=== PATIENT | female | born 1965 | race Caucasian/White ===

== ENCOUNTER 2021-01-03 19:38 | Inpatient (IN) | payer MEDICARE, SELFPAY ==
--- NOTE | ~2021-01-03 | XR_ITS ---
EXAMINATION: XR CHEST CLINICAL INFORMATION: Tachypnea. COMPARISON: Chest done on 04/12/2019. TECHNIQUE: Frontal view of the chest was obtained. FINDINGS: Persistent stable linear airspace disease is noted at left lung base, most consistent with pleuroparenchymal scar or atelectasis. The remainder of the lung mclean are clear. Previously documented pulmonary venous congestion shows interval resolution. Cardiac mediastinal silhouette is within normal limit. No evidence of pleural effusion or pneumothorax. XR/XR chest 1V IMPRESSION: No radiographic evidence of any acute cardiopulmonary disease.
[2021-01-03 19:48] VITALS: BP 137/77; BP 150/90; PULSE 100; PULSE 105; RESP 20; TEMP 36.7; O2SAT 98; BMI 39.1
--- NOTE | 2021-01-03 20:33 | ED_ITS ---
HPI - Psych General Chief Complaint: ETOH/Substance Use Stated Complaint: etoh Time Seen by Provider: 01/03/21 19:54 Source: patient and EMS Mode of arrival: EMS Limitations: no limitations History of Present Illness HPI Narrative: This is a 55-year-old female with a past medical history of depression here with complaints of increasing depression over the last 3 weeks with suicidal thoughts. Patient denies any plan. She tells me this is the 1 year anniversary of her son's . For the last 3 weeks she has not showered, not left her house, poor p.o. intake. She tells me that her parents spoke to her psychiatrist today who sent the police to her house for wellness check. She did have several drinks of vodka sodas prior to arrival. She does not drink daily. Denies substance use. No physical complaints Related Data Home Medications Medication Instructions Recorded Confirmed dextroamphetamine-amphetamine 30 1 tab PO BID 01/03/21 01/03/21 mg tablet lorazepam 0.5 mg tablet 1 tab PO TID PRN 01/03/21 01/03/21 lurasidone 60 mg tablet (Latuda) 1 tab PO BEDTIME 01/03/21 01/03/21 Allergies Allergy/AdvReac Type Severity Reaction Status Date / Time No Known Allergies Allergy Unknown Unverified 11/20/19 16:06 Review of Systems Review of Systems: Yes all other systems are reviewed and are negative Constitutional: Constitutional: Reports no additional constitutional complaints, Denies body ache(s), Denies chills, Denies fever(s), Denies headache(s) and Denies weakness Eyes: Eyes: Reports no additional eye complaints and Denies change in vision ENT: Reports system reviewed and no additional complaints, except as documented, Denies dizziness, Denies headache(s), Denies nasal congestion, Denies nasal discharge and Denies neck pain Cardiovascular: Cardiovascular: Reports no additional cardiovascular complaints, Denies chest pain, Denies leg edema and Denies dyspnea Respiratory: Respiratory: Reports no additional respiratory complaints, Denies cough and Denies dyspnea Gastrointestinal: Gastrointestinal: Reports no additional gastrointestinal complaints, Denies abdominal pain, Denies diarrhea, Denies nausea and Denies vomiting Genitourinary: Genitourinary: Reports no additional female genitourinary complaints and Denies urinary incontinence Musculoskeletal: Musculoskeletal: Reports no additional musculoskeletal complaints, Denies back pain, Denies arthralgias, Denies joint swelling, Denies neck pain, Denies numbness and Denies tingling Integumentary/Breasts: Skin/Breast: Reports system reviewed and no additional complaints, except as docu and Denies rash Neurologic: Reports system reviewed and no additional complaints, except as documented, Denies Abnormal speech present, Denies dizziness, Denies headache (s), Denies numbness, Denies tingling and Denies weakness Psychiatric: Psychiatric: Denies anxiety, Reports depression, Denies homicidal ideation and Reports suicidal ideation [facility] Past Medical History Attestation statement: The following information was validated with the patient. Source: old records reviewed and nursing notes reviewed Social History Social History Advance Directives: No Physical Exam Vital Signs: Vital Signs: Last Vital Signs Temp 98.0 F 01/03/21 19:48 Pulse 105 H 01/03/21 19:48 Resp 20 01/03/21 19:48 BP 137/77 01/03/21 19:48 Pulse Ox 98 01/03/21 19:48 Body Mass Index 39.1 Const: Other: Very disheveled General: cooperative Orientation/consciousness: patient oriented x3 Limitations: no limitations HENMT: Head: Yes normal to inspection Ears: hearing grossly normal bilaterally General nose exam: Normal external nose present Face and sin us: Yes normal facial exam Mouth: Normal oral and palatal mucosa present Throat: Yes posterior oropharynx normal Eyes: General: appearance normal, both eyes and all related structures Pupils: Equal, round and reactive pupils present Neck: Neck: Yes normal visual inspection Chest: Chest palpation & inspection: normal inspection of the chest Resp: Effort & Inspection: normal respiratory effort Auscultation: clear to auscultation bilaterally Cardio: Rate: regular rate Rhythm: regular rhythm Peripheral pulses: Peripheral pulses 2+ throughout GI: Inspection: Yes normal to inspection Palpation (GI): Soft to palpation and nontender Auscultation: normal bowel sounds Back/Spine/Pelvis: Thoracic/Lumbar Spine: thoracic and lumbar spine normal to inspection Skin: General skin exam: no rashes or lesions noted Neuro: General: patient oriented x3, no focal motor deficits and normal sensat ion to monofilament Cranial nerves: Yes CN's II-XII intact bilaterally and Yes Equal, round and reactive pupils present Cognition (Neuro): normal cognition Speech: No Abnormal speech present Gait exam (Neuro): Normal gait present Motor exam (neuro): 5/5 motor strength present throughout Extrem: General: Yes normal to inspection, Yes no pedal edema and Yes no calf tenderness Course Course Course Narrative: 55-year-old female here with complaints of depression, vague SI for the last few weeks on due to an anniversary of her son's . Also very disheveled, not showering, poor p.o. intake, has left her house in 3 weeks. Lost her job. Will need labs, COVID screen, drug screen. No concern for acute ingestion or trauma. Signed a Section 12 and placed on chart. 2210-reviewed labs. Mild hypokalemia. Ordered replacement. Mildly elevated LFTs likely secondary to alcohol use.. No concern for acute ingestion or trauma. Placed in physician observation pending a crisis evaluation and disposition MDM - Psych Medical Records Attestation: I reviewed the patient's medical records. Lab Data Attestation: I reviewed the patient's lab results. Result diagrams: 01/03/21 21:06 01/03/21 21:06 Labs: Lab Results 01/03/21 01/03/21 01/03/21 Range/Units 21:06 21:06 21:06 WBC 10.1 (4.8-10.8) X10*3/uL RBC 3.44 L (4.20-5.50) X10*6/uL Hgb 11.1 L (12.0-16.0) g/dl Hct 32.7 L (37.0-47.0) % MCV 95.1 (80.0-98.0) fL MCH 32.3 (27.0-33.0) pg MCHC 33.9 (31.0-35.0) g/dl RDW 19.9 H (11.0-16.0) % Plt Count 181 (160-400) X10*3/uL MPV 9.2 L (9.4-12.3) fL Immature Gran % (Auto) 0.8 H (0.0-0.4) % Neut % (Auto) 68.0 (45-73) % Lymph % (Auto) 24.0 (20-40) % [place] % (Auto) 4.5 (2-11) % Eos % (Auto) 2.5 (0-4) % Baso % (Auto) 0.2 (0-2) % Lymph # (Auto) 2.4 (1.2-4.9) X10*3/uL [place] # (Auto) 0.5 (0.1-1.2) X10*3/uL Eos # (Auto) 0.3 (0.0-0.4) X10*3/uL Baso # (Auto) 0.0 (0.0-0.2) X10*3/uL Abs Immat Gran (auto) 0.08 H (0.00-0.03) X10*3/uL Absolute Neuts (auto) 6.87 (2.0-8.3) x10*3/uL Absolute Nucleated RBC 0.000 (0.0-0.012) X10*3/uL Nucleated RBC % (auto) 0.0 (0.0-0.2) /100WBC Sodium 141 (135-145) mmol/L Potassium 3.0 L (3.3-5.1) mmol/L Chloride 97 (96-108) mmol/L Carbon Dioxide 27 (22-29) mmol/L Anion Gap 20 (12-20) BUN 6 L (9-16) mg/dL Creatinine 0.57 (0.5-1.4) mg/dL Estim Creat Clear Calc 143.1 Estimated GFR > 60 Random Glucose 103 (60-115) mg/dL Calcium 8.6 (8.4-10.2) mg/dL Total Bilirubin 1.1 H (0.0-1.0) mg/dL Direct Bilirubin 0.5 (0.0-0.5) mg/dL AST 103 H (5-31) U/L ALT 43 H (0-31) U/L Alkaline Phosphatase 129 H (39-117) U/L Total Protein 6.4 L (6.5-8.0) g/dL Albumin 3.8 (3.5-5.0) g/dL Salicylates < 5.0 L (15-30) mg/dL Acetaminophen < 1 (<30) mcg/mL Ethyl Alcohol mg/dL COVID-19 (LYNDA) Negative (Negative) COVID-19 Clin Com See Note 01/03/21 Range/Units 21:06 WBC (4.8-10.8) X10*3/uL RBC (4.20-5.50) X10*6/uL Hgb (12.0-16.0) g/dl Hct (37.0-47.0) % MCV (80.0-98.0) fL MCH (27.0-33.0) pg MCHC (31.0-35.0) g/dl RDW (11.0-16.0) % Plt Count (160-400) X10*3/uL MPV (9.4-12.3) fL Immature Gran % (Auto) (0.0-0.4) % Neut % (Auto) (45-73) % Lymph % (Auto) (20-40) % [place] % (Auto) (2-11) % Eos % (Auto) (0-4) % Baso % (Auto) (0-2) % Lymph # (Auto) (1.2-4.9) X10*3/uL [place] # (Auto) (0.1-1.2) X10*3/uL Eos # (Auto) (0.0-0.4) X10*3/uL Baso # (Auto) (0.0-0.2) X10*3/uL Abs Immat Gran (auto) (0.00-0.03) X10*3/uL Absolute Neuts (auto) (2.0-8.3) x10*3/uL Absolute Nucleated RBC (0.0-0.012) X10*3/uL Nucleated RBC % (auto) (0.0-0.2) /100WBC Sodium (135-145) mmol/L Potassium (3.3-5.1) mmol/L Chloride (96-108) mmol/L Carbon Dioxide (22-29) mmol/L Anion Gap (12-20) BUN (9-16) mg/dL Creatinine (0.5-1.4) mg/dL Estim Creat Clear Calc Estimated GFR Random Glucose (60-115) mg/dL Calcium (8.4-10.2) mg/dL Total Bilirubin (0.0-1.0) mg/dL Direct Bilirubin (0.0-0.5) mg/dL AST (5-31) U/L ALT (0-31) U/L Alkaline Phosphatase (39-117) U/L Total Protein (6.5-8.0) g/dL Albumin (3.5-5.0) g/dL Salicylates (15-30) mg/dL Acetaminophen (<30) mcg/mL Ethyl Alcohol 260 mg/dL COVID-19 (LYNDA) (Negative) COVID-19 Clin Com Discharge Plan Discharge Clinical Impression: Depression, Suicidal thoughts Prescriptions: No Action dextroamphetamine-amphetamine 30 mg tablet 1 tab PO BID RF: 0 lorazepam 0.5 mg tablet 1 tab PO TID PRN (Reason: Anxiety) RF: 0 Latuda 60 mg tablet 1 tab PO BEDTIME RF: 0
--- NOTE | 2021-01-03 20:44 | MHC.CARE ---
CARE team consult received for pt who arrived to ED via ambulance s/p wellness check. She is intoxicated at this time and reported to the provider that it's the first anniversary of her son's and that she doesn't want to be alive anymore. Per family- she has had poor ADLs for the last few weeks. Consult is pending BAL and being medically/clinically appropriate for interview. Pt has [employer] insurance and if a full crisis evaluation is needed she will be referred to [facility] crisis.
--- NOTE | 2021-01-03 20:56 | PHA.MEDREC ---
Pharmacy Consult ? Medication Reconciliation Pharmacy has completed the medication reconciliation. Yolis De La CruzD
[2021-01-03 21:11] LABS: MANUAL DIFF FLAG NO
[2021-01-03 21:23] LABS: Basophils Percent Auto 0.2 % (0-2); Eosinophils Absolute Auto 0.3 X10*3/uL (0.0-0.4); Eosinophils Percent Auto 2.5 % (0-4); Hematocrit 32.7 % (37.0-47.0); Hemoglobin 11.1 g/dl (12.0-16.0); Imm Gran Abs Auto 0.08 X10*3/uL (0.00-0.03); Imm Gran Pct Auto 0.8 % (0.0-0.4); Lymphocytes Absolute Auto 2.4 X10*3/uL (1.2-4.9); Mean Corpuscular HGB Conc 33.9 g/dl (31.0-35.0); Mean Corpuscular Hemoglobin 32.3 pg (27.0-33.0); Mean Corpuscular Volume 95.1 fL (80.0-98.0); Mean Platelet Volume 9.2 fL (9.4-12.3); Monocytes Absolute Auto 0.5 X10*3/uL (0.1-1.2); Monocytes Percent Auto 4.5 % (2-11); Neutrophils Absolute Auto 6.87 x10*3/uL (2.0-8.3); Platelet Count 181 X10*3/uL (160-400); Red Blood Count 3.44 X10*6/uL (4.20-5.50); Red Cell Distribution Width 19.9 % (11.0-16.0); White Blood Count 10.1 X10*3/uL (4.8-10.8)
[2021-01-03 21:28] LABS: COVID-19 Test Negative (Negative)
[2021-01-03 21:38] LABS: Ethanol 260 mg/dL
[2021-01-03 21:42] LABS: Acetaminophen LAB < 1 mcg/mL (<30); Alanine Aminotransferase 43 U/L (0-31); Albumin Level 3.8 g/dL (3.5-5.0); Alkaline Phosphatase 129 U/L (39-117); Anion Gap 20 (12-20); Aspartate Amino Transferase 103 U/L (5-31); Bilirubin Direct 0.5 mg/dL (0.0-0.5); Bilirubin Total 1.1 mg/dL (0.0-1.0); Blood Urea Nitrogen 6 mg/dL (9-16); Calcium 8.6 mg/dL (8.4-10.2); Carbon Dioxide 27 mmol/L (22-29); Chloride 97 mmol/L (96-108); Creatinine Clr Calc Pharmacy 143.1; Estimated Glomerular Filt Rate > 60; Glucose Random 103 mg/dL (60-115); Sodium 141 mmol/L (135-145); Total Protein 6.4 g/dL (6.5-8.0)
[2021-01-03 21:43] LABS: Salicylate < 5.0 mg/dL (15-30)
[2021-01-03 23:28] VITALS: BP 129/49; PULSE 98; RESP 17; TEMP 36.6; O2SAT 93
--- NOTE | 2021-01-04 | ECG_ITS ---
Test Reason : TACHYCARDIA Blood Pressure : / mmHG Vent. Rate : 118 BPM Atrial Rate : 118 BPM P-R Int : 140 ms QRS Dur : 068 ms QT Int : 330 ms P-R-T Axes : 043 010 002 degrees QTc Int : 462 ms Sinus tachycardia Nonspecific ST abnormality Abnormal ECG When compared with ECG of 12-APR-2019 08:39, Vent. rate has increased BY [address] now depressed in Lateral leads Referred By: Laure Hester Electronically Signed By:BIANCA CORTEZ MD
[2021-01-04] MEDS: Albuterol Sulfate 90 MCG 8 GM INHALER 1 PUFF INHALE ×2 (00:09→08:12)
[2021-01-04] MEDS: LORazepam 0.5 MG TABLET PO (05:17)
--- NOTE | 2021-01-04 05:25 | PC.NURSE ---
Patient slept through the night, no distress observed/reported, scored 2 on CIWA, requested PRN Ativan 0.5 mg said she takes every morning, administered as ordered, behavior appropriate, medication compliant, [facility] referral completed/confirmed, patient will be seen by N in the morning, VSS, will continue to monitor.
[2021-01-04 05:50] LABS: Amphetamine Screen Urine Not Detected (Not Detect); Barbiturates, Urine Not Detected (Not Detect); Benzodiazepines Screen Urine Not Detected (Not Detect); Cannabinoid Screen Urine Not Detected (Not Detect); Cocaine Screen Urine Not Detected (Not Detect); Fentanyl, urine Not Detected (Not Detect); Opiate Screen Urine Not Detected (Not Detect); Phencyclidine Screen Urine Not Detected (Not Detect)
[2021-01-04 06:13] LABS: Appearance Urine CLEAR; Color Urine DK YELLOW; Glucose Urine UA NEG (NEG); Leukocyte Esterase Urine NEG (NEG); Nitrite Urine NEG (NEG); Urine Blood NEG (NEG); Urine Ketones 5 MG/DL (NEG); Urine Protein NEG (NEG-TRACE)
--- NOTE | 2021-01-04 07:26 | PC.NURSE ---
patient appears to remain asleep at present respirations are even and unlabored, patient appears in no distress
[2021-01-04 07:58] VITALS: BP 195/84; PULSE 110; RESP 15; TEMP 37.9; O2SAT 91
[2021-01-04] MEDS: chlordiazePOXIDE HCl 5 MG CAPSULE 25 MG PO (08:04)
[2021-01-04] MEDS: Acetaminophen 325 MG TABLET 975 MG PO (08:04)
[2021-01-04] MEDS: Potassium Chloride ER 20 MEQ TAB.ER.PRT 60 MEQ PO (08:04)
[2021-01-04] MEDS: Amphetamine Mixed Salts 10 MG TABLET 30 MG PO ×2 (08:04→13:03)
--- NOTE | 2021-01-04 11:46 | MHC.CARE ---
Patient evaluated by the CARE Team, she will require an inpatient psychiatric admission, the plan is for her to remain in the ED until a placement is secured, she is voluntary for treatment. Providers updated
[2021-01-04] MEDS: chlordiazePOXIDE HCl 5 MG CAPSULE 50 MG PO (11:59)
[2021-01-04 15:07] VITALS: BP 196/96; PULSE 120; RESP 20; TEMP 37.3; O2SAT 96
[2021-01-04] MEDS: PHENobarbitaL sodium 130 MG/ML VIAL 246 MG IM (15:46)
[2021-01-04] MEDS: LORazepam 2 MG/ML VIAL IVPUSH (15:50)
[2021-01-04] MEDS: Magnesium Sulfate/H2O 2 GM/50 ML PIGGYBACK IV (15:51)
[2021-01-04] MEDS: Thiamine HCL 100 MG in 0.9 % Sodium Chloride 100 ML 202 MG IV (15:52)
[2021-01-04] MEDS: 0.9 % Sodium Chloride 1,000 ML 999 ML IVCONT ×2 (15:55→17:42)
[2021-01-04 15:59] LABS: MANUAL DIFF FLAG NO
[2021-01-04 16:02] LABS: Basophils Percent Auto 0.2 % (0-2); Eosinophils Absolute Auto 0.2 X10*3/uL (0.0-0.4); Hemoglobin 11.4 g/dl (12.0-16.0); Imm Gran Abs Auto 0.06 X10*3/uL (0.00-0.03); Imm Gran Pct Auto 0.7 % (0.0-0.4); Lymphocytes Absolute Auto 1.5 X10*3/uL (1.2-4.9); Lymphocytes Percent Auto 16.2 % (20-40); Mean Corpuscular HGB Conc 33.5 g/dl (31.0-35.0); Mean Corpuscular Hemoglobin 32.1 pg (27.0-33.0); Mean Corpuscular Volume 95.8 fL (80.0-98.0); Mean Platelet Volume 8.6 fL (9.4-12.3); Monocytes Absolute Auto 0.5 X10*3/uL (0.1-1.2); Neutrophils Percent Auto 75.9 % (45-73); Platelet Count 164 X10*3/uL (160-400); Red Blood Count 3.55 X10*6/uL (4.20-5.50); Red Cell Distribution Width 20.1 % (11.0-16.0); White Blood Count 9.1 X10*3/uL (4.8-10.8)
--- NOTE | 2021-01-04 16:06 | PC.NURSE ---
patient a&ox3, iv inserted, labs drawn, ekg performed, patient placed on cardiac monitor technician- sinus tach on monitor, vss, pt medicated per order, librium held per provider, pharmacy called for folic acid- will administer upon it being delivered to ed, will continue to monitor.
[2021-01-04 16:19] LABS: Anion Gap 17 (12-20); Blood Urea Nitrogen 10 mg/dL (9-16); Calcium 8.7 mg/dL (8.4-10.2); Carbon Dioxide 30 mmol/L (22-29); Chloride 99 mmol/L (96-108); Estimated Glomerular Filt Rate > 60; Glucose Random 110 mg/dL (60-115); Potassium 3.5 mmol/L (3.3-5.1); Sodium 142 mmol/L (135-145)
[2021-01-04] MEDS: Folic Acid 1 MG in 0.9 % Sodium Chloride 50 ML 100.4 MG IV (17:13)
[2021-01-04 17:23] VITALS: BP 174/92; PULSE 107; RESP 22; TEMP 37.3; O2SAT 94
[2021-01-04 18:47] VITALS: BP 182/85; PULSE 112; RESP 24; TEMP 37.1; O2SAT 95
--- NOTE | 2021-01-04 20:06 | P.HPHOSP_ITS ---
History of Present Illness Date of Service: 01/04/21 Chief Complaint: SI, alcohol withdrawal 55-year-old female with history of bipolar disorder who presents to the hospital after being found at home intoxicated and reporting suicidal ideation. According to report some family member had called police department to do a wellness check on patient, they found her to be intoxicated and held only drinking. Of according to the patient is her son's 1 year anniversary and she has been feeling very depressed. She was initially admitted for behavioral health but was found to be withdrawing from alcohol and therefore transferred to medical ED and evaluated for alcohol withdrawal. Patient reports that she dr inks heavily every day, she is complaining of feeling anxious, but denies any suicidal ideation at this time, she denies having any chest pain, no shortness of breath, no abdominal pain nausea or vomiting, no diarrhea constipation, no urinary symptoms and no lower extremity edema. Of note patient reports that she has history of hypertension but has stopped taking med medication about a year and half ago because she has been able To get in to see her doctor Vitals reviewed show a temperature of a 100.2?, heart rate of 110, blood pressure 195/84, satting 91% on room air Labs are significant for WBC count of 8.2, hemoglobin of 9.6 which is lower than her baseline of around 15, platelet count of 157, potassium of 3.0, Patient will be admitted for management of alcohol withdrawal Review of Systems Review of Systems: Yes all other systems are reviewed and are negative [facility] Medical History Bipolar disorder Hypertension Pertinent family history: No family history Surgical History History of Social History Alcohol intake: current Alcohol intake frequency: 3 or more drinks per day Alcohol type: hard liquor Patient Tobacco Use Status: Former Tobacco user Use of substances other than those prescribed or required for medical reasons: No Advance Directives: No Guardian: No service: No Current occupational status: unemployed Meds Allergies Allergy/AdvReac Type Severity Reaction Status Date / Time No Known Allergies Allergy Unknown Unverified 11/20/19 16:06 Active Medications: Current Medications Albuterol Sulfate (Albuterol Sulfate 90 Mcg 8 Gm Inhaler) 1 puff INHALE Q4H PRN PRN Reason: wheezing Last Admin: 01/04/21 08:12 Dose: 1 puff Documented by: Amphetamine/Dextroamphetamine (Amphetamine Mixed Salts 10 Mg Tablet) 30 mg PO BID@0830,1330 [facility] Last Admin: 01/04/21 13:03 Dose: 30 mg Documented by: Lurasidone HCl (Lurasidone Hcl 20 Mg Tablet) 60 mg PO BEDTIME [facility] Medication (No Benzodiazepines) 1 each MISCELLANE DAILY [facility] Pharmacy Consult (Consult Rx Perform Med Rec) 1 each MISCELLANE ONCE PRN PRN Reason: Consult order Phenobarbital (Phenobarbital 15 Mg Tablet) 45 mg PO BID [facility] Stop: 01/06/21 21:01 Phenobarbital (Phenobarbital 30 Mg Tablet) 30 mg PO BID [facility] Stop: 01/08/21 21:01 Phenobarbital (Phenobarbital 15 Mg Tablet) 15 mg PO DAILY [facility] Stop: 01/10/21 09:01 Phenobarbital Sodium (Phenobarbital Sodium 130 Mg/Ml Vial) 185 mg IM 1999,2299 [facility] Stop: 01/04/21 23:01 Home Medications Medication Instructions Recorded Confirmed Last Taken Type albuterol sulfate 90 mcg/actuation 1 puff INHALATION Q4H PRN 01/03/21 01/03/21 Unknown History aerosol inhaler dextroamphetamine-amphetamine 30 1 tab PO BID 01/03/21 01/03/21 01/03/21 History mg tablet lorazepam 0.5 mg tablet 1 tab PO TID PRN 01/03/21 01/03/21 Unknown History lurasidone 60 mg tablet (Latuda) 1 tab PO BEDTIME 01/03/21 01/03/21 Unknown History Physical Exam Vital Signs and Narrative: Vital Signs: Last Vital Signs Temp 98.7 F 01/04/21 18:47 Pulse 112 H 01/04/21 18:47 Resp 24 H 01/04/21 18:47 BP 182/85 H 01/04/21 18:47 Pulse Ox 95 01/04/21 18:47 Body Mass Index 39.1 Const: General: cooperative and no acute distress Orientation/consciousness: patient oriented x3 Eyes: General: appearance normal, both eyes and all related structures Pupils: Equal, round and reactive pupils present Resp: Effort & Inspection: normal respiratory effort Auscultation: clear to auscultation bilaterally Cardio: Rate: regular rate Rhythm: regular rhythm GI: Palpation (GI): Soft to palpation Auscultation: normal bowel sounds Skin: General skin exam: no rashes or lesions noted Neuro: General: patient oriented x3 Cranial nerves: Yes Equal, round and reactive pupils present Cognition (Neuro): normal cognition Extrem: General: Yes normal to inspection and Yes no pedal edema Results Labs CBC and Chem 7: 01/05/21 05:56 01/05/21 05:56 Labs: Laboratory Results - last 24 hr 01/03/21 01/03/21 01/03/21 21:06 21:06 21:06 MCV 95.1 MCH 32.3 MCHC 33.9 RDW 19.9 H Plt Count 181 MPV 9.2 L Immature Gran % (Auto) 0.8 H Neut % (Auto) 68.0 Lymph % (Auto) 24.0 Glenn % (Auto) 4.5 Eos % (Auto) 2.5 Baso % (Auto) 0.2 Lymph # (Auto) 2.4 Glenn # (Auto) 0.5 Eos # (Auto) 0.3 Baso # (Auto) 0.0 Abs Immat Gran (auto) 0.08 H Absolute Neuts (auto) 6.87 Absolute Nucleated RBC 0.000 Nucleated RBC % (auto) 0.0 Anion Gap 20 Estim Creat Clear Calc 143.1 Estimated GFR > 60 Random Glucose 103 Calcium 8.6 Total Bilirubin 1.1 H Direct Bilirubin 0.5 AST 103 H ALT 43 H Alkaline Phosphatase 129 H Total Protein 6.4 L Albumin 3.8 Urine Color Urine Appearance Urine pH Ur Specific [place] Urine Protein Urine Glucose (UA) Urine Ketones Urine Blood Urine Nitrite Ur Leukocyte Esterase Salicylates < 5.0 L Urine Opiates Screen Urine Fentanyl Screen Acetaminophen < 1 Ur Barbiturates Screen Ur Phencyclidine Scrn Ur Amphetamines Screen U Benzodiazepines Scrn Urine Cocaine Screen U Marijuana (THC) Screen Ethyl Alcohol COVID-19 (LYNDA) Negative COVID-19 Clin Com See Note 01/03/21 01/04/21 01/04/21 21:06 05:31 05:31 MCV MCH MCHC RDW Plt Count MPV Immature Gran % (Auto) Neut % (Auto) Lymph % (Auto) [place] % (Auto) Eos % (Auto) Baso % (Auto) Lymph # (Auto) Glenn # (Auto) Eos # (Auto) Baso # (Auto) Abs Immat Gran (auto) Absolute Neuts (auto) Absolute Nucleated RBC Nucleated RBC % (auto) Anion Gap Estim Creat Clear Calc Estimated GFR Random Glucose Calcium Total Bilirubin Direct Bilirubin AST ALT Alkaline Phosphatase Total Protein Albumin Urine Color DK YELLOW Urine Appearance CLEAR Urine pH 6.0 Ur Specific [place] 1.010 Urine Protein NEG Urine Glucose (UA) NEG Urine Ketones 5 Urine Blood NEG Urine Nitrite NEG Ur Leukocyte Esterase NEG Salicylates Urine Opiates Screen Not Detected Urine Fentanyl Screen Not Detected Acetaminophen Ur Barbiturates Screen Not Detected Ur Phencyclidine Scrn Not Detected Ur Amphetamines Screen Not Detected U Benzodiazepines Scrn Not Detected Urine Cocaine Screen Not Detected U Marijuana (THC) Screen Not Detected Ethyl Alcohol 260 COVID-19 (LYNDA) COVID-[place] 01/04/21 01/04/21 15:49 15:49 MCV 95.8 MCH 32.1 MCHC 33.5 RDW 20.1 H Plt Count 164 MPV 8.6 L Immature Gran % (Auto) 0.7 H Neut % (Auto) 75.9 H Lymph % (Auto) 16.2 L [place] % (Auto) 5.0 Eos % (Auto) 2.0 Baso % (Auto) 0.2 Lymph # (Auto) 1.5 Glenn # (Auto) 0.5 Eos # (Auto) 0.2 Baso # (Auto) 0.0 Abs Immat Gran (auto) 0.06 H Absolute Neuts (auto) 6.90 Absolute Nucleated RBC 0.000 Nucleated RBC % (auto) 0.0 Anion Gap 17 Estim Creat Clear Calc 136.0 Estimated GFR > 60 Random Glucose 110 Calcium 8.7 Total Bilirubin Direct Bilirubin AST ALT Alkaline Phosphatase Total Protein Albumin Urine Color Urine Appearance Urine pH Ur Specific [place] Urine Protein Urine Glucose (UA) Urine Ketones Urine Blood Urine Nitrite Ur Leukocyte Esterase Salicylates Urine Opiates Screen Urine Fentanyl Screen Acetaminophen Ur Barbiturates Screen Ur Phencyclidine Scrn Ur Amphetamines Screen U Benzodiazepines Scrn Urine Cocaine Screen U Marijuana (THC) Screen Ethyl Alcohol COVID-19 (LYNDA) COVID-19 [employer] Assessment and Plan (1) Alcohol withdrawal syndrome: Qualifiers: Complication of substance-induced condition: uncomplicated Qualified Code(s): F10.230 - Alcohol dependence with withdrawal, uncomplicated Status: Acute (2) Suicidal thoughts: Status: Acute (3) Hypertensive crisis: Status: Acute 55-year-old female with past medical history of who hypertension noncompliant with medication presents to the hospital with suicidal ideation as well as alcohol withdrawal # alcohol abuse with alcohol withdrawal - patient is a daily alcohol drinker, brought into the hospital initially for suicidal ideation, developed alcohol withdrawal symptoms , start on phenobarb protocol - thiamine and folic acid supplement # suicidal ideation - has history of bipolar disorder as well as reports depression after the loss of her son - sitter at bedtime - crisis team consulted by ED # hypertension crisis - most likely driven by alcohol withdrawal and also history of noncompliance with medications - does not remember her previous antihypertensive - will treat alcohol withdrawal as well as start her on amlodipine 5 mg daily # tachycardia, tachypnea - although most likely driven by alcohol withdrawal, will rule out infection, will obtain chest x-ray as well as UA - patient afebrile, has no leukocytosis DVT prophylaxis: Lovenox Quality Stroke Does the patient have a stroke diagnosis?: No VTE Prior VTE?: No VTE Risk Level:: Medical - moderate - high VTE Device Contraindication: Treatment Not Indicated VTE Drug Contraindication: N/A - Med Ordered
[2021-01-04] MEDS: PHENobarbitaL sodium 130 MG/ML VIAL 185 MG IM ×2 (20:07→23:14)
[2021-01-04] MEDS: Lurasidone HCl 20 MG TABLET 60 MG PO (21:18)
[2021-01-04 21:30] VITALS: BP 154/88; PULSE 113; RESP 24; TEMP 36.9; O2SAT 94
--- NOTE | 2021-01-04 23:02 | MHC.CM.PN ---
CM met with admitted patient with bed assignment pending. Reviewed CARE team note. Pt will need in house psych admission when medically cleared. IMM reviewed and signed per protocol 01/04/2021 @ 2206. Pt is very concerned that once she is not in withdrawal she will be d/c home. Re-assured patient that according to the CARE team assessment, patient will need in house psych to deal with her depression and inability to care for herself. Pt is very pleasant and forthcoming, but a bit teary. First anniversary of her 26 year old sons from an accidental overdose. Pt lives in her father's 3 family home on the 2nd floor. States her father helps her quite a bit. Uses a walker and a cane. Has services through [facility]. Therapist and Ranjeet Hawthorne APRN. Pt does not have a PCP. Has been going to urgent care for the past several years. Pt is fully vaccinated with J&J 08/2020. No HCP on file. Reviewed and completed. Copies given and uploaded into [facility] [employer] and [facility]. HCP/father Oskar Ennis ([phone], ). D/C plan is for in house psych hospitalization when medically cleared . CM and CARE team to follow for d/c needs.
[2021-01-05] VITALS (11 sets, daily range): BP systolic 144–189; BP diastolic 71–95; PULSE 105–115; RESP 16–25; TEMP 37.2–37.3; O2SAT 94–97
[2021-01-05] MEDS: Thiamine HCL 100 MG TABLET PO (02:32)
[2021-01-05] MEDS: Enoxaparin Sodium 40 MG/0.4 ML SYRINGE SUBCUT (02:32)
[2021-01-05] MEDS: Folic Acid 1 MG TABLET PO (02:32)
[2021-01-05] MEDS: 0.9 % Sodium Chloride Flush 3 ML SYRINGE IVFLUSH ×2 (02:58→08:30)
[2021-01-05 06:12] LABS: MANUAL DIFF FLAG NO
[2021-01-05 06:15] LABS: Basophils Percent Auto 0.1 % (0-2); Eosinophils Absolute Auto 0.2 X10*3/uL (0.0-0.4); Eosinophils Percent Auto 2.8 % (0-4); Hematocrit 28.5 % (37.0-47.0); Hemoglobin 9.6 g/dl (12.0-16.0); Imm Gran Abs Auto 0.06 X10*3/uL (0.00-0.03); Imm Gran Pct Auto 0.7 % (0.0-0.4); Lymphocytes Absolute Auto 1.7 X10*3/uL (1.2-4.9); Lymphocytes Percent Auto 20.4 % (20-40); Mean Corpuscular HGB Conc 33.7 g/dl (31.0-35.0); Mean Corpuscular Hemoglobin 32.7 pg (27.0-33.0); Mean Corpuscular Volume 96.9 fL (80.0-98.0); Mean Platelet Volume 8.9 fL (9.4-12.3); Monocytes Absolute Auto 0.4 X10*3/uL (0.1-1.2); Monocytes Percent Auto 4.4 % (2-11); Neutrophils Absolute Auto 5.87 x10*3/uL (2.0-8.3); Neutrophils Percent Auto 71.6 % (45-73); Platelet Count 157 X10*3/uL (160-400); Red Blood Count 2.94 X10*6/uL (4.20-5.50); Red Cell Distribution Width 20.1 % (11.0-16.0); White Blood Count 8.2 X10*3/uL (4.8-10.8)
--- NOTE | 2021-01-05 06:35 | PC.NURSE ---
Pt notified MARI Kaufman that she is feeling anxious. Mandeep made this RN aware. This RN to bedside, assessed pt's VS and CIWA which are elevated. Ladarius Monson, primary RN made aware who contacted Dr Harry to notify. Plan for additional dose of phenobarb.
[2021-01-05 06:39] LABS: Anion Gap 13 (12-20); Blood Urea Nitrogen 8 mg/dL (9-16); Calcium 8.2 mg/dL (8.4-10.2); Carbon Dioxide 30 mmol/L (22-29); Chloride 99 mmol/L (96-108); Estimated Glomerular Filt Rate > 60; Glucose Random 91 mg/dL (60-115); Potassium 3.2 mmol/L (3.3-5.1); Sodium 139 mmol/L (135-145)
[2021-01-05] MEDS: PHENobarbitaL sodium 130 MG/ML VIAL IM (06:48)
[2021-01-05 07:30] LABS: Magnesium 1.6 mg/dL (1.6-2.6)
[2021-01-05] MEDS: Potassium Chloride Packet 20 MEQ PACKET 40 MEQ PO ×2 (08:31→13:26)
[2021-01-05] MEDS: amLODIPine Besylate 5 MG TABLET PO (08:38)
[2021-01-05] MEDS: Amphetamine Mixed Salts 10 MG TABLET 30 MG PO ×2 (08:52→13:53)
[2021-01-05] MEDS: PHENobarbitaL 15 MG TABLET 45 MG PO ×2 (09:53→20:43)
--- NOTE | 2021-01-05 10:30 | PC.NURSE ---
pt a/o x 3 no sob/robert noted skin pink warn dry speaks in full sentences. pt denies any si/hi.
[2021-01-05] MEDS: Albuterol Sulfate 90 MCG 8 GM INHALER 1 PUFF INHALE (14:16)
[2021-01-05] MEDS: Metoprolol Tartrate 25 MG TABLET PO ×2 (14:56→20:43)
--- NOTE | 2021-01-05 15:44 | HO.PM.IMPN ---
Subjective Subjective Date of Service: 01/05/21 Interval History: No acute events overnight on phenobarb protocol. No overt signs of withdrawal; no seizures Review of Systems Denies chest pain Denies shortness of breath Denies nausea vomiting diarrhea Physical Exam Vital Signs: Vital Signs: Last Vital Signs Temp 99.1 F 01/05/21 13:40 Pulse 115 H 01/05/21 14:56 Resp 20 01/05/21 14:54 BP 157/84 H 01/05/21 14:56 Pulse Ox 96 01/05/21 14:54 Body Mass Index 39.1 Const: Other: No acute distress HENMT: Other: Membranes moist oropharynx clear Resp: Other: Clear to auscultation bilaterally no rales rhonchi wheezes Cardio: Other: No S4; positive S1-S2; no S3 murmurs of gallops GI: Other: Soft nontender nondistended with normoactive bowel sounds x4 quadrants Neuro: Other: Cranial nerves 2-12 grossly intact as tested. Motor is 5/5 all extremities. Sensation is intact. Cognition is appropriate. Mild tremors bilateral upper extremities Objective Data Active Medications Acetaminophen (Acetaminophen 325 Mg Tablet) 650 mg PO Q6H PRN PRN Reason: Pain, Mild (Pain Scale 1-3) Albuterol Sulfate (Albuterol Sulfate 90 Mcg 8 Gm Inhaler) 1 puff INHALE Q4H PRN PRN Reason: wheezing Last Admin: 01/05/21 14:16 Dose: 1 puff Documented by: MIKE Amlodipine Besylate (Amlodipine Besylate 5 Mg Tablet) 5 mg PO DAILY [facility]END[facility] TO [facility]; Protocol Last Admin: 01/05/21 09:55 Dose: Not Given Documented by: HOLDEN Non-Admin Reason: Duplicate Order Amphetamine/Dextroamphetamine (Amphetamine Mixed Salts 10 Mg Tablet) 30 mg PO BID@0830,1330 [facility] Last Admin: 01/05/21 13:53 Dose: 30 mg Documented by: HOLDEN Docusate Sodium (Docusate Sodium 100 Mg Capsule) 100 mg PO DAILY PRN PRN Reason: Constipation Enoxaparin Sodium (Enoxaparin Sodium 40 Mg/0.4 Ml Syringe) 40 mg SUBCUT Q24H PENDING [facility] TO [facility] Last Admin: 01/05/21 02:32 Dose: 40 mg Documented by: CARRIE Folic Acid (Folic Acid 1 Mg Tablet) 1 mg PO DAILY [facility] TO [facility] Last Admin: 01/05/21 09:55 Dose: Not Given Documented by: HOLDEN Non-Admin Reason: Duplicate Order Lurasidone HCl (Lurasidone Hcl 20 Mg Tablet) 60 mg PO BEDTIME [facility] Last Admin: 01/04/21 21:18 Dose: 60 mg Documented by: CARRIE Medication (No Benzodiazepines) 1 each MISCELLANE DAILY [facility] TO [facility] Metoprolol Tartrate (Metoprolol Tartrate 25 Mg Tablet) 25 mg PO BID [facility]; Protocol Last Admin: 01/05/21 14:56 Dose: 25 mg Documented by: HOLDEN Ondansetron HCl (Ondansetron Hcl 4 Mg/2 Ml Vial) 4 mg IVPUSH Q8H PRN PRN Reason: Nausea and Vomiting Pharmacy Consult (Consult Rx Perform Med Rec) 1 each MISCELLANE ONCE PRN PRN Reason: Consult order Phenobarbital (Phenobarbital 15 Mg Tablet) 45 mg PO BID [facility] Stop: 01/06/21 21:01 Last Admin: 01/05/21 09:53 Dose: 45 mg Documented by: HOLDEN Phenobarbital (Phenobarbital 30 Mg Tablet) 30 mg PO BID [facility] Stop: 01/08/21 21:01 Phenobarbital (Phenobarbital 15 Mg Tablet) 15 mg PO DAILY [facility] Stop: 01/10/21 09:01 Sodium Chloride (0.9 % Sodium Chloride Flush 3 Ml Syringe) 3 ml IVFLUSH QSHIFT PENDING S[facility] TO [facility] Last Admin: 01/05/21 08:30 Dose: 3 ml Documented by: HOLDEN Thiamine HCl (Thiamine Hcl 100 Mg Tablet) 100 mg PO DAILY [facility] Last Admin: 01/05/21 09:55 Dose: Not Given Documented by: HOLDEN Non-Admin Reason: Duplicate Order Labs CBC & Chem 7: 01/05/21 05:56 01/05/21 05:56 Labs: Laboratory Results - last 24 hr 01/04/21 01/04/21 01/05/21 15:49 15:49 05:56 MCV 95.8 96.9 MCH 32.1 32.7 MCHC 33.5 33.7 RDW 20.1 H 20.1 H Plt Count 164 157 L MPV 8.6 L 8.9 L Immature Gran % (Auto) 0.7 H 0.7 H Neut % (Auto) 75.9 H 71.6 Lymph % (Auto) 16.2 L 20.4 [place] % (Auto) 5.0 4.4 Eos % (Auto) 2.0 2.8 Baso % (Auto) 0.2 0.1 Lymph # (Auto) 1.5 1.7 [place] # (Auto) 0.5 0.4 Eos # (Auto) 0.2 0.2 Baso # (Auto) 0.0 0.0 Abs Immat Gran (auto) 0.06 H 0.06 H Absolute Neuts (auto) 6.90 5.87 Absolute Nucleated RBC 0.000 0.000 Nucleated RBC % (auto) 0.0 0.0 Anion Gap 17 Estim Creat Clear Calc 136.0 Estimated GFR > 60 Random Glucose 110 Calcium 8.7 Magnesium 01/05/21 05:56 MCV MCH MCHC RDW Plt Count MPV Immature Gran % (Auto) Neut % (Auto) Lymph % (Auto) [place] % (Auto) Eos % (Auto) Baso % (Auto) Lymph # (Auto) [place] # (Auto) Eos # (Auto) Baso # (Auto) Abs Immat Gran (auto) Absolute Neuts (auto) Absolute Nucleated RBC Nucleated RBC % (auto) Anion Gap 13 Estim Creat Clear Calc 154.0 Estimated GFR > 60 Random Glucose 91 Calcium 8.2 L Magnesium 1.6 Assessment and Plan (1) Alcohol withdrawal syndrome: Status: Acute (2) Suicidal thoughts: Status: Acute Assessment and Plan: 55-year-old female with past medical history of hypertension , noncompliant with medication presents to the hospital with suicidal ideation as well as alcohol withdrawal 1. EToH Withdraw Phenobarb protocol... Admit to telemetry Seizure precautions Beta-gerardo for tachycardia/hypertension Haldol p.r.n. agitation 2. Bipolar disorder with questionable suicidal ideation One-to-one sitter Care team consult once cleared from alcohol withdrawal 3. Hypertension Beta-gerardo titrate to heart rate less than 100/BP 1 20s DC amlodipine DVT prophylaxis: Lovenox Quality Stroke Does the patient have a stroke diagnosis?: No VTE Prior VTE?: No VTE Risk Level:: Medical - moderate - high VTE Device Contraindication: Treatment Not Indicated VTE Drug Contraindication: N/A - Med Ordered
[2021-01-05] MEDS: LORazepam 2 MG/ML VIAL 1 MG IVPUSH (16:11)
[2021-01-05] MEDS: Lurasidone HCl 20 MG TABLET 60 MG PO (20:43)
[2021-01-06] VITALS (7 sets, daily range): BP systolic 126–157; BP diastolic 57–83; PULSE 98–104; RESP 16–19; TEMP 36.3–37.2; O2SAT 92–100; BMI 39.3
[2021-01-06] MEDS: 0.9 % Sodium Chloride Flush 3 ML SYRINGE IVFLUSH ×3 (00:31→15:39)
[2021-01-06] MEDS: diphenhydrAMINE HCL 25 MG TABLET PO (02:00)
[2021-01-06] MEDS: Enoxaparin Sodium 40 MG/0.4 ML SYRINGE SUBCUT (02:00)
[2021-01-06] MEDS: PHENobarbitaL 15 MG TABLET 45 MG PO ×2 (08:42→20:46)
[2021-01-06] MEDS: Folic Acid 1 MG TABLET PO (08:43)
[2021-01-06] MEDS: amLODIPine Besylate 5 MG TABLET PO (08:43)
[2021-01-06] MEDS: Metoprolol Tartrate 25 MG TABLET PO ×2 (08:43→20:47)
[2021-01-06] MEDS: Thiamine HCL 100 MG TABLET PO (08:43)
[2021-01-06] MEDS: Amphetamine Mixed Salts 10 MG TABLET 30 MG PO ×2 (08:43→13:09)
--- NOTE | 2021-01-06 09:40 | MHC.CARE ---
Please consult CARE Team when Pt is medically cleared- Pt was found to meet criteria for [facility] admission on 01/04/21.
[2021-01-06] MEDS: hydrOXYzine HCL 25 MG TABLET PO (13:09)
--- NOTE | 2021-01-06 17:04 | HO.PM.IMPN ---
Subjective Subjective Date of Service: 01/06/21 Interval History: Doing well with phenobarb protocol.. No acute issues mild anxiety Review of Systems Denies chest pain Denies shortness of breath Denies nausea vomiting diarrhea Physical Exam Vital Signs: Vital Signs: Last Vital Signs Temp 97.4 F 01/06/21 15:45 Pulse 104 H 01/06/21 15:45 Resp 17 01/06/21 15:45 BP 150/82 H 01/06/21 16:00 Pulse Ox 100 01/06/21 15:45 Body Mass Index 39.3 Const: Other: No acute distress HENMT: Other: Membranes moist oropharynx clear Resp: Other: Clear to auscultation bilaterally no rales rhonchi wheezes Cardio: Other: No S4; positive S1-S2; no S3 murmurs of gallops GI: Other: Soft nontender nondistended with normoactive bowel sounds x4 quadrants Neuro: Other: Cranial nerves 2-12 grossly intact as tested. Motor is 5/5 all extremities. Sensation is intact. Cognition is appropriate. Mild tremors bilateral upper extremities Objective Data Active Medications Acetaminophen (Acetaminophen 325 Mg Tablet) 650 mg PO Q6H PRN PRN Reason: Pain, Mild (Pain Scale 1-3) Albuterol Sulfate (Albuterol Sulfate 90 Mcg 8 Gm Inhaler) 1 puff INHALE Q4H PRN PRN Reason: wheezing Last Admin: 01/05/21 14:16 Dose: 1 puff Documented by: MIKE Amlodipine Besylate (Amlodipine Besylate 5 Mg Tablet) 5 mg PO DAILY [facility]; Protocol Last Admin: 01/06/21 08:43 Dose: 5 mg Documented by: BEULAH Amphetamine/Dextroamphetamine (Amphetamine Mixed Salts 10 Mg Tablet) 30 mg PO BID@0830,1330 [facility] Last Admin: 01/06/21 13:09 Dose: 30 mg Documented by: BEULAH Docusate Sodium (Docusate Sodium 100 Mg Capsule) 100 mg PO DAILY PRN PRN Reason: Constipation Enoxaparin Sodium (Enoxaparin Sodium 40 Mg/0.4 Ml Syringe) 40 mg SUBCUT Q24H [facility] Last Admin: 01/06/21 02:00 Dose: 40 mg Documented by: ALEKSANDR Folic Acid (Folic Acid 1 Mg Tablet) 1 mg PO DAILY [facility] Last Admin: 01/06/21 08:43 Dose: 1 mg Documented by: BEULAH Hydroxyzine HCl (Hydroxyzine Hcl 25 Mg Tablet) 25 mg PO Q6H PRN PRN Reason: Anxiety Last Admin: 01/06/21 13:09 Dose: 25 mg Documented by: BEULAH Lurasidone HCl (Lurasidone Hcl 20 Mg Tablet) 60 mg PO BEDTIME [facility] Last Admin: 01/05/21 20:43 Dose: 60 mg Documented by: KAILEY Medication (No Benzodiazepines) 1 each MISCELLANE DAILY [facility] Metoprolol Tartrate (Metoprolol Tartrate 25 Mg Tablet) 25 mg PO BID [facility]; Protocol Last Admin: 01/06/21 08:43 Dose: 25 mg Documented by: BEULAH Ondansetron HCl (Ondansetron Hcl 4 Mg/2 Ml Vial) 4 mg IVPUSH Q8H PRN PRN Reason: Nausea and Vomiting Pharmacy Consult (Consult Rx Perform Med Rec) 1 each MISCELLANE ONCE PRN PRN Reason: Consult order Phenobarbital (Phenobarbital 15 Mg Tablet) 45 mg PO BID [facility] Stop: 01/06/21 21:01 Last Admin: 01/06/21 08:42 Dose: 45 mg Documented by: BEULAH Phenobarbital (Phenobarbital 30 Mg Tablet) 30 mg PO BID [facility] Stop: 01/08/21 21:01 Phenobarbital (Phenobarbital 15 Mg Tablet) 15 mg PO DAILY [facility] Stop: 01/10/21 09:01 Sodium Chloride (0.9 % Sodium Chloride Flush 3 Ml Syringe) [facility] Last Admin: 01/06/21 15:39 Dose: 3 ml Documented by: MAVIS Thiamine HCl (Thiamine Hcl 100 Mg Tablet) 100 mg PO DAILY [facility] Last Admin: 01/06/21 08:43 Dose: 100 mg Documented by: BEULAH Labs CBC & Chem 7: 01/05/21 05:56 01/05/21 05:56 Assessment and Plan (1) Alcohol withdrawal syndrome: Status: Acute (2) Suicidal thoughts: Status: Acute Assessment and Plan: 55-year-old female with past medical history of hypertension , noncompliant with medication presents to the hospital with suicidal ideation as well as alcohol withdrawal 1. EToH Withdraw Doing well with phenobarb ... No signs withdrawal Re-evaluated a.m. question transfer that time 2. Bipolar disorder with questionable suicidal ideation One-to-one sitter Care team consult once cleared from alcohol withdrawal 3. Hypertension Beta-gerardo titrate to heart rate less than 100/BP 1 20s DC amlodipine DVT prophylaxis: Lovenox Quality Stroke Does the patient have a stroke diagnosis?: No VTE Prior VTE?: No VTE Risk Level:: Medical - moderate - high VTE Device Contraindication: Treatment Not Indicated VTE Drug Contraindication: N/A - Med Ordered
[2021-01-06] MEDS: Lurasidone HCl 20 MG TABLET 60 MG PO (20:47)
[2021-01-07] VITALS: BP 128/64; PULSE 91; RESP 18; TEMP 37.1; O2SAT 98
[2021-01-07] MEDS: 0.9 % Sodium Chloride Flush 3 ML SYRINGE IVFLUSH ×2 (01:33→07:42)
[2021-01-07] MEDS: Enoxaparin Sodium 40 MG/0.4 ML SYRINGE SUBCUT (02:28)
[2021-01-07 03:30] VITALS: BP 125/54; PULSE 90; RESP 18; TEMP 37.1; O2SAT 99
[2021-01-07 05:35] LABS: MANUAL DIFF FLAG NO
[2021-01-07 05:42] LABS: Basophils Percent Auto 0.3 % (0-2); Eosinophils Absolute Auto 0.3 X10*3/uL (0.0-0.4); Hematocrit 28.3 % (37.0-47.0); Hemoglobin 9.2 g/dl (12.0-16.0); Imm Gran Abs Auto 0.25 X10*3/uL (0.00-0.03); Imm Gran Pct Auto 2.4 % (0.0-0.4); Lymphocytes Absolute Auto 2.3 X10*3/uL (1.2-4.9); Lymphocytes Percent Auto 21.9 % (20-40); Mean Corpuscular HGB Conc 32.5 g/dl (31.0-35.0); Mean Corpuscular Hemoglobin 32.2 pg (27.0-33.0); Mean Platelet Volume 9.2 fL (9.4-12.3); Monocytes Absolute Auto 0.6 X10*3/uL (0.1-1.2); Monocytes Percent Auto 5.9 % (2-11); Neutrophils Percent Auto 66.5 % (45-73); Platelet Count 190 X10*3/uL (160-400); Red Blood Count 2.86 X10*6/uL (4.20-5.50); Red Cell Distribution Width 20.5 % (11.0-16.0); White Blood Count 10.5 X10*3/uL (4.8-10.8)
[2021-01-07 06:17] LABS: Alanine Aminotransferase 27 U/L (0-31); Albumin Level 3.2 g/dL (3.5-5.0); Alkaline Phosphatase 104 U/L (39-117); Anion Gap 12 (12-20); Aspartate Amino Transferase 55 U/L (5-31); Bilirubin Total 0.8 mg/dL (0.0-1.0); Blood Urea Nitrogen 10 mg/dL (9-16); Calcium 8.2 mg/dL (8.4-10.2); Carbon Dioxide 27 mmol/L (22-29); Chloride 105 mmol/L (96-108); Creatinine Clr Calc Pharmacy 138.7; Estimated Glomerular Filt Rate > 60; Glucose Fasting 98 mg/dL (60-99); Sodium 140 mmol/L (135-145); Total Protein 5.5 g/dL (6.5-8.0)
[2021-01-07] MEDS: Amphetamine Mixed Salts 10 MG TABLET 30 MG PO ×2 (07:42→13:04)
[2021-01-07] MEDS: amLODIPine Besylate 5 MG TABLET PO (07:42)
[2021-01-07] MEDS: Thiamine HCL 100 MG TABLET PO (07:42)
[2021-01-07] MEDS: Folic Acid 1 MG TABLET PO (07:42)
[2021-01-07] MEDS: Metoprolol Tartrate 25 MG TABLET PO (07:42)
[2021-01-07] MEDS: PHENobarbitaL 30 MG TABLET PO (07:42)
[2021-01-07 08:00] VITALS: BP 175/83; PULSE 96; RESP 18; TEMP 36.4; O2SAT 98
--- NOTE | 2021-01-07 09:10 | MHC.CM.PN ---
PER HOSPITALIST PT MEDICALLY CLEARED, CM MET W/CARE TEAM WHO REPORTS PT WILL BE ADMITTED TO LATER TODAY AND ADDISON FROM CARE TEAM WILL ARRANGE TIME/TRANSFER.
--- NOTE | 2021-01-07 11:23 | PM.DS ---
DS: Providers Provider Date of Service: 01/07/21 Date of admission: 01/04/21 20:06 Primary care physician: None Physician Consults: 01/03/21 20:13 Consult to Care Team Stat Comment: Reason for consultation: si 01/03/21 22:55 BHN [Consult to Crisis] Stat Reason for consultation: behavioral dysregulation DS: Diagnosis Discharge Diagnosis (1) Alcohol withdrawal syndrome: Status: Acute (2) Suicidal thoughts: Status: Acute DS: Summary Hospital Course Hospital Course: 55-year-old female with history of bipolar disorder who presents to the hospital after being found at home intoxicated and reporting suicidal ideation.? According to report some family member had called police department to do a wellness check on patient, they found her to be intoxicated and held only drinking.? Of according to the patient is her son's 1 year anniversary and she has been feeling very depressed.? She was initially admitted for behavioral health but was found to be withdrawing from alcohol and therefore transferred to medical ED and evaluated for alcohol withdrawal.? Patient reports that she drinks heavily every day, she is complaining of feeling anxious, but denies any suicidal ideation at this time, she denies having any chest pain, no shortness of breath, no abdominal pain nausea or vomiting, no diarrhea constipation, no urinary symptoms and no lower extremity edema. Of note patient reports that she has history of hypertension but has stopped taking med medication about a year and half ago because she has been able To get in to see her doctor Vitals reviewed show a temperature of a 100.2?, heart rate of 110, blood pressure 195/84, satting 91% on room air Labs are significant for? WBC count of 8.2, hemoglobin of 9.6? which is lower than her baseline of around 15, platelet count of 157, potassium of? 3.0, Hospital course Patient admitted to telemetry with one-to-one sitter. Electrolytes normalized with fluids and repletion and she was maintained on phenobarb protocol without issue; no seizures noted. Her tachycardia was controlled with beta-gerardo. At this time she is medically suitable for transfer to Time Spent with Patient Time attestation: Total time spent providing and/or coordinating discharge services: Discharge coordination time: Greater than 30 minutes Quality: Stroke Does the patient have a stroke diagnosis?: No Physical Exam Vital Signs: Vital Signs: Last Vital Signs Temp 97.5 F 01/07/21 08:00 Pulse 96 01/07/21 08:00 Resp 18 01/07/21 08:00 BP 175/83 H 01/07/21 08:00 Pulse Ox 98 01/07/21 08:00 Body Mass Index 39.3 Const: Other: No acute distress HENMT: Other: Membranes moist oropharynx clear Resp: Other: Clear to auscultation bilaterally no rales rhonchi wheezes Cardio: Other: No S4; positive S1-S2; no S3 murmurs of gallops GI: Other: Soft nontender nondistended with normoactive bowel sounds x4 quadrants Neuro: Other: Cranial nerves 2-12 grossly intact as tested. Motor is 5/5 all extremities. Sensation is intact. Cognition is appropriate. Mild tremors bilateral upper extremities DS: Data Data Completed and Pending Labs on day of discharge: Laboratory Results - last 24 hr 01/07/21 01/07/21 05:09 05:09 WBC 10.5 RBC 2.86 L Hgb 9.2 L Hct 28.3 L MCV 99.0 H MCH 32.2 MCHC 32.5 RDW 20.5 H Plt Count 190 MPV 9.2 L Immature Gran % (Auto) 2.4 H Neut % (Auto) 66.5 Lymph % (Auto) 21.9 [place] % (Auto) 5.9 Eos % (Auto) 3.0 Baso % (Auto) 0.3 Lymph # (Auto) 2.3 [place] # (Auto) 0.6 Eos # (Auto) 0.3 Baso # (Auto) 0.0 Abs Immat Gran (auto) 0.25 H Absolute Neuts (auto) 7.0 Absolute Nucleated RBC 0.000 Nucleated RBC % (auto) 0.0 Sodium 140 Potassium 4.0 D Chloride 105 Carbon Dioxide 27 Anion Gap 12 BUN 10 Creatinine 0.59 Estim Creat Clear Calc 138.7 Estimated GFR > 60 Fasting Glucose 98 Calcium 8.2 L Total Bilirubin 0.8 AST 55 H ALT 27 Alkaline Phosphatase 104 Total Protein 5.5 L Albumin 3.2 L Discharge Plan Discharge Disposition: Xfer Psychiatric Hosp Referrals: Physician,None [Primary Care Provider] - 1 Week Discharge Medications: Continued dextroamphetamine-amphetamine 30 mg tablet 1 tab PO BID RF: 0 lorazepam 0.5 mg tablet 1 tab PO TID PRN (Reason: Anxiety) RF: 0 Latuda 60 mg tablet 1 tab PO BEDTIME RF: 0 albuterol sulfate 90 mcg/actuation HFA aerosol inhaler 1 puff inhalation Q4H PRN (Reason: wheezing) RF: 0 Discharge Orders: Discharge Order (Routine); Ordered 01/07/21 Ordered By: Loki Brito Forms: Patient Portal Discharge page Care Plan Goals: As per psych Health Concerns: Absence from alcohol Plan of Treatment: Outpatient AA or abuse treatment Assessment: Stable
== END 2021-01-07 13:36 | DRG 305 ==
LOC: HO.ED 01-04 15:53 → HO.EDOVER 01-04 20:17 → HO.S3 01-05 18:32
PROVIDERS: Emergency Medicine; Nurse Practitioner Family; Student in an Organized Health Care Education/Training Program; Admitting Provider Internal Medicine; Emergency Provider Emergency Medicine; Visit Provider Hospitalist
DX: I16.9 Hypertensive crisis, unspecified (principal); R45.851 Suicidal ideations; F10.239 Alcohol dependence with withdrawal, unspecified; F31.9 Bipolar disorder, unspecified; I10 Essential (primary) hypertension; Z20.822 Contact with and (suspected) exposure to COVID-19; F10.229 Alcohol dependence with intoxication, unspecified; Z87.891 Personal history of nicotine dependence; Z79.899 Other long term (current) drug therapy
CPT/HCPCS: 36415; 71045; 80048; 80053; 80076; 80143; 80179; 80307; 81003; 82077; 83735; 85025; 87635; 93005; 94640; 96365; 96367; 96372; 96375; 99285; 99291; J1650; J2060; J2560; J3411; J3475; Q0163

== ENCOUNTER 2021-01-07 11:17 | Inpatient (IN) | payer MEDICARE, SELFPAY ==
[2021-01-07 14:30] VITALS: BP 147/69; PULSE 105; RESP 16; TEMP 36.4; O2SAT 94
[2021-01-07 15:41] VITALS: BMI 43.8
--- NOTE | 2021-01-07 16:47 | PC.ADMIT ---
Pt admitted to unit from [place] [id number] on a conditional voluntary. PT reports a diagnosis of bipolar. PT initally presented to [facility] ED for SI and ETOH withdrawal. PT was admitted medically for ETOH withdrawal. PT reports that she was drinking 1/2 handle daily for some time PT reports that her depression has been increasing, she had been drinking more and caring for herself less, she states the final straw was the annivsary of her son's . She reports he one year ago of an overdose and they are unsure if the overdose was intentional or accidental. PT reports that she was initially suicidal but denies that she feels suicidal now. PT states she has been on medications for a long time and has been doing multiple medication changes and that while on the medical unit she was started on lithium and has so far found that medication helpful. PT is covid negative, tox screen was negative for substances with a BAL of 260 on 01/03. 15 minute safety checks initiated for safety.
[2021-01-07] MEDS: LORazepam 1 MG TABLET PO ×2 (17:50→21:48)
--- NOTE | 2021-01-07 18:42 | P.HPPS_ITS ---
HPI Chief Complaint: Alcohol withdrawal, SI [facility] Medical History Bipolar disorder Hypertension Surgical History History of Diagnostics Vital Signs (24Hr): Vital Signs - 24 hr 01/07/21 14:30 Temperature 97.5 F Pulse Rate 105 H Respiratory Rate 16 Blood Pressure 147/69 H Pulse Oximetry 94 Body Mass Index 43.8 Meds/Allergies Meds Home Medications Acetaminophen (Acetaminophen 325 Mg Tablet) 650 mg PO Q6H PRN PRN Reason: Headache/Pain Mild Scale (1-3) Al Hydroxide/Mg Hydroxide (Magnesium Hydrox/Alum Hydrox 30 Ml Oral.Susp) 30 ml PO Q6H PRN PRN Reason: Heartburn/Nausea Albuterol Sulfate (Albuterol Sulfate 90 Mcg 8 Gm Inhaler) 1 puff INHALE Q4H PRN PRN Reason: wheezing Amlodipine Besylate (Amlodipine Besylate 5 Mg Tablet) 5 mg PO DAILY [facility]; Protocol Amphetamine/Dextroamphetamine (Amphetamine Mixed Salts 10 Mg Tablet) 30 mg PO BID@0830,1330 [facility] Docusate Sodium (Docusate Sodium 100 Mg Capsule) 100 mg PO DAILY PRN PRN Reason: Constipation Hydroxyzine HCl (Hydroxyzine Hcl 25 Mg Tablet) 25 mg PO Q6H PRN PRN Reason: Anxiety Lorazepam (Lorazepam 1 Mg Tablet) 1 mg PO TID [facility] Last Admin: 01/07/21 17:50 Dose: 1 mg Documented by: Lurasidone HCl (Lurasidone Hcl 20 Mg Tablet) 60 mg PO BEDTIME [facility] Magnesium Hydroxide (Milk Of Magnesia 30 Ml Oral.Susp) 30 ml PO DAILY PRN PRN Reason: Constipation Metoprolol Tartrate (Metoprolol Tartrate 25 Mg Tablet) 25 mg PO BID [facility]; Protocol Thiamine HCl (Thiamine Hcl 100 Mg Tablet) 100 mg PO DAILY [facility] Trazodone HCl (Trazodone Hcl 50 Mg Tablet) 50 mg PO BEDTIME PRN PRN Reason: Insomnia Allergies Allergies Allergy/AdvReac Type Severity Reaction Status Date / Time No Known Allergies Allergy Unknown Unverified 11/20/19 16:06
[2021-01-07] MEDS: Lurasidone HCl 20 MG TABLET 60 MG PO (21:47)
[2021-01-07 21:48] VITALS: BP 164/74; PULSE 106
[2021-01-07] MEDS: Metoprolol Tartrate 25 MG TABLET PO (21:48)
[2021-01-07 21:49] VITALS: BP 164/74; PULSE 106; TEMP 36.8; O2SAT 98
[2021-01-08 08:03] LABS: Estimated Average Glucose 94 mg/dL; Hemoglobin A1c % 4.9 %
[2021-01-08 08:10] LABS: Cholesterol 166 mg/dL; HDL Cholesterol 43 mg/dL; LDL Cholesterol Calculated 96 mg/dl; Triglycerides 138 mg/dL
[2021-01-08 09:09] VITALS: BP 190/78; PULSE 99; TEMP 36.6
[2021-01-08 09:10] VITALS: BP 190/78; PULSE 99
[2021-01-08] MEDS: Thiamine HCL 100 MG TABLET PO (09:10)
[2021-01-08] MEDS: Metoprolol Tartrate 25 MG TABLET PO ×2 (09:10→20:40)
[2021-01-08] MEDS: Amphetamine Mixed Salts 10 MG TABLET 30 MG PO ×2 (09:10→14:41)
[2021-01-08 09:11] VITALS: BP 190/78; PULSE 99
[2021-01-08] MEDS: LORazepam 1 MG TABLET PO ×3 (09:11→20:40)
[2021-01-08] MEDS: amLODIPine Besylate 5 MG TABLET PO (09:11)
--- NOTE | 2021-01-08 17:32 | HO.PSYADMNOT ---
HPI Date of Service: 01/08/21 Chief Complaint: Alcohol withdrawal, SI Sources of Information: patient interviewed and chart reviewed HPI Medical Problems Affecting Mental Status: No Narrative: transfer from the medical floor for ongoing management of depression and suicidal ideation. Was on the medical floor from 01/03/2021 through 01/07/2021 for alcohol detox. Was originally in the ED for depression, suicidal thoughts and also intoxication. Reports the anniversary of her son's 1 year ago on 12/15/2020 was a major trigger and led to her relapsing from alcohol. Has been drinking half a handle a day. Reports he was speaking with her counselor from [facility] who was concerned and 911 was called. Main concerns around mood and suicidal statements reports things have been extremely difficult since the of her 26-year-old son and she has been getting increasingly depressed recently. Reports she has guns from many medication changes with her outpatient psychiatrist, but did not want to discuss these in detail and was irritable at times- Preferred this case discussed in detail with her primary team who could also communicate with her psychiatrist. Reports in addition to mood being down, low energy, low concentration, no motivation, sleep broken. Appetite intermittently disturbed. Reports that she does want help with her bipolar disorder and especially depression. Past Psychiatric History: Diagnosis of bipolar disorder. Irritable when attempted to explore manic episodes in the past. Reports last inpatient episode was over 20 years ago. Denies history of suicide attempts. Gets treatment through [facility]. Counselor and a prescriber through [facility]. Irritable when asked about medication trials. Medical Evaluation Reviewed: Yes [facility] Medical History (Updated 01/08/21 @ 17:38 by Kam oCrona MD) Bipolar disorder Hypertension Surgical History History of Social History: lives in a 3 family. She lives alone. Her father lives in another floor and reports that he is her main support and extremely positive. in the 1990s after 20 years. 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 Due to back issues, unable to work. Utilizes a walker at home. Has 2 sons, 26-year-old on 12/15/2020 from an overdose and unclear if this was accidental or intentional. Also has a 30-year-old son, whom she does not have much contact with. Substance History: Alcohol dependence. History of 5-6 years sobriety. Recent relapse 12/15/2020 Diagnostics Vital Signs (24Hr): Vital Signs - 24 hr 01/07/21 21:48 01/07/21 21:49 01/08/21 09:09 Temperature 98.2 F 97.9 F Pulse Rate 106 H 106 H 99 Blood Pressure 164/74 H 164/74 H 190/78 H Pulse Oximetry 98 01/08/21 09:10 01/08/21 09:11 Temperature Pulse Rate 99 99 Blood Pressure 190/78 H 190/78 H Pulse Oximetry Body Mass Index 43.8 Labs Labs: Laboratory Results - last 48 hr 01/08/21 01/08/21 07:29 07:30 Estimat Average Glucose 94 Hemoglobin A1c % 4.9 Triglycerides 138 Cholesterol 166 LDL Cholesterol, Calc 96 HDL Cholesterol 43 Meds/Allergies Meds Home Medications Acetaminophen (Acetaminophen 325 Mg Tablet) 650 mg PO Q6H PRN PRN Reason: Headache/Pain Mild Scale (1-3) Al Hydroxide/Mg Hydroxide (Magnesium Hydrox/Alum Hydrox 30 Ml Oral.Susp) 30 ml PO Q6H PRN PRN Reason: Heartburn/Nausea Albuterol Sulfate (Albuterol Sulfate 90 Mcg 8 Gm Inhaler) 1 puff INHALE Q4H PRN PRN Reason: wheezing Amlodipine Besylate (Amlodipine Besylate 5 Mg Tablet) 5 mg PO DAILY [facility]; Protocol Last Admin: 01/08/21 09:11 Dose: 5 mg Documented by: Amphetamine/Dextroamphetamine (Amphetamine Mixed Salts 10 Mg Tablet) 30 mg PO BID@0830,1330 [facility] Last Admin: 01/08/21 14:41 Dose: 30 mg Documented by: Docusate Sodium (Docusate Sodium 100 Mg Capsule) 100 mg PO DAILY PRN PRN Reason: Constipation Hydroxyzine HCl (Hydroxyzine Hcl 25 Mg Tablet) 25 mg PO Q6H PRN PRN Reason: Anxiety Lorazepam (Lorazepam 1 Mg Tablet) 1 mg PO TID [facility] Last Admin: 01/08/21 14:41 Dose: 1 mg Documented by: Lurasidone HCl (Lurasidone Hcl 20 Mg Tablet) 60 mg PO BEDTIME [facility] Last Admin: 01/07/21 21:47 Dose: 60 mg Documented by: Magnesium Hydroxide (Milk Of Magnesia 30 Ml Oral.Susp) 30 ml PO DAILY PRN PRN Reason: Constipation Metoprolol Tartrate (Metoprolol Tartrate 25 Mg Tablet) 25 mg PO BID [facility]; Protocol Last Admin: 01/08/21 09:10 Dose: 25 mg Documented by: Thiamine HCl (Thiamine Hcl 100 Mg Tablet) 100 mg PO DAILY [facility] Last Admin: 01/08/21 09:10 Dose: 100 mg Documented by: Trazodone HCl (Trazodone Hcl 50 Mg Tablet) 50 mg PO BEDTIME PRN PRN Reason: Insomnia Allergies Allergies Allergy/AdvReac Type Severity Reaction Status Date / Time No Known Allergies Allergy Unknown Unverified 11/20/19 16:06 Mental Status Exam Mental Status Exam Narrative: Utilize wheelchair. At home she uses a walker. Hospital clothing. Self-care poor. Depressed and irritable. Tearful. Denies current SI. Does endorse feeling hopeless. No HI No psychosis. Insight and judgment okay Assessment & Plan Assessment & Plan (1) Bipolar disorder: Status: Acute Code(s): F31.9 - Bipolar disorder, unspecified Assessment and Plan: experiencing current depression in the context of significant loss with her 26-year-old son 1 year anniversary on 12/15/2020. Does have irritability when attempting to discuss current medications, past medication trials and past diagnostic history to clarify manic episodes. Would not make changes to current treatment plan and patient would like primary team to discuss with her outpatient psychiatrist current medications, past medication trials and come up with an angry plan for changes and future treatment (2) Alcohol withdrawal syndrome: Status: Acute Qualifiers: Complication of substance-induced condition: uncomplicated Qualified Code(s): F10.230 - Alcohol dependence with withdrawal, uncomplicated Code(s): F10.239 - Alcohol dependence with withdrawal, unspecified Assessment and Plan: completed phenobarb detox. Reason for continued inpatient stay Substantial Risk for: harm to self
[2021-01-08] MEDS: Lurasidone HCl 20 MG TABLET 60 MG PO (20:39)
[2021-01-08 20:40] VITALS: BP 125/60; PULSE 99
[2021-01-08 20:43] VITALS: BP 125/60; PULSE 99; TEMP 36.6; O2SAT 96
[2021-01-08] MEDS: Acetaminophen 325 MG TABLET 650 MG PO (21:02)
[2021-01-09 08:00] VITALS: BP 148/67; PULSE 100; TEMP 36.8
[2021-01-09] MEDS: Thiamine HCL 100 MG TABLET PO (09:33)
[2021-01-09] MEDS: Amphetamine Mixed Salts 10 MG TABLET 30 MG PO ×2 (09:33→13:37)
[2021-01-09 09:35] VITALS: BP 148/67; PULSE 100
[2021-01-09] MEDS: LORazepam 1 MG TABLET PO ×3 (09:35→20:49)
[2021-01-09] MEDS: Metoprolol Tartrate 25 MG TABLET PO ×2 (09:35→20:48)
[2021-01-09 09:36] VITALS: BP 148/67
[2021-01-09] MEDS: amLODIPine Besylate 5 MG TABLET PO (09:36)
--- NOTE | 2021-01-09 11:42 | HO.PSYCHPN ---
Subjective Subjective Date of Service: 01/09/21 Reason For Visit: Alcohol withdrawal, SI Medical Problems Affecting Mental Status: No Interim History: Does endorse ongoing anxiety and depression. Looking forward to speaking with her primary team tomorrow and also working with her community psychiatrist so they can come up with and agreed treatment plan. Sleep has been poor. No energy today. Did say she would try and utilize a walker rather than wheelchair. Also forgot her dentures and is hopeful her father can bring them in. Medication Compliance: Yes Side effects from medications: No Attending Groups: No Review of Systems Acute medical concerns: No Review of Systems Review of Systems Low energy and feeling stiff and will try utilize walker rather than a wheelchair Diagnostics Vital Signs (24Hr): Vital Signs - 24 hr 01/08/21 20:40 01/08/21 20:43 01/09/21 08:00 Temperature 97.8 F 98.2 F Pulse Rate 99 99 100 Blood Pressure 125/60 125/60 148/67 H Pulse Oximetry 96 01/09/21 09:35 01/09/21 09:36 Temperature Pulse Rate 100 Blood Pressure 148/67 H 148/67 H Pulse Oximetry Body Mass Index 43.8 Labs Labs: Laboratory Results - last 48 hr 01/08/21 01/08/21 07:29 07:30 Estimat Average Glucose 94 Hemoglobin A1c % 4.9 Triglycerides 138 Cholesterol 166 LDL Cholesterol, Calc 96 HDL Cholesterol 43 Medications Medications Current Medications Acetaminophen (Acetaminophen 325 Mg Tablet) 650 mg PO Q6H PRN PRN Reason: Headache/Pain Mild Scale (1-3) Last Admin: 01/08/21 21:02 Dose: 650 mg Documented by: Al Hydroxide/Mg Hydroxide (Magnesium Hydrox/Alum Hydrox 30 Ml Oral.Susp) 30 ml PO Q6H PRN PRN Reason: Heartburn/Nausea Albuterol Sulfate (Albuterol Sulfate 90 Mcg 8 Gm Inhaler) 1 puff INHALE Q4H PRN PRN Reason: wheezing Amlodipine Besylate (Amlodipine Besylate 5 Mg Tablet) 5 mg PO DAILY [facility]; Protocol Last Admin: 01/09/21 09:36 Dose: 5 mg Documented by: Amphetamine/Dextroamphetamine (Amphetamine Mixed Salts 10 Mg Tablet) 30 mg PO BID@0830,1330 [facility] Last Admin: 01/09/21 09:33 Dose: 30 mg Documented by: Docusate Sodium (Docusate Sodium 100 Mg Capsule) 100 mg PO DAILY PRN PRN Reason: Constipation Hydroxyzine HCl (Hydroxyzine Hcl 25 Mg Tablet) 25 mg PO Q6H PRN PRN Reason: Anxiety Lorazepam (Lorazepam 1 Mg Tablet) 1 mg PO TID [facility] Last Admin: 01/09/21 09:35 Dose: 1 mg Documented by: Lurasidone HCl (Lurasidone Hcl 20 Mg Tablet) 60 mg PO BEDTIME [facility] Last Admin: 01/08/21 20:39 Dose: 60 mg Documented by: Magnesium Hydroxide (Milk Of Magnesia 30 Ml Oral.Susp) 30 ml PO DAILY PRN PRN Reason: Constipation Metoprolol Tartrate (Metoprolol Tartrate 25 Mg Tablet) 25 mg PO BID [facility]; Protocol Last Admin: 01/09/21 09:35 Dose: 25 mg Documented by: Thiamine HCl (Thiamine Hcl 100 Mg Tablet) 100 mg PO DAILY [facility] Last Admin: 01/09/21 09:33 Dose: 100 mg Documented by: Trazodone HCl (Trazodone Hcl 50 Mg Tablet) 50 mg PO BEDTIME PRN PRN Reason: Insomnia Allergies Allergies Allergy/AdvReac Type Severity Reaction Status Date / Time No Known Allergies Allergy Unknown Unverified 11/20/19 16:06 Assessment & Plan Assessment & Plan (1) Bipolar disorder: Status: Acute Code(s): F31.9 - Bipolar disorder, unspecified Assessment and Plan: experiencing current depression in the context of significant loss with her 26-year-old son 1 year anniversary on 12/15/2020. Does have irritability when attempting to discuss current medications, past medication trials and past diagnostic history to clarify manic episodes. Would not make changes to current treatment plan and patient would like primary team to discuss with her outpatient psychiatrist current medications, past medication trials and come up with an agreed plan for changes and future treatment (2) Alcohol withdrawal syndrome: Qualifiers: Complication of substance-induced condition: uncomplicated Qualified Code(s): F10.230 - Alcohol dependence with withdrawal, uncomplicated Status: Acute Code(s): F10.239 - Alcohol dependence with withdrawal, unspecified Assessment and Plan: completed phenobarb detox. I spent minutes with the patient and/or on the patient floor today, greater than?50% of which was spent counseling/coordinating care. Reason for contiued inpatient stay Substantial Risk for: harm to self
[2021-01-09 20:48] VITALS: BP 174/80; PULSE 109
[2021-01-09 20:59] VITALS: BP 174/80; PULSE 109; TEMP 36; O2SAT 97
[2021-01-09] MEDS: Lurasidone HCl 20 MG TABLET 60 MG PO (22:08)
[2021-01-10] MEDS: traZODone HCL 50 MG TABLET PO (01:17)
[2021-01-10] MEDS: hydrOXYzine HCL 25 MG TABLET PO (01:17)
[2021-01-10 08:34] VITALS: BP 152/82; PULSE 80
[2021-01-10] MEDS: Thiamine HCL 100 MG TABLET PO (08:34)
[2021-01-10] MEDS: Metoprolol Tartrate 25 MG TABLET PO ×2 (08:34→20:37)
[2021-01-10] MEDS: LORazepam 1 MG TABLET PO ×3 (08:34→20:37)
[2021-01-10] MEDS: Amphetamine Mixed Salts 10 MG TABLET 30 MG PO ×2 (08:34→13:31)
[2021-01-10 08:35] VITALS: BP 152/82; PULSE 80
[2021-01-10] MEDS: Acetaminophen 325 MG TABLET 650 MG PO (08:35)
[2021-01-10] MEDS: amLODIPine Besylate 5 MG TABLET PO (08:35)
[2021-01-10 09:18] LABS: Folate 3.8 ng/mL (> or = 4.0); Vitamin B12 196 pg/mL (200-900)
[2021-01-10 14:10] VITALS: BP 152/82; PULSE 80
--- NOTE | 2021-01-10 15:08 | HO.PSYCHPN ---
Subjective Subjective Date of Service: 01/10/21 Reason For Visit: Alcohol withdrawal, SI Interim History: pt found sleeping in bed mid-morning, states she did not sleep well last night and asks MD to return later. MD returns after seeing all other patients, around 11:30. pt is irritable, asking, so are you just going to ask me all the same questions everyone has asked? MD attempts to be brief and to the point in order to build rapport with pt. she c/o anxiety and depression as her most concerning symptoms. she states she has a Dx of bipolar disorder and is unable to describe any event in her Hx which would be consistent with a manic episode. she reports numerous medications trials but cannot recall the details. she reports her prescriber is tulio romero at [facility]. she reports she has been taking latuda and ativan for the past couple of months. in addition, per her report she developed a pill-rolling tremor in her right hand about 2 months ago. she feels her anxiety is the most troubling symptom. MD informed her he would contact her prescriber tulio romero for collateral information in order to inform medication management decisions. per staff, visible, watching TV. denied SI once sober but had endorsed it while intoxicated. med-compliant. c/o depression, insomnia. c/o back pain in the night, disrupted sleep. pleasant, social, eating well. Mental Status Exam Mental Status Exam Narrative: Using wheelchair. At home she uses a walker. Hospital clothing. Self-care poor. Depressed and irritable. No HI No psychosis. Insight and judgment okay Diagnostics Vital Signs (24Hr): Vital Signs - 24 hr 01/09/21 20:48 01/09/21 20:59 01/10/21 08:34 Temperature 96.8 F Pulse Rate 109 H 109 H 80 Blood Pressure 174/80 H 174/80 H 152/82 H Pulse Oximetry 97 01/10/21 08:35 01/10/21 14:10 Temperature Pulse Rate 80 80 Blood Pressure 152/82 H 152/82 H Pulse Oximetry Body Mass Index 43.8 Labs Labs: Laboratory Results - last 48 hr 01/08/21 07:30 Vitamin B12 196 L Folate 3.8 L Medications Medications Current Medications Acetaminophen (Acetaminophen 325 Mg Tablet) 650 mg PO Q6H PRN PRN Reason: Headache/Pain Mild Scale (1-3) Last Admin: 01/10/21 08:35 Dose: 650 mg Documented by: Al Hydroxide/Mg Hydroxide (Magnesium Hydrox/Alum Hydrox 30 Ml Oral.Susp) 30 ml PO Q6H PRN PRN Reason: Heartburn/Nausea Albuterol Sulfate (Albuterol Sulfate 90 Mcg 8 Gm Inhaler) 1 puff INHALE Q4H PRN PRN Reason: wheezing Amlodipine Besylate (Amlodipine Besylate 5 Mg Tablet) 5 mg PO DAILY [facility]; Protocol Last Admin: 01/10/21 08:35 Dose: 5 mg Documented by: Amphetamine/Dextroamphetamine (Amphetamine Mixed Salts 10 Mg Tablet) 30 mg PO BID@0830,1330 [facility] Last Admin: 01/10/21 13:31 Dose: 30 mg Documented by: Docusate Sodium (Docusate Sodium 100 Mg Capsule) 100 mg PO DAILY PRN PRN Reason: Constipation Hydrocortisone (Hydrocortisone 1 % Cream 28.35 Gm Tube) 1 appl TOPICAL BID [facility]; Protocol Stop: 01/25/21 14:32 Hydroxyzine HCl (Hydroxyzine Hcl 25 Mg Tablet) 25 mg PO Q6H PRN PRN Reason: Anxiety Last Admin: 01/10/21 01:17 Dose: 25 mg Documented by: Lorazepam (Lorazepam 1 Mg Tablet) 1 mg PO TID [facility] Last Admin: 01/10/21 14:51 Dose: 1 mg Documented by: Lurasidone HCl (Lurasidone Hcl 20 Mg Tablet) 60 mg PO BEDTIME [facility] Last Admin: 01/09/21 22:08 Dose: 60 mg Documented by: Magnesium Hydroxide (Milk Of Magnesia 30 Ml Oral.Susp) 30 ml PO DAILY PRN PRN Reason: Constipation Metoprolol Tartrate (Metoprolol Tartrate 25 Mg Tablet) 25 mg PO BID [facility]; Protocol Last Admin: 01/10/21 08:34 Dose: 25 mg Documented by: Thiamine HCl (Thiamine Hcl 100 Mg Tablet) 100 mg PO DAILY [facility] Last Admin: 01/10/21 08:34 Dose: 100 mg Documented by: Trazodone HCl (Trazodone Hcl 50 Mg Tablet) 50 mg PO BEDTIME PRN PRN Reason: Insomnia Last Admin: 01/10/21 01:17 Dose: 50 mg Documented by: Trazodone HCl (Trazodone Hcl 25 Mg Halftab) 75 mg PO BEDTIME [facility] Allergies Allergies Allergy/AdvReac Type Severity Reaction Status Date / Time No Known Allergies Allergy Unknown Unverified 11/20/19 16:06 Assessment & Plan Assessment & Plan (1) Bipolar disorder: Status: Acute Code(s): F31.9 - Bipolar disorder, unspecified Assessment and Plan: experiencing current depression in the context of significant loss with her 26-year-old son 1 year anniversary on 12/15/2020. Does have irritability when attempting to discuss current medications, past medication trials and past diagnostic history to clarify manic episodes. call placed to tulio romero at [facility], no call back today (2) Alcohol withdrawal syndrome: Qualifiers: Complication of substance-induced condition: uncomplicated Qualified Code(s): F10.230 - Alcohol dependence with withdrawal, uncomplicated Status: Acute Code(s): F10.239 - Alcohol dependence with withdrawal, unspecified Assessment and Plan: completed phenobarb detox. I spent minutes with the patient and/or on the patient floor today, greater than?50% of which was spent counseling/coordinating care. Reason for contiued inpatient stay Substantial Risk for: harm to self, inability to function and rapid decompensation
[2021-01-10 20:32] VITALS: TEMP 36.8; O2SAT 98
[2021-01-10 20:37] VITALS: BP 179/82; PULSE 104
[2021-01-10] MEDS: Lurasidone HCl 20 MG TABLET 60 MG PO (20:37)
[2021-01-10] MEDS: traZODone HCL 25 MG HALFTAB 75 MG PO (20:37)
[2021-01-11] VITALS (8 sets, daily range): BP systolic 136–138; BP diastolic 60–89; PULSE 90–100; RESP 16–18; TEMP 36.6; O2SAT 96
[2021-01-11] MEDS: amLODIPine Besylate 5 MG TABLET PO (09:05)
[2021-01-11] MEDS: Acetaminophen 325 MG TABLET 650 MG PO (09:05)
[2021-01-11] MEDS: Hydrocortisone 1 % Cream 28.35 GM TUBE 1 APPL TOPICAL (09:06)
[2021-01-11] MEDS: LORazepam 1 MG TABLET PO ×3 (09:06→20:14)
[2021-01-11] MEDS: Metoprolol Tartrate 25 MG TABLET PO ×2 (09:06→20:14)
[2021-01-11] MEDS: Amphetamine Mixed Salts 10 MG TABLET 30 MG PO ×2 (09:06→13:34)
[2021-01-11] MEDS: Thiamine HCL 100 MG TABLET PO (09:06)
[2021-01-11] MEDS: Benztropine Mesylate 0.5 MG TABLET PO ×2 (12:55→20:14)
[2021-01-11] MEDS: Cyanocobalamin (Vitamin B-12) 500 MCG TABLET PO (12:55)
--- NOTE | 2021-01-11 13:39 | P.PNPSI_ITS ---
Subjective Subjective Date of Service: 01/11/21 Reason For Visit: Alcohol withdrawal, SI Interim History: pt defers MD visit until latest possible in morning, c/o feeling tired and poor sleep. she is informed B12 is low and supplement will be started. c/o racing mind causing poor sleep, agrees to increase trazodone to 150 mg at bedtime. also agrees to add cogentin 0.5 mg BID for tremor. MD informs her no call back from [facility], states she goes to the [facility] office. therapist tobi. informs her MD will try again to call tulio charlene (last name as corrected by teresita ALBA). per staff, anxious, isolative. Mental Status Exam Mental Status Exam Narrative: Using wheelchair. At home she uses a walker. Hospital clothing. Self-care poor. Depressed and irritable. No HI No psychosis. Insight and judgment okay Diagnostics Vital Signs (24Hr): Vital Signs - 24 hr 01/10/21 14:10 01/10/21 20:32 01/10/21 20:37 Temperature 98.2 F Pulse Rate 80 104 H Respiratory Rate Blood Pressure 152/82 H 179/82 H Pulse Oximetry 98 01/11/21 06:00 01/11/21 09:03 01/11/21 09:05 Temperature 97.8 F Pulse Rate 90 Respiratory Rate 18 16 Blood Pressure 136/60 136/60 Pulse Oximetry 96 01/11/21 09:06 01/11/21 09:20 01/11/21 11:23 Temperature Pulse Rate 92 92 92 Respiratory Rate Blood Pressure 136/68 136/68 136/68 Pulse Oximetry Body Mass Index 43.8 Labs Labs: Laboratory Results - last 48 hr 01/08/21 07:30 Vitamin B12 196 L Folate 3.8 L Medications Medications Current Medications Acetaminophen (Acetaminophen 325 Mg Tablet) 650 mg PO Q6H PRN PRN Reason: Headache/Pain Mild Scale (1-3) Last Admin: 01/11/21 09:05 Dose: 650 mg Documented by: Al Hydroxide/Mg Hydroxide (Magnesium Hydrox/Alum Hydrox 30 Ml Oral.Susp) 30 ml PO Q6H PRN PRN Reason: Heartburn/Nausea Albuterol Sulfate (Albuterol Sulfate 90 Mcg 8 Gm Inhaler) 1 puff INHALE Q4H PRN PRN Reason: wheezing Amlodipine Besylate (Amlodipine Besylate 5 Mg Tablet) 5 mg PO DAILY [facility]; Protocol Last Admin: 01/11/21 09:05 Dose: 5 mg Documented by: Amphetamine/Dextroamphetamine (Amphetamine Mixed Salts 10 Mg Tablet) 30 mg PO BID@0830,1330 [facility] Last Admin: 01/11/21 13:34 Dose: 30 mg Documented by: Benztropine Mesylate (Benztropine Mesylate 0.5 Mg Tablet) 0.5 mg PO BID [facility] Last Admin: 01/11/21 12:55 Dose: 0.5 mg Documented by: Cyanocobalamin (Cyanocobalamin (Vitamin B-12) 500 Mcg Tablet) 500 mcg PO DAILY [facility] Last Admin: 01/11/21 12:55 Dose: 500 mcg Documented by: Docusate Sodium (Docusate Sodium 100 Mg Capsule) 100 mg PO DAILY PRN PRN Reason: Constipation Hydrocortisone (Hydrocortisone 1 % Cream 28.35 Gm Tube) 1 appl TOPICAL BID [facility]; Protocol Stop: 01/25/21 14:32 Last Admin: 01/11/21 09:06 Dose: 1 appl Documented by: Hydroxyzine HCl (Hydroxyzine Hcl 25 Mg Tablet) 25 mg PO Q6H PRN PRN Reason: Anxiety Last Admin: 01/10/21 01:17 Dose: 25 mg Documented by: Lorazepam (Lorazepam 1 Mg Tablet) 1 mg PO TID [facility] Last Admin: 01/11/21 09:06 Dose: 1 mg Documented by: Lurasidone HCl (Lurasidone Hcl 20 Mg Tablet) 60 mg PO BEDTIME [facility] Last Admin: 01/10/21 20:37 Dose: 60 mg Documented by: Magnesium Hydroxide (Milk Of Magnesia 30 Ml Oral.Susp) 30 ml PO DAILY PRN PRN Reason: Constipation Metoprolol Tartrate (Metoprolol Tartrate 25 Mg Tablet) 25 mg PO BID [facility]; Protocol Last Admin: 01/11/21 09:06 Dose: 25 mg Documented by: Thiamine HCl (Thiamine Hcl 100 Mg Tablet) 100 mg PO DAILY [facility] Last Admin: 01/11/21 09:06 Dose: 100 mg Documented by: Trazodone HCl (Trazodone Hcl 50 Mg Tablet) 50 mg PO BEDTIME PRN PRN Reason: Insomnia Last Admin: 01/10/21 01:17 Dose: 50 mg Documented by: Trazodone HCl (Trazodone Hcl 50 Mg Tablet) 150 mg PO BEDTIME [facility] Allergies Allergies Allergy/AdvReac Type Severity Reaction Status Date / Time No Known Allergies Allergy Unknown Unverified 11/20/19 16:06 Assessment & Plan Assessment & Plan (1) Bipolar disorder: Status: Acute Code(s): F31.9 - Bipolar disorder, unspecified Assessment and Plan: experiencing current depression in the context of significant loss with her 26-year-old son 1 year anniversary on 12/15/2020. Does have irritability when attempting to discuss current medications, past medication trials and past diagnostic history to clarify manic episodes. call placed to tulio chang 01/10 and 01/11 at [facility], no call back yet. 01/11: trazodone increased from 75 mg qhs to 150 mg qhs. (2) Alcohol withdrawal syndrome: Qualifiers: Complication of substance-induced condition: uncomplicated Qualified Code(s): F10.230 - Alcohol dependence with withdrawal, uncomplicated Status: Acute Code(s): F10.239 - Alcohol dependence with withdrawal, unspecified Assessment and Plan: completed phenobarb detox. I spent minutes with the patient and/or on the patient floor today, greater than?50% of which was spent counseling/coordinating care. Reason for contiued inpatient stay Substantial Risk for: harm to self, inability to function and rapid decompensation
[2021-01-11] MEDS: traZODone HCL 50 MG TABLET 150 MG PO (20:14)
[2021-01-11] MEDS: Lurasidone HCl 20 MG TABLET 60 MG PO (20:14)
[2021-01-11] MEDS: traZODone HCL 50 MG TABLET PO (22:13)
[2021-01-12 08:54] VITALS: BP 138/69; PULSE 101; RESP 18; TEMP 36.6; O2SAT 96
[2021-01-12 10:21] VITALS: BP 138/69; PULSE 101
[2021-01-12] MEDS: amLODIPine Besylate 5 MG TABLET PO (10:21)
[2021-01-12] MEDS: Amphetamine Mixed Salts 10 MG TABLET 30 MG PO ×2 (10:22→13:30)
[2021-01-12 10:23] VITALS: BP 138/69; PULSE 101
[2021-01-12] MEDS: Thiamine HCL 100 MG TABLET PO (10:23)
[2021-01-12] MEDS: Cyanocobalamin (Vitamin B-12) 500 MCG TABLET PO (10:23)
[2021-01-12] MEDS: Benztropine Mesylate 0.5 MG TABLET PO ×2 (10:23→20:19)
[2021-01-12] MEDS: Metoprolol Tartrate 25 MG TABLET PO ×2 (10:23→20:28)
[2021-01-12] MEDS: LORazepam 1 MG TABLET PO (10:23)
--- NOTE | 2021-01-12 11:47 | P.PNPSI_ITS ---
Subjective Subjective Date of Service: 01/12/21 Reason For Visit: Alcohol withdrawal, SI Interim History: collateral obtained from tulio chang. bipolar Dx unclear, has not been on a proper antidepressant recently. he has been working with her for 2 years. he DCed ativan at pharmacy after hearing about the alcohol relapse. he is supportive of starting an anti-depressant. pt found in her room late morning ordering food via kitchen staff. she seems in a better humor than recently. MD reviews his information from [place], pt agrees to trial of wellbutrin. informs pt ativan will be tapered and DCed, which she is reluctant to agree to, feeling concerned about her anxiety and that the ativan is for anxiety. she is informed she has hydroxyzine available PRN. pt also expresses poor sleep last night and agrees for trazodone to be increased to 200 mg at bedtime. per staff, pt is isolative and napping a lot ut is pleasant when up. eating well. taking meds. not attending groups. Mental Status Exam Mental Status Exam Narrative: Using wheelchair. At home she uses a walker. Hospital clothing. Self-care poor. Depressed and less irritable. No HI/SI expressed. Insight and judgment okay Diagnostics Vital Signs (24Hr): Vital Signs - 24 hr 01/11/21 20:14 01/11/21 21:22 01/12/21 08:54 Temperature 98 F 97.8 F Pulse Rate 100 93 101 H Respiratory Rate 18 Blood Pressure 136/89 138/70 138/69 Pulse Oximetry 96 01/12/21 10:21 01/12/21 10:23 Temperature Pulse Rate 101 H 101 H Respiratory Rate Blood Pressure 138/69 138/69 Pulse Oximetry Body Mass Index 43.8 Medications Medications Current Medications Acetaminophen (Acetaminophen 325 Mg Tablet) 650 mg PO Q6H PRN PRN Reason: Headache/Pain Mild Scale (1-3) Last Admin: 01/11/21 09:05 Dose: 650 mg Documented by: Al Hydroxide/Mg Hydroxide (Magnesium Hydrox/Alum Hydrox 30 Ml Oral.Susp) 30 ml PO Q6H PRN PRN Reason: Heartburn/Nausea Albuterol Sulfate (Albuterol Sulfate 90 Mcg 8 Gm Inhaler) 1 puff INHALE Q4H PRN PRN Reason: wheezing Amlodipine Besylate (Amlodipine Besylate 5 Mg Tablet) 5 mg PO DAILY [facility]; Protocol Last Admin: 01/12/21 10:21 Dose: 5 mg Documented by: Amphetamine/Dextroamphetamine (Amphetamine Mixed Salts 10 Mg Tablet) 30 mg PO BID@0830,1330 [facility] Last Admin: 01/12/21 10:22 Dose: 30 mg Documented by: Benztropine Mesylate (Benztropine Mesylate 0.5 Mg Tablet) 0.5 mg PO BID [facility] Last Admin: 01/12/21 10:23 Dose: 0.5 mg Documented by: Bupropion HCl (Bupropion Hcl Xl 150 Mg Tab.Er.24h) 150 mg PO DAILY [facility] Cyanocobalamin (Cyanocobalamin (Vitamin B-12) 500 Mcg Tablet) 500 mcg PO DAILY [facility] Last Admin: 01/12/21 10:23 Dose: 500 mcg Documented by: Docusate Sodium (Docusate Sodium 100 Mg Capsule) 100 mg PO DAILY PRN PRN Reason: Constipation Hydrocortisone (Hydrocortisone 1 % Cream 28.35 Gm Tube) 1 appl TOPICAL BID [facility]; Protocol Stop: 01/25/21 14:32 Last Admin: 01/11/21 22:13 Dose: Not Given Documented by: Hydroxyzine HCl (Hydroxyzine Hcl 25 Mg Tablet) 25 mg PO Q6H PRN PRN Reason: Anxiety Last Admin: 01/10/21 01:17 Dose: 25 mg Documented by: Lorazepam (Lorazepam 0.5 Mg Tablet) 0.5 mg PO TID [facility] Lurasidone HCl (Lurasidone Hcl 20 Mg Tablet) 60 mg PO BEDTIME [facility] Last Admin: 01/11/21 20:14 Dose: 60 mg Documented by: Magnesium Hydroxide (Milk Of Magnesia 30 Ml Oral.Susp) 30 ml PO DAILY PRN PRN Reason: Constipation Metoprolol Tartrate (Metoprolol Tartrate 25 Mg Tablet) 25 mg PO BID [facility]; Protocol Last Admin: 01/12/21 10:23 Dose: 25 mg Documented by: Thiamine HCl (Thiamine Hcl 100 Mg Tablet) 100 mg PO DAILY [facility] Last Admin: 01/12/21 10:23 Dose: 100 mg Documented by: Trazodone HCl (Trazodone Hcl 50 Mg Tablet) 50 mg PO BEDTIME PRN PRN Reason: Insomnia Last Admin: 01/11/21 22:13 Dose: 50 mg Documented by: Trazodone HCl (Trazodone Hcl 100 Mg Tablet) 200 mg PO BEDTIME [facility] Allergies Allergies Allergy/AdvReac Type Severity Reaction Status Date / Time No Known Allergies Allergy Unknown Unverified 11/20/19 16:06 Assessment & Plan Assessment & Plan (1) Bipolar disorder: Status: Acute Code(s): F31.9 - Bipolar disorder, unspecified Assessment and Plan: experiencing current depression in the context of significant loss with her 26-year-old son 1 year anniversary on 12/15/2020. Does have irritability when attempting to discuss current medications, past medication trials and past diagnostic history to clarify manic episodes. call placed to tulio chang 01/10 and 01/11 at [facility], no call back yet. 01/11: trazodone increased from 75 mg qhs to 150 mg qhs. 01/12: wellbutrin XL 150 mg daily started for depression, ativan taper initiated, trazodone increased to 200 mg QHS. (2) Alcohol withdrawal syndrome: Qualifiers: Complication of substance-induced condition: uncomplicated Qualified Code(s): F10.230 - Alcohol dependence with withdrawal, uncomplicated Status: Acute Code(s): F10.239 - Alcohol dependence with withdrawal, unspecified Assessment and Plan: completed phenobarb detox. I spent minutes with the patient and/or on the patient floor today, greater than?50% of which was spent counseling/coordinating care. Reason for contiued inpatient stay Substantial Risk for: harm to self, inability to function and rapid decompensation
[2021-01-12] MEDS: Hydrocortisone 1 % Cream 28.35 GM TUBE 1 APPL TOPICAL ×2 (13:28→20:20)
[2021-01-12] MEDS: buPROPion HCl XL 150 MG TAB.ER.24H PO (13:30)
[2021-01-12] MEDS: Acetaminophen 325 MG TABLET 650 MG PO (15:11)
[2021-01-12] MEDS: LORazepam 0.5 MG TABLET PO ×2 (15:11→20:20)
[2021-01-12 18:00] VITALS: BP 137/77; PULSE 100; RESP 18; TEMP 36.4; O2SAT 93
[2021-01-12] MEDS: traZODone HCL 100 MG TABLET 200 MG PO (20:19)
[2021-01-12] MEDS: Lurasidone HCl 20 MG TABLET 60 MG PO (20:20)
[2021-01-12 20:28] VITALS: BP 137/77; PULSE 100
[2021-01-13] MEDS: Acetaminophen 325 MG TABLET 650 MG PO ×2 (00:56→13:14)
[2021-01-13] MEDS: traZODone HCL 50 MG TABLET PO (00:56)
[2021-01-13 06:00] VITALS: BP 115/55; PULSE 81; TEMP 36.6
[2021-01-13] MEDS: Amphetamine Mixed Salts 10 MG TABLET 30 MG PO ×2 (08:45→13:14)
[2021-01-13 08:46] VITALS: BP 115/55; PULSE 81
[2021-01-13] MEDS: Thiamine HCL 100 MG TABLET PO (08:46)
[2021-01-13] MEDS: Cyanocobalamin (Vitamin B-12) 500 MCG TABLET PO (08:46)
[2021-01-13] MEDS: LORazepam 0.5 MG TABLET PO ×3 (08:46→20:26)
[2021-01-13] MEDS: Metoprolol Tartrate 25 MG TABLET PO ×2 (08:46→20:27)
[2021-01-13] MEDS: amLODIPine Besylate 5 MG TABLET PO (08:46)
[2021-01-13] MEDS: Benztropine Mesylate 0.5 MG TABLET PO ×2 (08:46→20:27)
[2021-01-13] MEDS: buPROPion HCl XL 150 MG TAB.ER.24H PO (08:46)
[2021-01-13] MEDS: Hydrocortisone 1 % Cream 28.35 GM TUBE 1 APPL TOPICAL ×2 (08:49→20:38)
--- NOTE | 2021-01-13 12:38 | HO.PSYCHPN ---
Subjective Subjective Date of Service: 01/13/21 Reason For Visit: Alcohol withdrawal, SI Subjective Notes: Conditional Voluntary Interim History: Pt in bed, minimally visible in unit. Pt reports feeling anxious, depressed, not knowing if she will be able to return home on her own. She denies SI/HI. She reports fair sleep, worried about ativan taper and effect on anxiety. Pt encouraged to attend to ADLs as she has not showered since admission. She denies VH/AH. Medication Compliance: Yes Side effects from medications: No Review of Systems Review of Systems Low energy and feeling stiff and will try utilize walker rather than a wheelchair Mental Status Exam Mental Status Exam Narrative: Appearance: casually groomed, poor hygiene in NAD Behavior:calm, cooperative psychomotor:no retardation or agitation noted Speech:clear, normal rate/rhythm/volume, spontaneous Thought process:linear Thought content:no signs of psychosis, worried about medication changes, feeling anxious, missing her son who Mood: depressed Affect: blunted SI:denies HI:denies VH/AH:none Delusions:none Insight/judgment:fair x 2. Memory/cog: alert, oriented x 3. Diagnostics Vital Signs (24Hr): Vital Signs - 24 hr 01/12/21 18:00 01/12/21 20:28 01/13/21 06:00 Temperature 97.6 F 97.8 F Pulse Rate 100 100 81 Respiratory Rate 18 Blood Pressure 137/77 137/77 115/55 L Pulse Oximetry 93 01/13/21 08:46 Temperature Pulse Rate 81 Respiratory Rate Blood Pressure 115/55 L Pulse Oximetry Body Mass Index 43.8 Medications Medications Current Medications Acetaminophen (Acetaminophen 325 Mg Tablet) 650 mg PO Q6H PRN PRN Reason: Headache/Pain Mild Scale (1-3) Last Admin: 01/13/21 00:56 Dose: 650 mg Documented by: Al Hydroxide/Mg Hydroxide (Magnesium Hydrox/Alum Hydrox 30 Ml Oral.Susp) 30 ml PO Q6H PRN PRN Reason: Heartburn/Nausea Albuterol Sulfate (Albuterol Sulfate 90 Mcg 8 Gm Inhaler) 1 puff INHALE Q4H PRN PRN Reason: wheezing Amlodipine Besylate (Amlodipine Besylate 5 Mg Tablet) 5 mg PO DAILY [facility]; Protocol Last Admin: 01/13/21 08:46 Dose: 5 mg Documented by: Amphetamine/Dextroamphetamine (Amphetamine Mixed Salts 10 Mg Tablet) 30 mg PO BID@0830,1330 [facility] Last Admin: 01/13/21 08:45 Dose: 30 mg Documented by: Benztropine Mesylate (Benztropine Mesylate 0.5 Mg Tablet) 0.5 mg PO BID [facility] Last Admin: 01/13/21 08:46 Dose: 0.5 mg Documented by: Bupropion HCl (Bupropion Hcl Xl 150 Mg Tab.Er.24h) 150 mg PO DAILY [facility] Last Admin: 01/13/21 08:46 Dose: 150 mg Documented by: Cyanocobalamin (Cyanocobalamin (Vitamin B-12) 500 Mcg Tablet) 500 mcg PO DAILY [facility] Last Admin: 01/13/21 08:46 Dose: 500 mcg Documented by: Docusate Sodium (Docusate Sodium 100 Mg Capsule) 100 mg PO DAILY PRN PRN Reason: Constipation Hydrocortisone (Hydrocortisone 1 % Cream 28.35 Gm Tube) 1 appl TOPICAL BID [facility]; Protocol Stop: 01/25/21 14:32 Last Admin: 01/13/21 08:49 Dose: 1 appl Documented by: Hydroxyzine HCl (Hydroxyzine Hcl 25 Mg Tablet) 25 mg PO Q6H PRN PRN Reason: Anxiety Last Admin: 01/10/21 01:17 Dose: 25 mg Documented by: Lorazepam (Lorazepam 0.5 Mg Tablet) 0.5 mg PO TID [facility] Last Admin: 01/13/21 08:46 Dose: 0.5 mg Documented by: Lurasidone HCl (Lurasidone Hcl 20 Mg Tablet) 60 mg PO BEDTIME [facility] Last Admin: 01/12/21 20:20 Dose: 60 mg Documented by: Magnesium Hydroxide (Milk Of Magnesia 30 Ml Oral.Susp) 30 ml PO DAILY PRN PRN Reason: Constipation Metoprolol Tartrate (Metoprolol Tartrate 25 Mg Tablet) 25 mg PO BID [facility]; Protocol Last Admin: 01/13/21 08:46 Dose: 25 mg Documented by: Thiamine HCl (Thiamine Hcl 100 Mg Tablet) 100 mg PO DAILY [facility] Last Admin: 01/13/21 08:46 Dose: 100 mg Documented by: Trazodone HCl (Trazodone Hcl 50 Mg Tablet) 50 mg PO BEDTIME PRN PRN Reason: Insomnia Last Admin: 01/13/21 00:56 Dose: 50 mg Documented by: Trazodone HCl (Trazodone Hcl 100 Mg Tablet) 200 mg PO BEDTIME [facility] Last Admin: 01/12/21 20:19 Dose: 200 mg Documented by: Allergies Allergies Allergy/AdvReac Type Severity Reaction Status Date / Time No Known Allergies Allergy Unknown Unverified 11/20/19 16:06 Assessment & Plan Assessment & Plan (1) Bipolar disorder: Status: Acute Code(s): F31.9 - Bipolar disorder, unspecified Assessment and Plan: experiencing current depression in the context of significant loss with her 26-year-old son 1 year anniversary on 12/15/2020. Does have irritability when attempting to discuss current medications, past medication trials and past diagnostic history to clarify manic episodes. Collateral info gathered from tulio chang per Dr. Luque on 01/13 01/11: trazodone increased from 75 mg qhs to 150 mg qhs. 01/12: wellbutrin XL 150 mg daily started for depression, ativan taper initiated, trazodone increased to 200 mg QHS. 01/13- continue per primary treatment team. pt reports depressed mood, anxious mood, missing son, no SI. (2) Alcohol withdrawal syndrome: Qualifiers: Complication of substance-induced condition: uncomplicated Qualified Code(s): F10.230 - Alcohol dependence with withdrawal, uncomplicated Status: Acute Code(s): F10.239 - Alcohol dependence with withdrawal, unspecified Assessment and Plan: completed phenobarb detox. I spent minutes with the patient and/or on the patient floor today, greater than?50% of which was spent counseling/coordinating care. Reason for contiued inpatient stay Substantial Risk for: inability to function
[2021-01-13 20:15] VITALS: BP 144/63; PULSE 97; TEMP 36.6; O2SAT 97
[2021-01-13] MEDS: Lurasidone HCl 20 MG TABLET 60 MG PO (20:26)
[2021-01-13] MEDS: traZODone HCL 100 MG TABLET 200 MG PO (20:26)
[2021-01-13 20:27] VITALS: BP 144/63; PULSE 97
[2021-01-14 08:30] VITALS: BP 110/57
[2021-01-14] MEDS: buPROPion HCl XL 150 MG TAB.ER.24H PO (08:30)
[2021-01-14] MEDS: Metoprolol Tartrate 25 MG TABLET PO ×2 (08:30→20:39)
[2021-01-14] MEDS: Thiamine HCL 100 MG TABLET PO (08:30)
[2021-01-14] MEDS: LORazepam 0.5 MG TABLET PO ×3 (08:30→20:39)
[2021-01-14] MEDS: Benztropine Mesylate 0.5 MG TABLET PO ×2 (08:30→20:39)
[2021-01-14] MEDS: Amphetamine Mixed Salts 10 MG TABLET 30 MG PO ×2 (08:30→13:16)
[2021-01-14] MEDS: amLODIPine Besylate 5 MG TABLET PO (08:31)
[2021-01-14] MEDS: Cyanocobalamin (Vitamin B-12) 500 MCG TABLET PO (08:31)
[2021-01-14 08:40] VITALS: BP 110/57; PULSE 85; TEMP 36.1
--- NOTE | 2021-01-14 13:50 | HO.PSYCHPN ---
Subjective Subjective Date of Service: 01/14/21 Reason For Visit: Alcohol withdrawal, SI Interim History: pt reports she is sleeping better on the 20 mg of trazodone. she remains anxious and depressed, with little energy or motivation. informs her wellbutrin being increased to 300 mg daily as of tomorrow. pt c/o poor leg strength and impaired ability to walk long distances, asks for PT consult to help with strengthening. per staff, isolative, sleeping in room. c/o insomnia but per staff observation, pt is sleeping. anx/dep 10/12. encouraging shower but pt declined yesterday. Mental Status Exam Mental Status Exam Narrative: Using wheelchair. At home she uses a walker. Hospital clothing. Self-care poor. Depressed and less irritable. No HI/SI expressed. Insight and judgment okay Diagnostics Vital Signs (24Hr): Vital Signs - 24 hr 01/13/21 20:15 01/13/21 20:27 01/14/21 08:30 Temperature 97.9 F Pulse Rate 97 97 Blood Pressure 144/63 H 144/63 H 110/57 L Pulse Oximetry 97 01/14/21 08:40 Temperature 97 F Pulse Rate 85 Blood Pressure 110/57 L Pulse Oximetry Body Mass Index 43.8 Medications Medications Current Medications Acetaminophen (Acetaminophen 325 Mg Tablet) 650 mg PO Q6H PRN PRN Reason: Headache/Pain Mild Scale (1-3) Last Admin: 01/13/21 13:14 Dose: 650 mg Documented by: Al Hydroxide/Mg Hydroxide (Magnesium Hydrox/Alum Hydrox 30 Ml Oral.Susp) 30 ml PO Q6H PRN PRN Reason: Heartburn/Nausea Albuterol Sulfate (Albuterol Sulfate 90 Mcg 8 Gm Inhaler) 1 puff INHALE Q4H PRN PRN Reason: wheezing Amlodipine Besylate (Amlodipine Besylate 5 Mg Tablet) 5 mg PO DAILY [facility]; Protocol Last Admin: 01/14/21 08:31 Dose: 5 mg Documented by: Amphetamine/Dextroamphetamine (Amphetamine Mixed Salts 10 Mg Tablet) 30 mg PO BID@0830,1330 [facility] Last Admin: 01/14/21 13:16 Dose: 30 mg Documented by: Benztropine Mesylate (Benztropine Mesylate 0.5 Mg Tablet) 0.5 mg PO BID [facility] Last Admin: 01/14/21 08:30 Dose: 0.5 mg Documented by: Bupropion HCl (Bupropion Hcl Xl 300 Mg Tab.Er.24h) 300 mg PO DAILY [facility] Cyanocobalamin (Cyanocobalamin (Vitamin B-12) 500 Mcg Tablet) 500 mcg PO DAILY [facility] Last Admin: 01/14/21 08:31 Dose: 500 mcg Documented by: Docusate Sodium (Docusate Sodium 100 Mg Capsule) 100 mg PO DAILY PRN PRN Reason: Constipation Hydrocortisone (Hydrocortisone 1 % Cream 28.35 Gm Tube) 1 appl TOPICAL BID [facility]; Protocol Stop: 01/25/21 14:32 Last Admin: 01/14/21 08:48 Dose: Not Given Documented by: Hydroxyzine HCl (Hydroxyzine Hcl 25 Mg Tablet) 25 mg PO Q6H PRN PRN Reason: Anxiety Last Admin: 01/10/21 01:17 Dose: 25 mg Documented by: Lorazepam (Lorazepam 0.5 Mg Tablet) 0.5 mg PO TID [facility] Last Admin: 01/14/21 08:30 Dose: 0.5 mg Documented by: Lurasidone HCl (Lurasidone Hcl 20 Mg Tablet) 60 mg PO BEDTIME [facility] Last Admin: 01/13/21 20:26 Dose: 60 mg Documented by: Magnesium Hydroxide (Milk Of Magnesia 30 Ml Oral.Susp) 30 ml PO DAILY PRN PRN Reason: Constipation Metoprolol Tartrate (Metoprolol Tartrate 25 Mg Tablet) 25 mg PO BID [facility]; Protocol Last Admin: 01/14/21 08:30 Dose: 25 mg Documented by: Thiamine HCl (Thiamine Hcl 100 Mg Tablet) 100 mg PO DAILY [facility] Last Admin: 01/14/21 08:30 Dose: 100 mg Documented by: Trazodone HCl (Trazodone Hcl 50 Mg Tablet) 50 mg PO BEDTIME PRN PRN Reason: Insomnia Last Admin: 01/13/21 00:56 Dose: 50 mg Documented by: Trazodone HCl (Trazodone Hcl 100 Mg Tablet) 200 mg PO BEDTIME [facility] Last Admin: 01/13/21 20:26 Dose: 200 mg Documented by: Allergies Allergies Allergy/AdvReac Type Severity Reaction Status Date / Time No Known Allergies Allergy Unknown Unverified 11/20/19 16:06 Assessment & Plan Assessment & Plan (1) Bipolar disorder: Status: Acute Code(s): F31.9 - Bipolar disorder, unspecified Assessment and Plan: experiencing current depression in the context of significant loss with her 26-year-old son 1 year anniversary on 12/15/2020. Does have irritability when attempting to discuss current medications, past medication trials and past diagnostic history to clarify manic episodes. Collateral info gathered from tulio chang per Dr. Luque on 01/13 01/11: trazodone increased from 75 mg qhs to 150 mg qhs. 01/12: wellbutrin XL 150 mg daily started for depression, ativan taper initiated, trazodone increased to 200 mg QHS. 01/13- continue per primary treatment team. pt reports depressed mood, anxious mood, missing son, no SI. 01/14 - ativan decreased to BID. 01/15 - wellbutrin increased to 300 mg daily. (2) Alcohol withdrawal syndrome: Qualifiers: Complication of substance-induced condition: uncomplicated Qualified Code(s): F10.230 - Alcohol dependence with withdrawal, uncomplicated Status: Acute Code(s): F10.239 - Alcohol dependence with withdrawal, unspecified Assessment and Plan: completed phenobarb detox. I spent minutes with the patient and/or on the patient floor today, greater than?50% of which was spent counseling/coordinating care. Reason for contiued inpatient stay Substantial Risk for: harm to self, inability to function and rapid decompensation
[2021-01-14 20:35] VITALS: BP 132/63; PULSE 90; RESP 20; TEMP 37.2; O2SAT 99
[2021-01-14] MEDS: Hydrocortisone 1 % Cream 28.35 GM TUBE 1 APPL TOPICAL (20:38)
[2021-01-14 20:39] VITALS: BP 132/63; PULSE 90
[2021-01-14] MEDS: Lurasidone HCl 20 MG TABLET 60 MG PO (20:39)
[2021-01-14] MEDS: traZODone HCL 100 MG TABLET 200 MG PO (20:39)
--- NOTE | 2021-01-15 08:06 | HO.PSYCHPN ---
Subjective Subjective Date of Service: 01/15/21 Reason For Visit: Alcohol withdrawal, SI Subjective Notes: Conditional Voluntary Interim History: Pt continues to endorse anhedonia, depressed mood, not having to look forward to. She denies suicidal or homicidal ideation but states that all she wants is to be in bed and sleep. Yesterday after much encouragement did shower. She is taking medications as prescribed, encouraged to go to groups and be more visible in the unit. No VH/AH. Review of Systems Review of Systems Low energy and feeling stiff and will try utilize walker rather than a wheelchair Mental Status Exam Mental Status Exam Narrative: Using wheelchair. At home she uses a walker. Hospital clothing. Self-care poor. Depressed and less irritable. No HI/SI expressed. Insight and judgment okay Diagnostics Vital Signs (24Hr): Vital Signs - 24 hr 01/15/21 09:49 01/15/21 09:53 01/15/21 20:25 Temperature 97.2 F 97.6 F Pulse Rate 84 84 87 Respiratory Rate 17 20 Blood Pressure 123/65 123/65 116/60 Pulse Oximetry 97 99 01/15/21 20:33 Temperature Pulse Rate 87 Respiratory Rate Blood Pressure 116/60 Pulse Oximetry Body Mass Index 43.8 Medications Medications Current Medications Acetaminophen (Acetaminophen 325 Mg Tablet) 650 mg PO Q6H PRN PRN Reason: Headache/Pain Mild Scale (1-3) Last Admin: 01/13/21 13:14 Dose: 650 mg Documented by: Al Hydroxide/Mg Hydroxide (Magnesium Hydrox/Alum Hydrox 30 Ml Oral.Susp) 30 ml PO Q6H PRN PRN Reason: Heartburn/Nausea Albuterol Sulfate (Albuterol Sulfate 90 Mcg 8 Gm Inhaler) 1 puff INHALE Q4H PRN PRN Reason: wheezing Amlodipine Besylate (Amlodipine Besylate 5 Mg Tablet) 5 mg PO DAILY [facility]; Protocol Last Admin: 01/15/21 09:50 Dose: 5 mg Documented by: Amphetamine/Dextroamphetamine (Amphetamine Mixed Salts 10 Mg Tablet) 30 mg PO BID@0830,1330 [facility] Last Admin: 01/15/21 13:38 Dose: 30 mg Documented by: Benztropine Mesylate (Benztropine Mesylate 0.5 Mg Tablet) 0.5 mg PO BID [facility] Last Admin: 01/15/21 20:33 Dose: 0.5 mg Documented by: Bupropion HCl (Bupropion Hcl Xl 300 Mg Tab.Er.24h) 300 mg PO DAILY [facility] Last Admin: 01/15/21 09:49 Dose: 300 mg Documented by: Cyanocobalamin (Cyanocobalamin (Vitamin B-12) 500 Mcg Tablet) 500 mcg PO DAILY [facility] Last Admin: 01/15/21 09:50 Dose: 500 mcg Documented by: Docusate Sodium (Docusate Sodium 100 Mg Capsule) 100 mg PO DAILY PRN PRN Reason: Constipation Hydrocortisone (Hydrocortisone 1 % Cream 28.35 Gm Tube) 1 appl TOPICAL BID [facility]; Protocol Stop: 01/25/21 14:32 Last Admin: 01/15/21 22:17 Dose: Not Given Documented by: Hydroxyzine HCl (Hydroxyzine Hcl 25 Mg Tablet) 25 mg PO Q6H PRN PRN Reason: Anxiety Last Admin: 01/10/21 01:17 Dose: 25 mg Documented by: Lorazepam (Lorazepam 0.5 Mg Tablet) 0.5 mg PO BID [facility] Last Admin: 01/15/21 20:33 Dose: 0.5 mg Documented by: Lurasidone HCl (Lurasidone Hcl 20 Mg Tablet) 60 mg PO BEDTIME [facility] Last Admin: 01/15/21 20:32 Dose: 60 mg Documented by: Magnesium Hydroxide (Milk Of Magnesia 30 Ml Oral.Susp) 30 ml PO DAILY PRN PRN Reason: Constipation Metoprolol Tartrate (Metoprolol Tartrate 25 Mg Tablet) 25 mg PO BID [facility]; Protocol Last Admin: 01/15/21 20:33 Dose: 25 mg Documented by: Thiamine HCl (Thiamine Hcl 100 Mg Tablet) 100 mg PO DAILY [facility] Last Admin: 01/15/21 09:49 Dose: 100 mg Documented by: Trazodone HCl (Trazodone Hcl 50 Mg Tablet) 50 mg PO BEDTIME PRN PRN Reason: Insomnia Last Admin: 01/13/21 00:56 Dose: 50 mg Documented by: Trazodone HCl (Trazodone Hcl 100 Mg Tablet) 200 mg PO BEDTIME [facility] Last Admin: 01/15/21 20:32 Dose: 200 mg Documented by: Allergies Allergies Allergy/AdvReac Type Severity Reaction Status Date / Time No Known Allergies Allergy Unknown Unverified 11/20/19 16:06 Assessment & Plan Assessment & Plan (1) Bipolar disorder: Status: Acute Code(s): F31.9 - Bipolar disorder, unspecified Assessment and Plan: experiencing current depression in the context of significant loss with her 26-year-old son 1 year anniversary on 12/15/2020. Does have irritability when attempting to discuss current medications, past medication trials and past diagnostic history to clarify manic episodes. Collateral info gathered from tulio chang per Dr. Luque on 01/13 01/11: trazodone increased from 75 mg qhs to 150 mg qhs. 01/12: wellbutrin XL 150 mg daily started for depression, ativan taper initiated, trazodone increased to 200 mg QHS. 01/13- continue per primary treatment team. pt reports depressed mood, anxious mood, missing son, no SI. 01/14 - ativan decreased to BID. 01/15 - wellbutrin increased to 300 mg daily. 01/15- continue medications per primary tx team (2) Alcohol withdrawal syndrome: Qualifiers: Complication of substance-induced condition: uncomplicated Qualified Code(s): F10.230 - Alcohol dependence with withdrawal, uncomplicated Status: Resolved Code(s): F10.239 - Alcohol dependence with withdrawal, unspecified Assessment and Plan: completed phenobarb detox. I spent minutes with the patient and/or on the patient floor today, greater than?50% of which was spent counseling/coordinating care. Reason for contiued inpatient stay Substantial Risk for: inability to function
[2021-01-15 09:49] VITALS: BP 123/65; PULSE 84
[2021-01-15] MEDS: Thiamine HCL 100 MG TABLET PO (09:49)
[2021-01-15] MEDS: buPROPion HCl XL 300 MG TAB.ER.24H PO (09:49)
[2021-01-15] MEDS: Amphetamine Mixed Salts 10 MG TABLET 30 MG PO ×2 (09:49→13:38)
[2021-01-15] MEDS: Metoprolol Tartrate 25 MG TABLET PO ×2 (09:49→20:33)
[2021-01-15] MEDS: LORazepam 0.5 MG TABLET PO ×2 (09:49→20:33)
[2021-01-15] MEDS: amLODIPine Besylate 5 MG TABLET PO (09:50)
[2021-01-15] MEDS: Cyanocobalamin (Vitamin B-12) 500 MCG TABLET PO (09:50)
[2021-01-15] MEDS: Benztropine Mesylate 0.5 MG TABLET PO ×2 (09:50→20:33)
[2021-01-15 09:53] VITALS: BP 123/65; PULSE 84; RESP 17; TEMP 36.2; O2SAT 97
[2021-01-15 20:25] VITALS: BP 116/60; PULSE 87; RESP 20; TEMP 36.4; O2SAT 99
[2021-01-15] MEDS: Lurasidone HCl 20 MG TABLET 60 MG PO (20:32)
[2021-01-15] MEDS: traZODone HCL 100 MG TABLET 200 MG PO (20:32)
[2021-01-15 20:33] VITALS: BP 116/60; PULSE 87
[2021-01-16 09:19] VITALS: BP 118/60; PULSE 82; RESP 17; TEMP 36.8; O2SAT 97
[2021-01-16 09:23] VITALS: BP 118/60; PULSE 82
[2021-01-16] MEDS: Thiamine HCL 100 MG TABLET PO (09:23)
[2021-01-16] MEDS: Benztropine Mesylate 0.5 MG TABLET PO ×2 (09:23→20:41)
[2021-01-16] MEDS: Metoprolol Tartrate 25 MG TABLET PO ×2 (09:23→20:41)
[2021-01-16] MEDS: LORazepam 0.5 MG TABLET PO ×2 (09:23→20:40)
[2021-01-16] MEDS: Amphetamine Mixed Salts 10 MG TABLET 30 MG PO ×2 (09:23→13:37)
[2021-01-16] MEDS: Cyanocobalamin (Vitamin B-12) 500 MCG TABLET PO (09:23)
[2021-01-16] MEDS: amLODIPine Besylate 5 MG TABLET PO (09:23)
[2021-01-16] MEDS: buPROPion HCl XL 300 MG TAB.ER.24H PO (09:23)
--- NOTE | 2021-01-16 18:50 | P.PNPSI_ITS ---
Subjective Subjective Date of Service: 01/16/21 Reason For Visit: Alcohol withdrawal, SI Interim History: pt reports her mood is improved due to being around people and socializing. continues to have difficulty staying asleep after 3 a.m. agrees to increase trazodone to 250 mg tonight. per staff, isolative, pleasant. tearful at times. appears to be sleeping per staff observations but pt reports she does not sleep consistently after 0300. Mental Status Exam Mental Status Exam Narrative: Using wheelchair. At home she uses a walker. Hospital clothing. Self-care poor. Depressed and less irritable. No HI/SI expressed. Insight and judgment okay Diagnostics Vital Signs (24Hr): Vital Signs - 24 hr 01/15/21 20:25 01/15/21 20:33 01/16/21 09:19 Temperature 97.6 F 98.2 F Pulse Rate 87 87 82 Respiratory Rate 20 17 Blood Pressure 116/60 116/60 118/60 Pulse Oximetry 99 97 01/16/21 09:23 Temperature Pulse Rate 82 Respiratory Rate Blood Pressure 118/60 Pulse Oximetry Body Mass Index 43.8 Medications Medications Current Medications Acetaminophen (Acetaminophen 325 Mg Tablet) 650 mg PO Q6H PRN PRN Reason: Headache/Pain Mild Scale (1-3) Last Admin: 01/13/21 13:14 Dose: 650 mg Documented by: Al Hydroxide/Mg Hydroxide (Magnesium Hydrox/Alum Hydrox 30 Ml Oral.Susp) 30 ml PO Q6H PRN PRN Reason: Heartburn/Nausea Albuterol Sulfate (Albuterol Sulfate 90 Mcg 8 Gm Inhaler) 1 puff INHALE Q4H PRN PRN Reason: wheezing Amlodipine Besylate (Amlodipine Besylate 5 Mg Tablet) 5 mg PO DAILY [facility]; Protocol Last Admin: 01/16/21 09:23 Dose: 5 mg Documented by: Amphetamine/Dextroamphetamine (Amphetamine Mixed Salts 10 Mg Tablet) 30 mg PO BID@0830,1330 [facility] Last Admin: 01/16/21 13:37 Dose: 30 mg Documented by: Benztropine Mesylate (Benztropine Mesylate 0.5 Mg Tablet) 0.5 mg PO BID [facility] Last Admin: 01/16/21 09:23 Dose: 0.5 mg Documented by: Bupropion HCl (Bupropion Hcl Xl 300 Mg Tab.Er.24h) 300 mg PO DAILY [facility] Last Admin: 01/16/21 09:23 Dose: 300 mg Documented by: Cyanocobalamin (Cyanocobalamin (Vitamin B-12) 500 Mcg Tablet) 500 mcg PO DAILY [facility] Last Admin: 01/16/21 09:23 Dose: 500 mcg Documented by: Docusate Sodium (Docusate Sodium 100 Mg Capsule) 100 mg PO DAILY PRN PRN Reason: Constipation Hydrocortisone (Hydrocortisone 1 % Cream 28.35 Gm Tube) 1 appl TOPICAL BID [facility]; Protocol Stop: 01/25/21 14:32 Last Admin: 01/16/21 12:16 Dose: Not Given Documented by: Hydroxyzine HCl (Hydroxyzine Hcl 25 Mg Tablet) 25 mg PO Q6H PRN PRN Reason: Anxiety Last Admin: 01/10/21 01:17 Dose: 25 mg Documented by: Lorazepam (Lorazepam 0.5 Mg Tablet) 0.5 mg PO BID [facility] Last Admin: 01/16/21 09:23 Dose: 0.5 mg Documented by: Lurasidone HCl (Lurasidone Hcl 20 Mg Tablet) 60 mg PO BEDTIME [facility] Last Admin: 01/15/21 20:32 Dose: 60 mg Documented by: Magnesium Hydroxide (Milk Of Magnesia 30 Ml Oral.Susp) 30 ml PO DAILY PRN PRN Reason: Constipation Metoprolol Tartrate (Metoprolol Tartrate 25 Mg Tablet) 25 mg PO BID [facility]; Protocol Last Admin: 01/16/21 09:23 Dose: 25 mg Documented by: Thiamine HCl (Thiamine Hcl 100 Mg Tablet) 100 mg PO DAILY [facility] Last Admin: 01/16/21 09:23 Dose: 100 mg Documented by: Trazodone HCl (Trazodone Hcl 50 Mg Tablet) 250 mg PO BEDTIME [facility] Allergies Allergies Allergy/AdvReac Type Severity Reaction Status Date / Time No Known Allergies Allergy Unknown Unverified 11/20/19 16:06 Assessment & Plan Assessment & Plan (1) Bipolar disorder: Status: Acute Code(s): F31.9 - Bipolar disorder, unspecified Assessment and Plan: experiencing current depression in the context of significant loss with her 26-year-old son 1 year anniversary on 12/15/2020. Does have irritability when attempting to discuss current medications, past medication trials and past diagn ostic history to clarify manic episodes. Collateral info gathered from tulio Luque on 01/13 01/11: trazodone increased from 75 mg qhs to 150 mg qhs. 01/12: wellbutrin XL 150 mg daily started for depression, ativan taper initiated, trazodone increased to 200 mg QHS. 01/13- continue per primary treatment team. pt reports depressed mood, anxious mood, missing son, no SI. 01/14 - ativan decreased to BID. 01/15 - wellbutrin increased to 300 mg daily. (2) Alcohol withdrawal syndrome: Qualifiers: Complication of substance-induced condition: uncomplicated Qualified Code(s): F10.230 - Alcohol dependence with withdrawal, uncomplicated Status: Resolved Code(s): F10.239 - Alcohol dependence with withdrawal, unspecified Assessment and Plan: completed phenobarb detox. I spent minutes with the patient and/or on the patient floor today, greater than?50% of which was spent counseling/coordinating care. Reason for contiued inpatient stay Substantial Risk for: harm to self, inability to function and rapid decomp ensation
[2021-01-16 20:30] VITALS: BP 114/65; PULSE 87; RESP 18; TEMP 36.8; O2SAT 97
[2021-01-16] MEDS: traZODone HCL 50 MG TABLET 250 MG PO (20:41)
[2021-01-16] MEDS: Lurasidone HCl 20 MG TABLET 60 MG PO (20:42)
[2021-01-16] MEDS: Hydrocortisone 1 % Cream 28.35 GM TUBE 1 APPL TOPICAL (20:43)
[2021-01-17] MEDS: buPROPion HCl XL 300 MG TAB.ER.24H PO (08:09)
[2021-01-17] MEDS: LORazepam 0.5 MG TABLET PO ×2 (08:09→20:06)
[2021-01-17] MEDS: Cyanocobalamin (Vitamin B-12) 500 MCG TABLET PO (08:09)
[2021-01-17 08:10] VITALS: BP 124/60; PULSE 80
[2021-01-17] MEDS: Metoprolol Tartrate 25 MG TABLET PO (08:10)
[2021-01-17] MEDS: amLODIPine Besylate 5 MG TABLET PO (08:10)
[2021-01-17] MEDS: Amphetamine Mixed Salts 10 MG TABLET 30 MG PO ×2 (08:10→12:45)
[2021-01-17] MEDS: Thiamine HCL 100 MG TABLET PO (08:10)
[2021-01-17] MEDS: Benztropine Mesylate 0.5 MG TABLET PO ×2 (08:10→20:05)
[2021-01-17 08:15] VITALS: BP 124/60; PULSE 80; TEMP 36.6
--- NOTE | 2021-01-17 12:42 | HO.PSYCHPN ---
Subjective Subjective Date of Service: 01/17/21 Reason For Visit: Alcohol withdrawal, SI Interim History: pt appears in better humor than earlier on in her stay. mood remains improved, felt she got an adequate amount of sleep last night. feels her medications are good where they are for the moment, very much endorses attending [facility] after discharge. she had just attended group when MD met with her. per staff, beginning to process of her son last year. sad, isolative. slept about 5 hours last night. got the mat out of her hair, took shower over the weekend. Mental Status Exam Mental Status Exam Narrative: Using wheelchair. At home she uses a walker. Hospital clothing. Self-care improving. Depressed and not irritable. No HI/SI expressed. Insight and judgment okay Diagnostics Vital Signs (24Hr): Vital Signs - 24 hr 01/16/21 20:30 01/17/21 08:10 01/17/21 08:15 Temperature 98.3 F 97.9 F Pulse Rate 87 80 80 Respiratory Rate 18 Blood Pressure 114/65 124/60 124/60 Pulse Oximetry 97 Body Mass Index 43.8 Medications Medications Current Medications Acetaminophen (Acetaminophen 325 Mg Tablet) 650 mg PO Q6H PRN PRN Reason: Headache/Pain Mild Scale (1-3) Last Admin: 01/13/21 13:14 Dose: 650 mg Documented by: Al Hydroxide/Mg Hydroxide (Magnesium Hydrox/Alum Hydrox 30 Ml Oral.Susp) 30 ml PO Q6H PRN PRN Reason: Heartburn/Nausea Albuterol Sulfate (Albuterol Sulfate 90 Mcg 8 Gm Inhaler) 1 puff INHALE Q4H PRN PRN Reason: wheezing Amlodipine Besylate (Amlodipine Besylate 5 Mg Tablet) 5 mg PO DAILY [facility]; Protocol Last Admin: 01/17/21 08:10 Dose: 5 mg Documented by: Amphetamine/Dextroamphetamine (Amphetamine Mixed Salts 10 Mg Tablet) 30 mg PO BID@0830,1330 [facility] Last Admin: 01/17/21 08:10 Dose: 30 mg Documented by: Benztropine Mesylate (Benztropine Mesylate 0.5 Mg Tablet) 0.5 mg PO BID [facility] Last Admin: 01/17/21 08:10 Dose: 0.5 mg Documented by: Bupropion HCl (Bupropion Hcl Xl 300 Mg Tab.Er.24h) 300 mg PO DAILY [facility] Last Admin: 01/17/21 08:09 Dose: 300 mg Documented by: Cyanocobalamin (Cyanocobalamin (Vitamin B-12) 500 Mcg Tablet) 500 mcg PO DAILY [facility] Last Admin: 01/17/21 08:09 Dose: 500 mcg Documented by: Docusate Sodium (Docusate Sodium 100 Mg Capsule) 100 mg PO DAILY PRN PRN Reason: Constipation Hydrocortisone (Hydrocortisone 1 % Cream 28.35 Gm Tube) 1 appl TOPICAL BID [facility]; Protocol Stop: 01/25/21 14:32 Last Admin: 01/17/21 08:23 Dose: Not Given Documented by: Hydroxyzine HCl (Hydroxyzine Hcl 25 Mg Tablet) 25 mg PO Q6H PRN PRN Reason: Anxiety Last Admin: 01/10/21 01:17 Dose: 25 mg Documented by: Lorazepam (Lorazepam 0.5 Mg Tablet) 0.5 mg PO BID [facility] Last Admin: 01/17/21 08:09 Dose: 0.5 mg Documented by: Lurasidone HCl (Lurasidone Hcl 20 Mg Tablet) 60 mg PO BEDTIME [facility] Last Admin: 01/16/21 20:42 Dose: 60 mg Documented by: Magnesium Hydroxide (Milk Of Magnesia 30 Ml Oral.Susp) 30 ml PO DAILY PRN PRN Reason: Constipation Metoprolol Tartrate (Metoprolol Tartrate 25 Mg Tablet) 25 mg PO BID [facility]; Protocol Last Admin: 01/17/21 08:10 Dose: 25 mg Documented by: Thiamine HCl (Thiamine Hcl 100 Mg Tablet) 100 mg PO DAILY [facility] Last Admin: 01/17/21 08:10 Dose: 100 mg Documented by: Trazodone HCl (Trazodone Hcl 50 Mg Tablet) 250 mg PO BEDTIME [facility] Last Admin: 01/16/21 20:41 Dose: 250 mg Documented by: Allergies Allergies Allergy/AdvReac Type Severity Reaction Status Date / Time No Known Allergies Allergy Unknown Unverified 11/20/19 16:06 Assessment & Plan Assessment & Plan (1) Bipolar disorder: Status: Acute Code(s): F31.9 - Bipolar disorder, unspecified Assessment and Plan: experiencing current depression in the context of significant loss with her 26-year-old son 1 year anniversary on 12/15/2020. Does have irritability when attempting to discuss current medications, past medication trials and past diagnostic history to clarify manic episodes. Collateral info gathered from tulio chang per Dr. Luque on 01/13 01/11: trazodone increased from 75 mg qhs to 150 mg qhs. 01/12: wellbutrin XL 150 mg daily started for depression, ativan taper initiated, trazodone increased to 200 mg QHS. 01/13- continue per primary treatment team. pt reports depressed mood, anxious mood, missing son, no SI. 01/14 - ativan decreased to BID. 01/15 - wellbutrin increased to 300 mg daily. 01/16: trazodone increased to 250 mg QHS. 01/17: mood remains improved, sleep better. declines further med changes. interested in [facility]. (2) Alcohol withdrawal syndrome: Qualifiers: Complication of substance-induced condition: uncomplicated Qualified Code(s): F10.230 - Alcohol dependence with withdrawal, uncomplicated Status: Resolved Code(s): F10.239 - Alcohol dependence with withdrawal, unspecified Assessment and Plan: completed phenobarb detox. I spent minutes with the patient and/or on the patient floor today, greater than?50% of which was spent counseling/coordinating care. Reason for contiued inpatient stay Substantial Risk for: harm to self, inability to function and rapid decompensation
[2021-01-17] MEDS: Acetaminophen 325 MG TABLET 650 MG PO (12:45)
[2021-01-17 20:02] VITALS: BP 111/56; PULSE 82; RESP 18; TEMP 36.6; O2SAT 98
[2021-01-17] MEDS: traZODone HCL 50 MG TABLET 250 MG PO (20:05)
[2021-01-17] MEDS: Lurasidone HCl 20 MG TABLET 60 MG PO (20:06)
[2021-01-17 20:10] VITALS: BP 111/56; PULSE 82
[2021-01-18 09:17] VITALS: BP 131/63; PULSE 91; RESP 17; TEMP 36.9; O2SAT 91
[2021-01-18] MEDS: Amphetamine Mixed Salts 10 MG TABLET 30 MG PO ×2 (09:17→13:35)
[2021-01-18 09:18] VITALS: BP 131/63; PULSE 91
[2021-01-18] MEDS: Cyanocobalamin (Vitamin B-12) 500 MCG TABLET PO (09:18)
[2021-01-18] MEDS: Benztropine Mesylate 0.5 MG TABLET PO ×2 (09:18→20:36)
[2021-01-18] MEDS: buPROPion HCl XL 300 MG TAB.ER.24H PO (09:18)
[2021-01-18] MEDS: Metoprolol Tartrate 25 MG TABLET PO ×2 (09:18→20:38)
[2021-01-18 09:19] VITALS: BP 131/63; PULSE 91
[2021-01-18] MEDS: LORazepam 0.5 MG TABLET PO (09:19)
[2021-01-18] MEDS: amLODIPine Besylate 5 MG TABLET PO (09:19)
[2021-01-18] MEDS: Thiamine HCL 100 MG TABLET PO (09:19)
--- NOTE | 2021-01-18 13:30 | P.PNPSI_ITS ---
Subjective Subjective Date of Service: 01/18/21 Reason For Visit: Alcohol withdrawal, SI Interim History: pt seen in her room, awake lying in bed. reports feeling tired this morning, didn't sleep well last night. agreeable to start remeron 15 mg QHS in addition to the trazodone 250 mg she is currently taking. also informs her that the ativan will be stopped entirely today as well. awaiting word about [facility]. per staff, being encouraged by staff counselor to use walker to ambulate. staff asking for PT consult to help with ambulation up stairs, as pt must walk up stairs to get to her second floor apartment. Mental Status Exam Mental Status Exam Narrative: Using wheelchair. At home she uses a walker. Hospital clothing. Self-care improving. Depressed and not irritable. No HI/SI expressed. Insight and judgment okay Diagnostics Vital Signs (24Hr): Vital Signs - 24 hr 01/17/21 20:02 01/17/21 20:10 01/18/21 09:17 Temperature 98 F 98.4 F Pulse Rate 82 82 91 Respiratory Rate 18 17 Blood Pressure 111/56 L 111/56 L 131/63 Pulse Oximetry 98 91 L 01/18/21 09:18 01/18/21 09:19 Temperature Pulse Rate 91 91 Respiratory Rate Blood Pressure 131/63 131/63 Pulse Oximetry Body Mass Index 43.8 Medications Medications Current Medications Acetaminophen (Acetaminophen 325 Mg Tablet) 650 mg PO Q6H PRN PRN Reason: Headache/Pain Mild Scale (1-3) Last Admin: 01/17/21 12:45 Dose: 650 mg Documented by: Al Hydroxide/Mg Hydroxide (Magnesium Hydrox/Alum Hydrox 30 Ml Oral.Susp) 30 ml PO Q6H PRN PRN Reason: Heartburn/Nausea Albuterol Sulfate (Albuterol Sulfate 90 Mcg 8 Gm Inhaler) 1 puff INHALE Q4H PRN PRN Reason: wheezing Amlodipine Besylate (Amlodipine Besylate 5 Mg Tablet) 5 mg PO DAILY [facility]; Protocol Last Admin: 01/18/21 09:19 Dose: 5 mg Documented by: Amphetamine/Dextroamphetamine (Amphetamine Mixed Salts 10 Mg Tablet) 30 mg PO BID@0830,1330 [facility] Last Admin: 01/18/21 09:17 Dose: 30 mg Documented by: Benztropine Mesylate (Benztropine Mesylate 0.5 Mg Tablet) 0.5 mg PO BID [facility] Last Admin: 01/18/21 09:18 Dose: 0.5 mg Documented by: Bupropion HCl (Bupropion Hcl Xl 300 Mg Tab.Er.24h) 300 mg PO DAILY [facility] Last Admin: 01/18/21 09:18 Dose: 300 mg Documented by: Cyanocobalamin (Cyanocobalamin (Vitamin B-12) 500 Mcg Tablet) 500 mcg PO DAILY [facility] Last Admin: 01/18/21 09:18 Dose: 500 mcg Documented by: Docusate Sodium (Docusate Sodium 100 Mg Capsule) 100 mg PO DAILY PRN PRN Reason: Constipation Hydrocortisone (Hydrocortisone 1 % Cream 28.35 Gm Tube) 1 appl TOPICAL BID [facility]; Protocol Stop: 01/25/21 14:32 Last Admin: 01/18/21 11:22 Dose: Not Given Documented by: Hydroxyzine HCl (Hydroxyzine Hcl 25 Mg Tablet) 25 mg PO Q6H PRN PRN Reason: Anxiety Last Admin: 01/10/21 01:17 Dose: 25 mg Documented by: Lurasidone HCl (Lurasidone Hcl 20 Mg Tablet) 60 mg PO BEDTIME [facility] Last Admin: 01/17/21 20:06 Dose: 60 mg Documented by: Magnesium Hydroxide (Milk Of Magnesia 30 Ml Oral.Susp) 30 ml PO DAILY PRN PRN Reason: Constipation Metoprolol Tartrate (Metoprolol Tartrate 25 Mg Tablet) 25 mg PO BID [facility]; Protocol Last Admin: 01/18/21 09:18 Dose: 25 mg Documented by: Mirtazapine (Mirtazapine 15 Mg Tablet) 15 mg PO BEDTIME [facility] Thiamine HCl (Thiamine Hcl 100 Mg Tablet) 100 mg PO DAILY [facility] Last Admin: 01/18/21 09:19 Dose: 100 mg Documented by: Trazodone HCl (Trazodone Hcl 50 Mg Tablet) 250 mg PO BEDTIME [facility] Last Admin: 01/17/21 20:05 Dose: 250 mg Documented by: Allergies Allergies Allergy/AdvReac Type Severity Reaction Status Date / Time No Known Allergies Allergy Unknown Unverified 11/20/19 16:06 Assessment & Plan Assessment & Plan (1) Bipolar disorder: Status: Acute Code(s): F31.9 - Bipolar disorder, unspecified Assessment and Plan: experiencing current depression in the context of significant loss with her 26-year-old son 1 year anniversary on 12/15/2020. Does have irritability when attempting to discuss current medications, past medication trials and past diagnostic history to clarify manic episodes. Collateral info gathered from tulio chang per Dr. Luque on 01/13 01/11: trazodone increased from 75 mg qhs to 150 mg qhs. 01/12: wellbutrin XL 150 mg daily started for depression, ativan taper initiated, trazodone increased to 200 mg QHS. 01/13- continue per primary treatment team. pt reports depressed mood, anxious mood, missing son, no SI. 01/14 - ativan decreased to BID. 01/15 - wellbutrin increased to 300 mg daily. 01/16: trazodone increased to 250 mg QHS. 01/17: mood remains improved, sleep better. declines further med changes. interested in [facility]. (2) Alcohol withdrawal syndrome: Qualifiers: Complication of substance-induced condition: uncomplicated Qualified Code(s): F10.230 - Alcohol dependence with withdrawal, uncomplicated Status: Resolved Code(s): F10.239 - Alcohol dependence with withdrawal, unspecified Assessment and Plan: completed phenobarb detox. I spent minutes with the patient and/or on the patient floor today, greater than?50% of which was spent counseling/coordinating care. Reason for contiued inpatient stay Substantial Risk for: harm to self, inability to function and rapid decompensation
[2021-01-18 18:00] VITALS: BP 134/68; PULSE 92; TEMP 36.8; O2SAT 97
[2021-01-18] MEDS: Lurasidone HCl 20 MG TABLET 60 MG PO (20:36)
[2021-01-18] MEDS: Acetaminophen 325 MG TABLET 650 MG PO (20:37)
[2021-01-18 20:38] VITALS: BP 134/68; PULSE 92
[2021-01-18] MEDS: traZODone HCL 50 MG TABLET 250 MG PO (20:38)
[2021-01-18] MEDS: Mirtazapine 15 MG TABLET PO (20:38)
[2021-01-18] MEDS: hydrOXYzine HCL 25 MG TABLET PO (23:45)
--- NOTE | 2021-01-19 02:06 | PC.NURSE ---
REPORTED BY PC THAT PATIENT WAS FOUND IN HER ROOM ON HER KNEES BETWEEN HER W/C AND HER BED. INCIDENT NOT WITNESSED. 2 PC'S ASSISTED PT TO HER FEET, INFORMED RN. ASSESSMENT DONE. DISPLAYED ABILITY TO PIVOT FROM W/C TO TOILET AND VISE VERSA WITHOUT ASSIST AND THEN AGAIN TO BED. DR. JOHNSON NOTIFIED. NURSING OPERATIONS CONSULTANT NOTIFIED. NO INJURY NOTED AT THIS TIME. FALL HAPPENED 01/18/21 AT 2330.
[2021-01-19 09:40] VITALS: BP 137/63; PULSE 81; RESP 18; TEMP 36.9; O2SAT 95
[2021-01-19] MEDS: Amphetamine Mixed Salts 10 MG TABLET 30 MG PO ×2 (09:41→13:32)
[2021-01-19] MEDS: Benztropine Mesylate 0.5 MG TABLET PO ×2 (09:41→21:39)
[2021-01-19] MEDS: buPROPion HCl XL 300 MG TAB.ER.24H PO (09:41)
[2021-01-19 09:42] VITALS: BP 137/63; PULSE 81
[2021-01-19] MEDS: Metoprolol Tartrate 25 MG TABLET PO ×2 (09:42→21:38)
[2021-01-19] MEDS: amLODIPine Besylate 5 MG TABLET PO (09:42)
[2021-01-19] MEDS: Cyanocobalamin (Vitamin B-12) 500 MCG TABLET PO (09:42)
[2021-01-19] MEDS: Thiamine HCL 100 MG TABLET PO (09:43)
--- NOTE | 2021-01-19 14:13 | P.PNPSI_ITS ---
Subjective Subjective Date of Service: 01/19/21 Reason For Visit: Alcohol withdrawal, SI Interim History: pt has no complaints or requests. continues to feel better mood-vaughan. c/o poor sleep, agrees to increase remeron to 30 mg at bedtime. informs her of plan for PHP at [place], pt is in agreement. she expresses substantial anxiety about being at home alone. per staff, pt pleasant and cooperative yesterday. sleeping well, appetite good. safe on unit, no SI. visible in milieu in afternoon. seen by PT. fell to knees last night while transferring to bed. slept 1-6 a.m. DFA. seen by PT today, PT reports they have given her instruction in exercises and cannot work with her thrice weekly due to staffing. PT to review exercises with pt with OT present today. Mental Status Exam Mental Status Exam Narrative: Using wheelchair. At home she uses a walker. Hospital clothing. Self-care improving. mood improved, not irritable. No HI/SI expressed. Insight and judgment okay Diagnostics Vital Signs (24Hr): Vital Signs - 24 hr 01/18/21 18:00 01/18/21 20:38 01/19/21 09:40 Temperature 98.2 F 98.4 F Pulse Rate 92 92 81 Respiratory Rate 18 Blood Pressure 134/68 134/68 137/63 Pulse Oximetry 97 95 01/19/21 09:42 Temperature Pulse Rate 81 Respiratory Rate Blood Pressure 137/63 Pulse Oximetry Body Mass Index 43.8 Medications Medications Current Medications Acetaminophen (Acetaminophen 325 Mg Tablet) 650 mg PO Q6H PRN PRN Reason: Headache/Pain Mild Scale (1-3) Last Admin: 01/18/21 20:37 Dose: 650 mg Documented by: Al Hydroxide/Mg Hydroxide (Magnesium Hydrox/Alum Hydrox 30 Ml Oral.Susp) 30 ml PO Q6H PRN PRN Reason: Heartburn/Nausea Albuterol Sulfate (Albuterol Sulfate 90 Mcg 8 Gm Inhaler) 1 puff INHALE Q4H PRN PRN Reason: wheezing Amlodipine Besylate (Amlodipine Besylate 5 Mg Tablet) 5 mg PO DAILY [facility]; Protocol Last Admin: 01/19/21 09:42 Dose: 5 mg Documented by: Amphetamine/Dextroamphetamine (Amphetamine Mixed Salts 10 Mg Tablet) 30 mg PO BID@0830,1330 [facility] Last Admin: 01/19/21 13:32 Dose: 30 mg Documented by: Benztropine Mesylate (Benztropine Mesylate 0.5 Mg Tablet) 0.5 mg PO BID [facility] Last Admin: 01/19/21 09:41 Dose: 0.5 mg Documented by: Bupropion HCl (Bupropion Hcl Xl 300 Mg Tab.Er.24h) 300 mg PO DAILY [facility] Last Admin: 01/19/21 09:41 Dose: 300 mg Documented by: Cyanocobalamin (Cyanocobalamin (Vitamin B-12) 500 Mcg Tablet) 500 mcg PO DAILY [facility] Last Admin: 01/19/21 09:42 Dose: 500 mcg Documented by: Docusate Sodium (Docusate Sodium 100 Mg Capsule) 100 mg PO DAILY PRN PRN Reason: Constipation Hydrocortisone (Hydrocortisone 1 % Cream 28.35 Gm Tube) 1 appl TOPICAL BID [facility]; Protocol Stop: 01/25/21 14:32 Last Admin: 01/19/21 10:05 Dose: Not Given Documented by: Hydroxyzine HCl (Hydroxyzine Hcl 25 Mg Tablet) 25 mg PO Q6H PRN PRN Reason: Anxiety Last Admin: 01/18/21 23:45 Dose: 25 mg Documented by: Lurasidone HCl (Lurasidone Hcl 20 Mg Tablet) 60 mg PO BEDTIME [facility] Last Admin: 01/18/21 20:36 Dose: 60 mg Documented by: Magnesium Hydroxide (Milk Of Magnesia 30 Ml Oral.Susp) 30 ml PO DAILY PRN PRN Reason: Constipation Metoprolol Tartrate (Metoprolol Tartrate 25 Mg Tablet) 25 mg PO BID [facility]; Protocol Last Admin: 01/19/21 09:42 Dose: 25 mg Documented by: Mirtazapine (Mirtazapine 30 Mg Tablet) 30 mg PO BEDTIME [facility] Thiamine HCl (Thiamine Hcl 100 Mg Tablet) 100 mg PO DAILY [facility] Last Admin: 01/19/21 09:43 Dose: 100 mg Documented by: Trazodone HCl (Trazodone Hcl 50 Mg Tablet) 250 mg PO BEDTIME [facility] Last Admin: 01/18/21 20:38 Dose: 250 mg Documented by: Allergies Allergies Allergy/AdvReac Type Severity Reaction Status Date / Time No Known Allergies Allergy Unknown Unverified 11/20/19 16:06 Assessment & Plan Assessment & Plan (1) Bipolar disorder: Status: Acute Code(s): F31.9 - Bipolar disorder, unspecified Assessment and Plan: experiencing current depression in the context of significant loss with her 26-year-old son 1 year anniversary on 12/15/2020. Does have irritability when attempting to discuss current medications, past medication trials and past diagnostic history to clarify manic episodes. Collateral info gathered from tulio chang per Dr. Luque on 01/13 01/11: trazodone increased from 75 mg qhs to 150 mg qhs. 01/12: wellbutrin XL 150 mg daily started for depression, ativan taper initiated, trazodone increased to 200 mg QHS. 01/13- continue per primary treatment team. pt reports depressed mood, anxious mood, missing son, no SI. 01/14 - ativan decreased to BID. 01/15 - wellbutrin increased to 300 mg daily. 01/16: trazodone increased to 250 mg QHS. 01/17: mood remains improved, sleep better. declines further med changes. interested in [facility]. 01/18: remeron started at 15 mg QHS for insomnia. 01/19: remeron increased to 30 mg QHS for insomnia. (2) Alcohol withdrawal syndrome: Qualifiers: Complication of substance-induced condition: uncomplicated Qualified Code(s): F10.230 - Alcohol dependence with withdrawal, uncomplicated Status: Resolved Code(s): F10.239 - Alcohol dependence with withdrawal, unspecified Assessment and Plan: completed phenobarb detox. I spent minutes with the patient and/or on the patient floor today, greater than?50% of which was spent counseling/coordinating care. Reason for contiued inpatient stay Substantial Risk for: harm to self, inability to function and rapid decompensation
[2021-01-19 14:34] VITALS: BP 137/63; PULSE 81
[2021-01-19 21:38] VITALS: BP 124/86; PULSE 87
[2021-01-19] MEDS: Lurasidone HCl 20 MG TABLET 60 MG PO (21:38)
[2021-01-19] MEDS: Mirtazapine 30 MG TABLET PO (21:38)
[2021-01-19] MEDS: traZODone HCL 50 MG TABLET 250 MG PO (21:39)
[2021-01-19 21:42] VITALS: BP 124/86; PULSE 87; TEMP 37; O2SAT 92
[2021-01-19] MEDS: Hydrocortisone 1 % Cream 28.35 GM TUBE 1 APPL TOPICAL (21:46)
[2021-01-19] MEDS: hydrOXYzine HCL 25 MG TABLET PO (23:41)
[2021-01-20 08:50] VITALS: BP 124/65; PULSE 81; RESP 16; TEMP 36.8; O2SAT 98
[2021-01-20 08:51] VITALS: BP 124/65; PULSE 81
[2021-01-20] MEDS: buPROPion HCl XL 300 MG TAB.ER.24H PO (08:51)
[2021-01-20] MEDS: Benztropine Mesylate 0.5 MG TABLET PO ×2 (08:51→20:33)
[2021-01-20] MEDS: amLODIPine Besylate 5 MG TABLET PO (08:51)
[2021-01-20] MEDS: Cyanocobalamin (Vitamin B-12) 500 MCG TABLET PO (08:51)
[2021-01-20] MEDS: Amphetamine Mixed Salts 10 MG TABLET 30 MG PO ×2 (08:51→13:33)
[2021-01-20 08:52] VITALS: BP 124/65; PULSE 81
[2021-01-20] MEDS: Metoprolol Tartrate 25 MG TABLET PO ×2 (08:52→20:33)
[2021-01-20] MEDS: Thiamine HCL 100 MG TABLET PO (08:52)
[2021-01-20 18:00] VITALS: BP 133/62; PULSE 86; RESP 16; TEMP 36.7; O2SAT 98
--- NOTE | 2021-01-20 18:43 | HO.PSYCHPN ---
Subjective Subjective Date of Service: 01/20/21 Reason For Visit: Alcohol withdrawal, SI Interim History: pt found resting in bed. pleasant, cooperative. some difficulty remaining asleep again last night, agrees to try remeron at 45 mg tonight. otherwise no complaints or requests. anxious about having to discharge to home prior to [facility]. suggests planning for some structure to her days in order to combat that fear. per staff, pleasant, cooperative. showering today. isolative, increased anxiety and depression. needs recovery plan prior to discharge. Mental Status Exam Mental Status Exam Narrative: Using wheelchair. At home she uses a walker. Hospital clothing. Self-care improving. mood improved, not irritable. No HI/SI expressed. Insight and judgment okay Diagnostics Vital Signs (24Hr): Vital Signs - 24 hr 01/19/21 21:38 01/19/21 21:42 01/20/21 08:50 Temperature 98.6 F 98.3 F Pulse Rate 87 87 81 Respiratory Rate 16 Blood Pressure 124/86 124/86 124/65 Pulse Oximetry 92 98 01/20/21 08:51 01/20/21 08:52 Temperature Pulse Rate 81 81 Respiratory Rate Blood Pressure 124/65 124/65 Pulse Oximetry Body Mass Index 43.8 Medications Medications Current Medications Acetaminophen (Acetaminophen 325 Mg Tablet) 650 mg PO Q6H PRN PRN Reason: Headache/Pain Mild Scale (1-3) Last Admin: 01/18/21 20:37 Dose: 650 mg Documented by: Al Hydroxide/Mg Hydroxide (Magnesium Hydrox/Alum Hydrox 30 Ml Oral.Susp) 30 ml PO Q6H PRN PRN Reason: Heartburn/Nausea Albuterol Sulfate (Albuterol Sulfate 90 Mcg 8 Gm Inhaler) 1 puff INHALE Q4H PRN PRN Reason: wheezing Amlodipine Besylate (Amlodipine Besylate 5 Mg Tablet) 5 mg PO DAILY [facility]; Protocol Last Admin: 01/20/21 08:51 Dose: 5 mg Documented by: Amphetamine/Dextroamphetamine (Amphetamine Mixed Salts 10 Mg Tablet) 30 mg PO BID@0830,1330 [facility] Last Admin: 01/20/21 13:33 Dose: 30 mg Documented by: Benztropine Mesylate (Benztropine Mesylate 0.5 Mg Tablet) 0.5 mg PO BID [facility] Last Admin: 01/20/21 08:51 Dose: 0.5 mg Documented by: Bupropion HCl (Bupropion Hcl Xl 300 Mg Tab.Er.24h) 300 mg PO DAILY [facility] Last Admin: 01/20/21 08:51 Dose: 300 mg Documented by: Cyanocobalamin (Cyanocobalamin (Vitamin B-12) 500 Mcg Tablet) 500 mcg PO DAILY [facility] Last Admin: 01/20/21 08:51 Dose: 500 mcg Documented by: Docusate Sodium (Docusate Sodium 100 Mg Capsule) 100 mg PO DAILY PRN PRN Reason: Constipation Hydrocortisone (Hydrocortisone 1 % Cream 28.35 Gm Tube) 1 appl TOPICAL BID [facility]; Protocol Stop: 01/25/21 14:32 Last Admin: 01/20/21 08:53 Dose: Not Given Documented by: Hydroxyzine HCl (Hydroxyzine Hcl 25 Mg Tablet) 25 mg PO Q6H PRN PRN Reason: Anxiety Last Admin: 01/19/21 23:41 Dose: 25 mg Documented by: Lurasidone HCl (Lurasidone Hcl 20 Mg Tablet) 60 mg PO BEDTIME [facility] Last Admin: 01/19/21 21:38 Dose: 60 mg Documented by: Magnesium Hydroxide (Milk Of Magnesia 30 Ml Oral.Susp) 30 ml PO DAILY PRN PRN Reason: Constipation Metoprolol Tartrate (Metoprolol Tartrate 25 Mg Tablet) 25 mg PO BID [facility]; Protocol Last Admin: 01/20/21 08:52 Dose: 25 mg Documented by: Mirtazapine (Mirtazapine 15 Mg Tablet) 45 mg PO BEDTIME [facility] Thiamine HCl (Thiamine Hcl 100 Mg Tablet) 100 mg PO DAILY [facility] Last Admin: 01/20/21 08:52 Dose: 100 mg Documented by: Trazodone HCl (Trazodone Hcl 50 Mg Tablet) 250 mg PO BEDTIME [facility] Last Admin: 01/19/21 21:39 Dose: 250 mg Documented by: Allergies Allergies Allergy/AdvReac Type Severity Reaction Status Date / Time No Known Allergies Allergy Unknown Unverified 11/20/19 16:06 Assessment & Plan Assessment & Plan (1) Bipolar disorder: Status: Acute Code(s): F31.9 - Bipolar disorder, unspecified Assessment and Plan: experiencing current depression in the context of significant loss with her 26-year-old son 1 year anniversary on 12/15/2020. Does have irritability when attempting to discuss current medications, past medication trials and past diagnostic history to clarify manic episodes. Collateral info gathered from tulio chang per Dr. Luque on 01/13 01/11: trazodone increased from 75 mg qhs to 150 mg qhs. 01/12: wellbutrin XL 150 mg daily started for depression, ativan taper initiated, trazodone increased to 200 mg QHS. 01/13- continue per primary treatment team. pt reports depressed mood, anxious mood, missing son, no SI. 01/14 - ativan decreased to BID. 01/15 - wellbutrin increased to 300 mg daily. 01/16: trazodone increased to 250 mg QHS. 01/17: mood remains improved, sleep better. declines further med changes. interested in [facility]. 01/18: remeron started at 15 mg QHS for insomnia. 01/19: remeron increased to 30 mg QHS for insomnia. 01/20: remeron increased to 45 mg QHS for insomnia. (2) Alcohol withdrawal syndrome: Qualifiers: Complication of substance-induced condition: uncomplicated Qualified Code(s): F10.230 - Alcohol dependence with withdrawal, uncomplicated Status: Resolved Code(s): F10.239 - Alcohol dependence with withdrawal, unspecified Assessment and Plan: completed phenobarb detox. I spent minutes with the patient and/or on the patient floor today, greater than?50% of which was spent counseling/coordinating care. Reason for contiued inpatient stay Substantial Risk for: harm to self, inability to function and rapid decompensation
[2021-01-20] MEDS: traZODone HCL 50 MG TABLET 250 MG PO (20:30)
[2021-01-20] MEDS: Mirtazapine 15 MG TABLET 45 MG PO (20:31)
[2021-01-20] MEDS: Lurasidone HCl 20 MG TABLET 60 MG PO (20:32)
[2021-01-20 20:33] VITALS: BP 133/62; PULSE 85
[2021-01-20] MEDS: Hydrocortisone 1 % Cream 28.35 GM TUBE 1 APPL TOPICAL (20:35)
[2021-01-21 09:55] VITALS: BP 122/65; PULSE 86; RESP 16; TEMP 36.6; O2SAT 98
[2021-01-21] MEDS: buPROPion HCl XL 300 MG TAB.ER.24H PO (10:00)
[2021-01-21] MEDS: Amphetamine Mixed Salts 10 MG TABLET 30 MG PO ×2 (10:00→13:35)
[2021-01-21] MEDS: Cyanocobalamin (Vitamin B-12) 500 MCG TABLET PO (10:00)
[2021-01-21] MEDS: Thiamine HCL 100 MG TABLET PO (10:00)
[2021-01-21 10:01] VITALS: BP 122/65; PULSE 86
[2021-01-21] MEDS: Metoprolol Tartrate 25 MG TABLET PO ×2 (10:01→21:02)
[2021-01-21] MEDS: amLODIPine Besylate 5 MG TABLET PO (10:01)
[2021-01-21] MEDS: Benztropine Mesylate 0.5 MG TABLET PO ×2 (10:01→21:03)
--- NOTE | 2021-01-21 14:35 | P.PNPSI_ITS ---
Subjective Subjective Date of Service: 01/21/21 Reason For Visit: Alcohol withdrawal, SI Interim History: pt repros she has been having a good day today bcse she has not been too preoccupied with the loss of her son. she has been engaged and busy on the unit, keeping her mind occupied. she reports she slept better last night after having been given the 50 mg trazodone PRN. she is agreeable to increase her scheduled trazodone to 300 MG. no other complaints or requests. per staff, showered and did PT exercises yesterday. active. restless sleep. Mental Status Exam Mental Status Exam Narrative: Using wheelchair. At home she uses a walker. Hospital clothing. Self-care improving. mood improved, not irritable. No HI/SI expressed. Insight and judgment okay Diagnostics Vital Signs (24Hr): Vital Signs - 24 hr 01/20/21 18:00 01/20/21 20:33 01/21/21 09:55 Temperature 98.1 F 97.9 F Pulse Rate 86 85 86 Respiratory Rate 16 16 Blood Pressure 133/62 133/62 122/65 Pulse Oximetry 98 98 01/21/21 10:01 Temperature Pulse Rate 86 Respiratory Rate Blood Pressure 122/65 Pulse Oximetry Body Mass Index 43.8 Medications Medications Current Medications Acetaminophen (Acetaminophen 325 Mg Tablet) 650 mg PO Q6H PRN PRN Reason: Headache/Pain Mild Scale (1-3) Last Admin: 01/18/21 20:37 Dose: 650 mg Documented by: Al Hydroxide/Mg Hydroxide (Magnesium Hydrox/Alum Hydrox 30 Ml Oral.Susp) 30 ml PO Q6H PRN PRN Reason: Heartburn/Nausea Albuterol Sulfate (Albuterol Sulfate 90 Mcg 8 Gm Inhaler) 1 puff INHALE Q4H PRN PRN Reason: wheezing Amlodipine Besylate (Amlodipine Besylate 5 Mg Tablet) 5 mg PO DAILY [facility]; Protocol Last Admin: 01/21/21 10:01 Dose: 5 mg Documented by: Amphetamine/Dextroamphetamine (Amphetamine Mixed Salts 10 Mg Tablet) 30 mg PO BID@0830,1330 [facility] Last Admin: 01/21/21 13:35 Dose: 30 mg Documented by: Benztropine Mesylate (Benztropine Mesylate 0.5 Mg Tablet) 0.5 mg PO BID [facility] Last Admin: 01/21/21 10:01 Dose: 0.5 mg Documented by: Bupropion HCl (Bupropion Hcl Xl 300 Mg Tab.Er.24h) 300 mg PO DAILY [facility] Last Admin: 01/21/21 10:00 Dose: 300 mg Documented by: Cyanocobalamin (Cyanocobalamin (Vitamin B-12) 500 Mcg Tablet) 500 mcg PO DAILY [facility] Last Admin: 01/21/21 10:00 Dose: 500 mcg Documented by: Docusate Sodium (Docusate Sodium 100 Mg Capsule) 100 mg PO DAILY PRN PRN Reason: Constipation Hydrocortisone (Hydrocortisone 1 % Cream 28.35 Gm Tube) 1 appl TOPICAL BID [facility]; Protocol Stop: 01/25/21 14:32 Last Admin: 01/21/21 10:39 Dose: Not Given Documented by: Hydroxyzine HCl (Hydroxyzine Hcl 25 Mg Tablet) 25 mg PO Q6H PRN PRN Reason: Anxiety Last Admin: 01/19/21 23:41 Dose: 25 mg Documented by: Lurasidone HCl (Lurasidone Hcl 20 Mg Tablet) 60 mg PO BEDTIME [facility] Last Admin: 01/20/21 20:32 Dose: 60 mg Documented by: Magnesium Hydroxide (Milk Of Magnesia 30 Ml Oral.Susp) 30 ml PO DAILY PRN PRN Reason: Constipation Metoprolol Tartrate (Metoprolol Tartrate 25 Mg Tablet) 25 mg PO BID [facility]; Protocol Last Admin: 01/21/21 10:01 Dose: 25 mg Documented by: Mirtazapine (Mirtazapine 15 Mg Tablet) 45 mg PO BEDTIME [facility] Last Admin: 01/20/21 20:31 Dose: 45 mg Documented by: Thiamine HCl (Thiamine Hcl 100 Mg Tablet) 100 mg PO DAILY [facility] Last Admin: 01/21/21 10:00 Dose: 100 mg Documented by: Trazodone HCl (Trazodone Hcl 50 Mg Tablet) 250 mg PO BEDTIME [facility] Last Admin: 01/20/21 20:30 Dose: 250 mg Documented by: Allergies Allergies Allergy/AdvReac Type Severity Reaction Status Date / Time No Known Allergies Allergy Unknown Unverified 11/20/19 16:06 Assessment & Plan Assessment & Plan (1) Bipolar disorder: Status: Acute Code(s): F31.9 - Bipolar disorder, unspecified Assessment and Plan: experiencing current depression in the context of significant loss with her 26-year-old son 1 year anniversary on 12/15/2020. Does have irritability when attempting to discuss current medications, past medication trials and past diagnostic history to clarify manic episodes. Collateral info gathered from tulio chang per Dr. Luque on 01/13 01/11: trazodone increased from 75 mg qhs to 150 mg qhs. 01/12: wellbutrin XL 150 mg daily started for depression, ativan taper initiated, trazodone increased to 200 mg QHS. 01/13- continue per primary treatment team. pt reports depressed mood, anxious mood, missing son, no SI. 01/14 - ativan decreased to BID. 01/15 - wellbutrin increased to 300 mg daily. 01/16: trazodone increased to 250 mg QHS. 01/17: mood remains improved, sleep better. declines further med changes. interested in [facility]. 01/18: remeron started at 15 mg QHS for insomnia. 01/19: remeron increased to 30 mg QHS for insomnia. 01/20: remeron increased to 45 mg QHS for insomnia. 01/21: trazodone increased to 300 mg QHS for insomnia. (2) Alcohol withdrawal syndrome: Qualifiers: Complication of substance-induced condition: uncomplicated Qualified Code(s): F10.230 - Alcohol dependence with withdrawal, uncomplicated Status: Resolved Code(s): F10.239 - Alcohol dependence with withdrawal, unspecified Assessment and Plan: completed phenobarb detox. I spent minutes with the patient and/or on the patient floor today, greater than?50% of which was spent counseling/coordinating care. Reason for contiued inpatient stay Substantial Risk for: harm to self, inability to function and rapid decompensation
[2021-01-21 21:02] VITALS: BP 131/64; PULSE 91
[2021-01-21] MEDS: Mirtazapine 15 MG TABLET 45 MG PO (21:03)
[2021-01-21] MEDS: traZODone HCL 100 MG TABLET 300 MG PO (21:03)
[2021-01-21] MEDS: Hydrocortisone 1 % Cream 28.35 GM TUBE 1 APPL TOPICAL (21:04)
[2021-01-21] MEDS: Lurasidone HCl 20 MG TABLET 60 MG PO (21:04)
[2021-01-21 21:10] VITALS: BP 131/64; PULSE 91; TEMP 36.8; O2SAT 95
[2021-01-22 10:08] VITALS: BP 125/61; BP 125/64; PULSE 82
[2021-01-22] MEDS: Cyanocobalamin (Vitamin B-12) 500 MCG TABLET PO (10:08)
[2021-01-22] MEDS: Amphetamine Mixed Salts 10 MG TABLET 30 MG PO ×2 (10:08→13:10)
[2021-01-22] MEDS: buPROPion HCl XL 300 MG TAB.ER.24H PO (10:08)
[2021-01-22] MEDS: amLODIPine Besylate 5 MG TABLET PO (10:08)
[2021-01-22] MEDS: Metoprolol Tartrate 25 MG TABLET PO ×2 (10:08→20:05)
[2021-01-22] MEDS: Benztropine Mesylate 0.5 MG TABLET PO ×2 (10:08→20:09)
[2021-01-22] MEDS: Thiamine HCL 100 MG TABLET PO (10:08)
[2021-01-22 10:14] VITALS: BP 125/61; PULSE 82; TEMP 36.8
[2021-01-22] MEDS: Acetaminophen 325 MG TABLET 650 MG PO (12:47)
--- NOTE | 2021-01-22 17:32 | P.PNPSI_ITS ---
Subjective Subjective Date of Service: 01/22/21 Reason For Visit: Alcohol withdrawal, SI Interim History: Seen and discussed. I woke up wonderful today. Reports she has not been depressed today. Continues to use the walker or wheelchair. Sleep is good. Appetite is good. Engaged in the milieu. Review of Systems Medical Review of Systems: unchanged Review of Systems Review of Systems Low energy and feeling stiff and will try utilize walker rather than a wheelchair Mental Status Exam Mental Status Exam Narrative: Uses a walker. Hospital clothing. Self-care improving. mood improved, not irritable. No HI/SI expressed. Insight and judgment okay Diagnostics Vital Signs (24Hr): Vital Signs - 24 hr 01/21/21 21:02 01/21/21 21:10 01/22/21 10:08 Temperature 98.3 F Pulse Rate 91 91 82 Blood Pressure 131/64 131/64 125/64 Pulse Oximetry 95 01/22/21 10:14 Temperature 98.3 F Pulse Rate 82 Blood Pressure 125/61 Pulse Oximetry Body Mass Index 43.8 Medications Medications Current Medications Acetaminophen (Acetaminophen 325 Mg Tablet) 650 mg PO Q6H PRN PRN Reason: Headache/Pain Mild Scale (1-3) Last Admin: 01/22/21 12:47 Dose: 650 mg Documented by: Al Hydroxide/Mg Hydroxide (Magnesium Hydrox/Alum Hydrox 30 Ml Oral.Susp) 30 ml PO Q6H PRN PRN Reason: Heartburn/Nausea Albuterol Sulfate (Albuterol Sulfate 90 Mcg 8 Gm Inhaler) 1 puff INHALE Q4H PRN PRN Reason: wheezing Amlodipine Besylate (Amlodipine Besylate 5 Mg Tablet) 5 mg PO DAILY [facility]; Protocol Last Admin: 01/22/21 10:08 Dose: 5 mg Documented by: Amphetamine/Dextroamphetamine (Amphetamine Mixed Salts 10 Mg Tablet) 30 mg PO BID@0830,1330 [facility] Last Admin: 01/22/21 13:10 Dose: 30 mg Documented by: Benztropine Mesylate (Benztropine Mesylate 0.5 Mg Tablet) 0.5 mg PO BID [facility] Last Admin: 01/22/21 10:08 Dose: 0.5 mg Documented by: Bupropion HCl (Bupropion Hcl Xl 300 Mg Tab.Er.24h) 300 mg PO DAILY [facility] Last Admin: 01/22/21 10:08 Dose: 300 mg Documented by: Cyanocobalamin (Cyanocobalamin (Vitamin B-12) 500 Mcg Tablet) 500 mcg PO DAILY [facility] Last Admin: 01/22/21 10:08 Dose: 500 mcg Documented by: Docusate Sodium (Docusate Sodium 100 Mg Capsule) 100 mg PO DAILY PRN PRN Reason: Constipation Hydrocortisone (Hydrocortisone 1 % Cream 28.35 Gm Tube) 1 appl TOPICAL BID [facility]; Protocol Stop: 01/25/21 14:32 Last Admin: 01/22/21 10:10 Dose: Not Given Documented by: Hydroxyzine HCl (Hydroxyzine Hcl 25 Mg Tablet) 25 mg PO Q6H PRN PRN Reason: Anxiety Last Admin: 01/19/21 23:41 Dose: 25 mg Documented by: Lurasidone HCl (Lurasidone Hcl 20 Mg Tablet) 60 mg PO BEDTIME [facility] Last Admin: 01/21/21 21:04 Dose: 60 mg Documented by: Magnesium Hydroxide (Milk Of Magnesia 30 Ml Oral.Susp) 30 ml PO DAILY PRN PRN Reason: Constipation Metoprolol Tartrate (Metoprolol Tartrate 25 Mg Tablet) 25 mg PO BID [facility]; Protocol Last Admin: 01/22/21 10:08 Dose: 25 mg Documented by: Mirtazapine (Mirtazapine 15 Mg Tablet) 45 mg PO BEDTIME [facility] Last Admin: 01/21/21 21:03 Dose: 45 mg Documented by: Thiamine HCl (Thiamine Hcl 100 Mg Tablet) 100 mg PO DAILY [facility] Last Admin: 01/22/21 10:08 Dose: 100 mg Documented by: Trazodone HCl (Trazodone Hcl 100 Mg Tablet) 300 mg PO BEDTIME [facility] Last Admin: 01/21/21 21:03 Dose: 300 mg Documented by: Allergies Allergies Allergy/AdvReac Type Severity Reaction Status Date / Time No Known Allergies Allergy Unknown Unverified 11/20/19 16:06 Assessment & Plan Assessment & Plan (1) Bipolar disorder: Status: Acute Code(s): F31.9 - Bipolar disorder, unspecified Assessment and Plan: experiencing current depression in the context of significant loss with her 26-year-old son 1 year anniversary on 12/15/2020. Does have irritability when attempting to discuss current medications, past medication trials and past diagnostic history to clarify manic episodes. Collateral info gathered from tulio chang per Dr. Luque on 01/13 01/11: trazodone increased from 75 mg qhs to 150 mg qhs. 01/12: wellbutrin XL 150 mg daily started for depression, ativan taper initiated, trazodone increased to 200 mg QHS. 01/13- continue per primary treatment team. pt reports depressed mood, anxious mood, missing son, no SI. 01/14 - ativan decreased to BID. 01/15 - wellbutrin increased to 300 mg daily. 01/16: trazodone increased to 250 mg QHS. 01/17: mood remains improved, sleep better. declines further med changes. interested in [facility]. 01/18: remeron started at 15 mg QHS for insomnia. 01/19: remeron increased to 30 mg QHS for insomnia. 01/20: remeron increased to 45 mg QHS for insomnia. 01/21: trazodone increased to 300 mg QHS for insomnia. 01/22: No change (2) Alcohol withdrawal syndrome: Qualifiers: Complication of substance-induced condition: uncomplicated Qualified Code(s): F10.230 - Alcohol dependence with withdrawal, uncomplicated Status: Resolved Code(s): F10.239 - Alcohol dependence with withdrawal, unspecified Assessment and Plan: completed phenobarb detox. I spent minutes with the patient and/or on the patient floor today, greater than?50% of which was spent counseling/coordinating care. Reason for contiued inpatient stay Substantial Risk for: harm to self and inability to function
[2021-01-22 20:05] VITALS: BP 134/68; PULSE 88
[2021-01-22] MEDS: traZODone HCL 100 MG TABLET 300 MG PO (20:05)
[2021-01-22] MEDS: Lurasidone HCl 20 MG TABLET 60 MG PO (20:07)
[2021-01-22] MEDS: Mirtazapine 15 MG TABLET 45 MG PO (20:08)
[2021-01-22 20:14] VITALS: BP 134/68; PULSE 88; RESP 17; TEMP 36.8; O2SAT 98
[2021-01-23] MEDS: hydrOXYzine HCL 25 MG TABLET PO (00:58)
[2021-01-23 10:01] VITALS: BP 132/63; PULSE 89
[2021-01-23] MEDS: amLODIPine Besylate 5 MG TABLET PO (10:01)
[2021-01-23] MEDS: Amphetamine Mixed Salts 10 MG TABLET 30 MG PO ×2 (10:01→13:28)
[2021-01-23] MEDS: Cyanocobalamin (Vitamin B-12) 500 MCG TABLET PO (10:01)
[2021-01-23 10:02] VITALS: BP 132/63; PULSE 89
[2021-01-23] MEDS: Benztropine Mesylate 0.5 MG TABLET PO ×2 (10:02→21:26)
[2021-01-23] MEDS: Thiamine HCL 100 MG TABLET PO (10:02)
[2021-01-23] MEDS: buPROPion HCl XL 300 MG TAB.ER.24H PO (10:02)
[2021-01-23] MEDS: Metoprolol Tartrate 25 MG TABLET PO ×2 (10:02→21:26)
[2021-01-23 10:06] VITALS: BP 132/63; PULSE 89; TEMP 36.8
--- NOTE | 2021-01-23 15:00 | HO.PSYCHPN ---
Subjective Subjective Date of Service: 01/23/21 Reason For Visit: Alcohol withdrawal, SI Interim History: Seen and discussed. Continues to report improved mood and anxiety although still rates her anxiety a 10 . Utilizes PRN Hydroxyzine. Reports she has not been depressed today. Continues to use the walker or wheelchair. Sleep is good. Appetite is good. Engaged in the milieu. Review of Systems Review of Systems Low energy and feeling stiff and will try utilize walker rather than a wheelchair Mental Status Exam Mental Status Exam Narrative: Uses a walker. Hospital clothing. Self-care improving. mood improved, not irritable. No HI/SI expressed. Insight and judgment okay Diagnostics Vital Signs (24Hr): Vital Signs - 24 hr 01/23/21 10:01 01/23/21 10:02 01/23/21 10:06 Temperature 98.3 F Pulse Rate 89 89 89 Blood Pressure 132/63 132/63 132/63 Pulse Oximetry 01/23/21 21:22 01/23/21 21:26 Temperature 98.0 F Pulse Rate 92 Blood Pressure 122/76 Pulse Oximetry 98 Body Mass Index 43.8 Medications Medications Current Medications Acetaminophen (Acetaminophen 325 Mg Tablet) 650 mg PO Q6H PRN PRN Reason: Headache/Pain Mild Scale (1-3) Last Admin: 01/22/21 12:47 Dose: 650 mg Documented by: Al Hydroxide/Mg Hydroxide (Magnesium Hydrox/Alum Hydrox 30 Ml Oral.Susp) 30 ml PO Q6H PRN PRN Reason: Heartburn/Nausea Albuterol Sulfate (Albuterol Sulfate 90 Mcg 8 Gm Inhaler) 1 puff INHALE Q4H PRN PRN Reason: wheezing Amlodipine Besylate (Amlodipine Besylate 5 Mg Tablet) 5 mg PO DAILY [facility]; Protocol Last Admin: 01/23/21 10:01 Dose: 5 mg Documented by: Amphetamine/Dextroamphetamine (Amphetamine Mixed Salts 10 Mg Tablet) 30 mg PO BID@0830,1330 [facility] Last Admin: 01/23/21 13:28 Dose: 30 mg Documented by: Benztropine Mesylate (Benztropine Mesylate 0.5 Mg Tablet) 0.5 mg PO BID [facility] Last Admin: 01/23/21 21:26 Dose: 0.5 mg Documented by: Bupropion HCl (Bupropion Hcl Xl 300 Mg Tab.Er.24h) 300 mg PO DAILY [facility] Last Admin: 01/23/21 10:02 Dose: 300 mg Documented by: Cyanocobalamin (Cyanocobalamin (Vitamin B-12) 500 Mcg Tablet) 500 mcg PO DAILY [facility] Last Admin: 01/23/21 10:01 Dose: 500 mcg Documented by: Docusate Sodium (Docusate Sodium 100 Mg Capsule) 100 mg PO DAILY PRN PRN Reason: Constipation Hydrocortisone (Hydrocortisone 1 % Cream 28.35 Gm Tube) 1 appl TOPICAL BID [facility]; Protocol Stop: 01/25/21 14:32 Last Admin: 01/23/21 21:28 Dose: Not Given Documented by: Hydroxyzine HCl (Hydroxyzine Hcl 25 Mg Tablet) 25 mg PO Q6H PRN PRN Reason: Anxiety Last Admin: 01/23/21 00:58 Dose: 25 mg Documented by: Lurasidone HCl (Lurasidone Hcl 20 Mg Tablet) 60 mg PO BEDTIME [facility] Last Admin: 01/23/21 21:26 Dose: 60 mg Documented by: Magnesium Hydroxide (Milk Of Magnesia 30 Ml Oral.Susp) 30 ml PO DAILY PRN PRN Reason: Constipation Metoprolol Tartrate (Metoprolol Tartrate 25 Mg Tablet) 25 mg PO BID [facility]; Protocol Last Admin: 01/23/21 21:26 Dose: 25 mg Documented by: Mirtazapine (Mirtazapine 15 Mg Tablet) 45 mg PO BEDTIME [facility] Last Admin: 01/23/21 21:26 Dose: 45 mg Documented by: Thiamine HCl (Thiamine Hcl 100 Mg Tablet) 100 mg PO DAILY [facility] Last Admin: 01/23/21 10:02 Dose: 100 mg Documented by: Trazodone HCl (Trazodone Hcl 100 Mg Tablet) 300 mg PO BEDTIME [facility] Last Admin: 01/23/21 21:26 Dose: 300 mg Documented by: Allergies Allergies Allergy/AdvReac Type Severity Reaction Status Date / Time No Known Allergies Allergy Unknown Unverified 11/20/19 16:06 Assessment & Plan Assessment & Plan (1) Bipolar disorder: Status: Acute Code(s): F31.9 - Bipolar disorder, unspecified Assessment and Plan: experiencing current depression in the context of significant loss with her 26-year-old son 1 year anniversary on 12/15/2020. Does have irritability when attempting to discuss current medications, past medication trials and past diagnostic history to clarify manic episodes. Collateral info gathered from tulio chang per Dr. Luque on 01/13 01/11: trazodone increased from 75 mg qhs to 150 mg qhs. 01/12: wellbutrin XL 150 mg daily started for depression, ativan taper initiated, trazodone increased to 200 mg QHS. 01/13- continue per primary treatment team. pt reports depressed mood, anxious mood, missing son, no SI. 01/14 - ativan decreased to BID. 01/15 - wellbutrin increased to 300 mg daily. 01/16: trazodone increased to 250 mg QHS. 01/17: mood remains improved, sleep better. declines further med changes. interested in [facility]. 01/18: remeron started at 15 mg QHS for insomnia. 01/19: remeron increased to 30 mg QHS for insomnia. 01/20: remeron increased to 45 mg QHS for insomnia. 01/21: trazodone increased to 300 mg QHS for insomnia. 01/22: No change 01/23: No change in medications. (2) Alcohol withdrawal syndrome: Qualifiers: Complication of substance-induced condition: uncomplicated Qualified Code(s): F10.230 - Alcohol dependence with withdrawal, uncomplicated Status: Resolved Code(s): F10.239 - Alcohol dependence with withdrawal, unspecified Assessment and Plan: completed phenobarb detox. I spent minutes with the patient and/or on the patient floor today, greater than?50% of which was spent counseling/coordinating care. Reason for contiued inpatient stay Substantial Risk for: inability to function and rapid decompensation
[2021-01-23 21:22] VITALS: TEMP 36.7; O2SAT 98
[2021-01-23 21:26] VITALS: BP 122/76; PULSE 92
[2021-01-23] MEDS: traZODone HCL 100 MG TABLET 300 MG PO (21:26)
[2021-01-23] MEDS: Mirtazapine 15 MG TABLET 45 MG PO (21:26)
[2021-01-23] MEDS: Lurasidone HCl 20 MG TABLET 60 MG PO (21:26)
[2021-01-24 09:50] VITALS: BP 120/71; PULSE 84; RESP 16; TEMP 36.7; O2SAT 98
[2021-01-24 09:57] VITALS: BP 120/71; PULSE 84
[2021-01-24] MEDS: Cyanocobalamin (Vitamin B-12) 500 MCG TABLET PO (09:57)
[2021-01-24] MEDS: Amphetamine Mixed Salts 10 MG TABLET 30 MG PO ×2 (09:57→13:27)
[2021-01-24] MEDS: buPROPion HCl XL 300 MG TAB.ER.24H PO (09:57)
[2021-01-24] MEDS: amLODIPine Besylate 5 MG TABLET PO (09:57)
[2021-01-24] MEDS: Thiamine HCL 100 MG TABLET PO (09:57)
[2021-01-24] MEDS: Metoprolol Tartrate 25 MG TABLET PO ×2 (09:58→20:34)
[2021-01-24] MEDS: Benztropine Mesylate 0.5 MG TABLET PO ×2 (09:58→20:33)
[2021-01-24] MEDS: Hydrocortisone 1 % Cream 28.35 GM TUBE 1 APPL TOPICAL (10:00)
--- NOTE | 2021-01-24 13:25 | P.PNPSI_ITS ---
Subjective Subjective Date of Service: 01/24/21 Reason For Visit: Alcohol withdrawal, SI Interim History: pt reports she continues to feel well. she is concerned about her lower extremity strength and asks anxiously about PT services for after discharge. she is gratified to hear that she will be getting in-home PT services. suggests PHP would not be best for her and that usual outpt care plus some kind of adult daycare program would be most helpful. pt states she would not do that, it would feel embarrassing for her. she states she would volunteer perhaps. she states she has a [facility] MD Dr. Ranjeet Pate, and that she needs a PCP and would like a VNA for medications help. planning for DC sometime this week. agreeable to be rid of wheelchair and use walker alone in preparation for discharge. pt states she didn't use the wheelchair once yesterday. per staff, pt in great mood. brighter. denies anx/dep. sleeping well, eating well. Mental Status Exam Mental Status Exam Narrative: using walker. Hospital clothing. Self-care improving. mood improved, not irritable. reports she is still depressed, however. No HI/SI expressed. Insight and judgment okay Diagnostics Vital Signs (24Hr): Vital Signs - 24 hr 01/23/21 21:22 01/23/21 21:26 01/24/21 09:50 Temperature 98.0 F 98.1 F Pulse Rate 92 84 Respiratory Rate 16 Blood Pressure 122/76 120/71 Pulse Oximetry 98 98 01/24/21 09:57 Temperature Pulse Rate 84 Respiratory Rate Blood Pressure 120/71 Pulse Oximetry Body Mass Index 43.8 Medications Medications Current Medications Acetaminophen (Acetaminophen 325 Mg Tablet) 650 mg PO Q6H PRN PRN Reason: Headache/Pain Mild Scale (1-3) Last Admin: 01/22/21 12:47 Dose: 650 mg Documented by: Al Hydroxide/Mg Hydroxide (Magnesium Hydrox/Alum Hydrox 30 Ml Oral.Susp) 30 ml PO Q6H PRN PRN Reason: Heartburn/Nausea Albuterol Sulfate (Albuterol Sulfate 90 Mcg 8 Gm Inhaler) 1 puff INHALE Q4H PRN PRN Reason: wheezing Amlodipine Besylate (Amlodipine Besylate 5 Mg Tablet) 5 mg PO DAILY [facility]; Protocol Last Admin: 01/24/21 09:57 Dose: 5 mg Documented by: Amphetamine/Dextroamphetamine (Amphetamine Mixed Salts 10 Mg Tablet) 30 mg PO BID@0830,1330 [facility] Last Admin: 01/24/21 09:57 Dose: 30 mg Documented by: Benztropine Mesylate (Benztropine Mesylate 0.5 Mg Tablet) 0.5 mg PO BID [facility] Last Admin: 01/24/21 09:58 Dose: 0.5 mg Documented by: Bupropion HCl (Bupropion Hcl Xl 300 Mg Tab.Er.24h) 300 mg PO DAILY [facility] Last Admin: 01/24/21 09:57 Dose: 300 mg Documented by: Cyanocobalamin (Cyanocobalamin (Vitamin B-12) 500 Mcg Tablet) 500 mcg PO DAILY [facility] Last Admin: 01/24/21 09:57 Dose: 500 mcg Documented by: Docusate Sodium (Docusate Sodium 100 Mg Capsule) 100 mg PO DAILY PRN PRN Reason: Constipation Hydrocortisone (Hydrocortisone 1 % Cream 28.35 Gm Tube) 1 appl TOPICAL BID [facility]; Protocol Stop: 01/25/21 14:32 Last Admin: 01/24/21 10:00 Dose: 1 appl Documented by: Hydroxyzine HCl (Hydroxyzine Hcl 25 Mg Tablet) 25 mg PO Q6H PRN PRN Reason: Anxiety Last Admin: 01/23/21 00:58 Dose: 25 mg Documented by: Lurasidone HCl (Lurasidone Hcl 20 Mg Tablet) 60 mg PO BEDTIME [facility] Last Admin: 01/23/21 21:26 Dose: 60 mg Documented by: Magnesium Hydroxide (Milk Of Magnesia 30 Ml Oral.Susp) 30 ml PO DAILY PRN PRN Reason: Constipation Metoprolol Tartrate (Metoprolol Tartrate 25 Mg Tablet) 25 mg PO BID [facility]; Protocol Last Admin: 01/24/21 09:58 Dose: 25 mg Documented by: Mirtazapine (Mirtazapine 15 Mg Tablet) 45 mg PO BEDTIME [facility] Last Admin: 01/23/21 21:26 Dose: 45 mg Documented by: Thiamine HCl (Thiamine Hcl 100 Mg Tablet) 100 mg PO DAILY [facility] Last Admin: 01/24/21 09:57 Dose: 100 mg Documented by: Trazodone HCl (Trazodone Hcl 100 Mg Tablet) 300 mg PO BEDTIME [facility] Last Admin: 01/23/21 21:26 Dose: 300 mg Documented by: Allergies Allergies Allergy/AdvReac Type Severity Reaction Status Date / Time No Known Allergies Allergy Unknown Unverified 11/20/19 16:06 Assessment & Plan Assessment & Plan (1) Bipolar disorder: Status: Acute Code(s): F31.9 - Bipolar disorder, unspecified Assessment and Plan: experiencing current depression in the context of significant loss with her 26-year-old son 1 year anniversary on 12/15/2020. Does have irritability when attempting to discuss current medications, past medication trials and past diagnostic history to clarify manic episodes. Collateral info gathered from ranjeet chang per Dr. Luque on 01/13 01/11: trazodone increased from 75 mg qhs to 150 mg qhs. 01/12: wellbutrin XL 150 mg daily started for depression, ativan taper initiated, trazodone increased to 200 mg QHS. 01/13- continue per primary treatment team. pt reports depressed mood, anxious mood, missing son, no SI. 01/14 - ativan decreased to BID. 01/15 - wellbutrin increased to 300 mg daily. 01/16: trazodone increased to 250 mg QHS. 01/17: mood remains improved, sleep better. declines further med changes. interested in [facility]. 01/18: remeron started at 15 mg QHS for insomnia. 01/19: remeron increased to 30 mg QHS for insomnia. 01/20: remeron increased to 45 mg QHS for insomnia. 01/21: trazodone increased to 300 mg QHS for insomnia. 01/22 and on: no changes, gradually improving mood. (2) Alcohol withdrawal syndrome: Qualifiers: Complication of substance-induced condition: uncomplicated Qualified Code(s): F10.230 - Alcohol dependence with withdrawal, uncomplicated Status: Resolved Code(s): F10.239 - Alcohol dependence with withdrawal, unspecified Assessment and Plan: completed phenobarb detox. I spent minutes with the patient and/or on the patient floor today, greater than?50% of which was spent counseling/coordinating care. Reason for contiued inpatient stay Substantial Risk for: harm to self, inability to function and rapid decompensation
[2021-01-24 20:15] VITALS: BP 132/69; PULSE 85; TEMP 36.3; O2SAT 96
[2021-01-24] MEDS: traZODone HCL 100 MG TABLET 300 MG PO (20:33)
[2021-01-24] MEDS: Lurasidone HCl 20 MG TABLET 60 MG PO (20:33)
[2021-01-24] MEDS: Mirtazapine 15 MG TABLET 45 MG PO (20:34)
[2021-01-25 09:10] VITALS: BP 124/67; PULSE 87; RESP 18; TEMP 36.3; O2SAT 96
[2021-01-25] MEDS: Thiamine HCL 100 MG TABLET PO (09:10)
[2021-01-25] MEDS: amLODIPine Besylate 5 MG TABLET PO (09:10)
[2021-01-25] MEDS: Amphetamine Mixed Salts 10 MG TABLET 30 MG PO ×2 (09:10→13:36)
[2021-01-25 09:11] VITALS: BP 124/67; PULSE 87
[2021-01-25] MEDS: Benztropine Mesylate 0.5 MG TABLET PO ×2 (09:11→21:36)
[2021-01-25] MEDS: Metoprolol Tartrate 25 MG TABLET PO ×2 (09:11→21:37)
[2021-01-25] MEDS: buPROPion HCl XL 300 MG TAB.ER.24H PO (09:11)
[2021-01-25] MEDS: Cyanocobalamin (Vitamin B-12) 500 MCG TABLET PO (09:11)
[2021-01-25] MEDS: Hydrocortisone 1 % Cream 28.35 GM TUBE 1 APPL TOPICAL (11:57)
--- NOTE | 2021-01-25 14:08 | P.PNPSI_ITS ---
Subjective Subjective Date of Service: 01/25/21 Reason For Visit: Alcohol withdrawal, SI Interim History: pt reprots she continues to feel better, still depressed, but she understands that will take some time to improve. would like to discharge tomorrow. no other questions or concerns. per staff, using walker. more visible and social earlier in the day than later. brighter affect, good mood. Mental Status Exam Mental Status Exam Narrative: using walker. street clothing. Self-care improving. mood improved, not irritable. reports she is still depressed, however. No HI/SI expressed. Insight and judgment okay Diagnostics Vital Signs (24Hr): Vital Signs - 24 hr 01/24/21 20:15 01/25/21 09:10 01/25/21 09:11 Temperature 97.4 F 97.4 F Pulse Rate 85 87 87 Respiratory Rate 18 Blood Pressure 132/69 124/67 124/67 Pulse Oximetry 96 96 Body Mass Index 43.8 Medications Medications Current Medications Acetaminophen (Acetaminophen 325 Mg Tablet) 650 mg PO Q6H PRN PRN Reason: Headache/Pain Mild Scale (1-3) Last Admin: 01/22/21 12:47 Dose: 650 mg Documented by: Al Hydroxide/Mg Hydroxide (Magnesium Hydrox/Alum Hydrox 30 Ml Oral.Susp) 30 ml PO Q6H PRN PRN Reason: Heartburn/Nausea Albuterol Sulfate (Albuterol Sulfate 90 Mcg 8 Gm Inhaler) 1 puff INHALE Q4H PRN PRN Reason: wheezing Amlodipine Besylate (Amlodipine Besylate 5 Mg Tablet) 5 mg PO DAILY [facility]; Protocol Last Admin: 01/25/21 09:10 Dose: 5 mg Documented by: Amphetamine/Dextroamphetamine (Amphetamine Mixed Salts 10 Mg Tablet) 30 mg PO BID@0830,1330 [facility] Last Admin: 01/25/21 13:36 Dose: 30 mg Documented by: Benztropine Mesylate (Benztropine Mesylate 0.5 Mg Tablet) 0.5 mg PO BID [facility] Last Admin: 01/25/21 09:11 Dose: 0.5 mg Documented by: Bupropion HCl (Bupropion Hcl Xl 300 Mg Tab.Er.24h) 300 mg PO DAILY [facility] Last Admin: 01/25/21 09:11 Dose: 300 mg Documented by: Cyanocobalamin (Cyanocobalamin (Vitamin B-12) 500 Mcg Tablet) 500 mcg PO DAILY [facility] Last Admin: 01/25/21 09:11 Dose: 500 mcg Documented by: Docusate Sodium (Docusate Sodium 100 Mg Capsule) 100 mg PO DAILY PRN PRN Reason: Constipation Hydrocortisone (Hydrocortisone 1 % Cream 28.35 Gm Tube) 1 appl TOPICAL BID [facility]; Protocol Stop: 01/25/21 14:32 Last Admin: 01/25/21 11:57 Dose: 1 appl Documented by: Hydroxyzine HCl (Hydroxyzine Hcl 25 Mg Tablet) 25 mg PO Q6H PRN PRN Reason: Anxiety Last Admin: 01/23/21 00:58 Dose: 25 mg Documented by: Lurasidone HCl (Lurasidone Hcl 20 Mg Tablet) 60 mg PO BEDTIME [facility] Last Admin: 01/24/21 20:33 Dose: 60 mg Documented by: Magnesium Hydroxide (Milk Of Magnesia 30 Ml Oral.Susp) 30 ml PO DAILY PRN PRN Reason: Constipation Metoprolol Tartrate (Metoprolol Tartrate 25 Mg Tablet) 25 mg PO BID [facility]; Protocol Last Admin: 01/25/21 09:11 Dose: 25 mg Documented by: Mirtazapine (Mirtazapine 15 Mg Tablet) 45 mg PO BEDTIME [facility] Last Admin: 01/24/21 20:34 Dose: 45 mg Documented by: Thiamine HCl (Thiamine Hcl 100 Mg Tablet) 100 mg PO DAILY [facility] Last Admin: 01/25/21 09:10 Dose: 100 mg Documented by: Trazodone HCl (Trazodone Hcl 100 Mg Tablet) 300 mg PO BEDTIME [facility] Last Admin: 01/24/21 20:33 Dose: 300 mg Documented by: Allergies Allergies Allergy/AdvReac Type Severity Reaction Status Date / Time No Known Allergies Allergy Unknown Unverified 11/20/19 16:06 Assessment & Plan Assessment & Plan (1) Bipolar disorder: Status: Acute Code(s): F31.9 - Bipolar disorder, unspecified Assessment and Plan: experiencing current depression in the context of significant loss with her 26-year-old son 1 year anniversary on 12/15/2020. Does have irritability when attempting to discuss current medications, past medication trials and past diagnostic history to clarify manic episodes. Collateral info gathered from tulio chang per Dr. Luque on 01/13 01/11: trazodone increased from 75 mg qhs to 150 mg qhs. 01/12: wellbutrin XL 150 mg daily started for depression, ativan taper initiated, trazodone increased to 200 mg QHS. 01/13- continue per primary treatment team. pt reports depressed mood, anxious mood, missing son, no SI. 01/14 - ativan decreased to BID. 01/15 - wellbutrin increased to 300 mg daily. 01/16: trazodone increased to 250 mg QHS. 01/17: mood remains improved, sleep better. declines further med changes. interested in [facility]. 01/18: remeron started at 15 mg QHS for insomnia. 01/19: remeron increased to 30 mg QHS for insomnia. 01/20: remeron increased to 45 mg QHS for insomnia. 01/21: trazodone increased to 300 mg QHS for insomnia. 01/22 and on: no changes, gradually improving mood. (2) Alcohol withdrawal syndrome: Qualifiers: Complication of substance-induced condition: uncomplicated Qualified Code(s): F10.230 - Alcohol dependence with withdrawal, uncomplicated Status: Resolved Code(s): F10.239 - Alcohol dependence with withdrawal, unspecified Assessment and Plan: completed phenobarb detox. I spent minutes with the patient and/or on the patient floor today, greater than?50% of which was spent counseling/coordinating care. Reason for contiued inpatient stay Substantial Risk for: inability to function and rapid decompensation
[2021-01-25] MEDS: Acetaminophen 325 MG TABLET 650 MG PO ×2 (15:03→21:37)
[2021-01-25 21:33] VITALS: TEMP 36.7; O2SAT 98
[2021-01-25] MEDS: traZODone HCL 100 MG TABLET 300 MG PO (21:36)
[2021-01-25] MEDS: Mirtazapine 15 MG TABLET 45 MG PO (21:36)
[2021-01-25 21:37] VITALS: BP 127/62; PULSE 89
[2021-01-25] MEDS: Lurasidone HCl 20 MG TABLET 60 MG PO (21:37)
[2021-01-26 08:05] VITALS: BP 133/92; PULSE 84; RESP 18; TEMP 36.4; O2SAT 96
[2021-01-26 08:21] VITALS: BP 133/92; PULSE 84
[2021-01-26] MEDS: Amphetamine Mixed Salts 10 MG TABLET 30 MG PO (08:21)
[2021-01-26] MEDS: Metoprolol Tartrate 25 MG TABLET PO (08:21)
[2021-01-26] MEDS: buPROPion HCl XL 300 MG TAB.ER.24H PO (08:21)
[2021-01-26] MEDS: Thiamine HCL 100 MG TABLET PO (08:21)
[2021-01-26] MEDS: Benztropine Mesylate 0.5 MG TABLET PO (08:21)
[2021-01-26 08:22] VITALS: BP 130/86; PULSE 96
[2021-01-26] MEDS: amLODIPine Besylate 5 MG TABLET PO (08:22)
[2021-01-26] MEDS: Cyanocobalamin (Vitamin B-12) 500 MCG TABLET PO (08:22)
--- NOTE | 2021-01-26 10:09 | P.DS_ITS ---
DS: Providers Provider Date of Service: 01/26/21 Date of admission: 01/07/21 11:17 Primary care physician: Unknown Physician DS: Diagnosis Discharge Diagnosis (1) Major depressive disorder with current active episode: Status: Acute (2) Alcohol withdrawal syndrome: Status: Resolved DS: Medications Discharge Medications Home Medications: Home Medications Medication Instructions Recorded Confirmed albuterol sulfate 90 1 puff INHALATION Q4H PRN 01/03/21 01/03/21 mcg/actuation aerosol inhaler dextroamphetamine-amphetamine 1 tab PO BID 01/03/21 01/03/21 30 mg tablet lorazepam 0.5 mg tablet 1 tab PO TID PRN 01/03/21 01/03/21 lurasidone 60 mg tablet 1 tab PO BEDTIME 01/03/21 01/03/21 (Latuda) Previous Rx's Medication Instructions Recorded amlodipine 5 mg tablet 5 mg PO DAILY 30 Days #30 tab 01/26/21 benztropine 0.5 mg tablet 0.5 mg PO BID 30 Days #60 tab 01/26/21 bupropion HCl 300 mg 24 hr tablet, 300 mg PO DAILY 30 Days #30 tab 01/26/21 extended release cyanocobalamin (vitamin B-12) 500 500 mcg PO DAILY 30 Days #30 tab 01/26/21 mcg tablet dextroamphetamine-amphetamine 10 30 mg PO BID@0830,1330 30 Days 01/26/21 mg tablet #180 tab folic acid 1 mg tablet 1 mg PO DAILY 30 Days #30 tab 01/26/21 metoprolol tartrate 25 mg tablet 25 mg PO BID 30 Days #60 tab 01/26/21 mirtazapine 15 mg tablet 45 mg PO BEDTIME 30 Days #90 tab 01/26/21 thiamine mononitrate (vit B1) 100 100 mg PO DAILY 30 Days #30 tab 01/26/21 mg tablet trazodone 100 mg tablet 300 mg PO BEDTIME 30 Days #90 tab 01/26/21 Mental Status Exam Mental Status Exam Narrative: using walker. street clothing. Self-care improving. mood improved, not irritable. reports she is still depressed, however. No HI/SI. Insight and judgment okay DS: Summary Hospital Course Hospital Course: per Corona 01/08 admission note: transfer from the medical floor for ongoing management of depression and suicidal ideation.? Was on the medical floor from 01/03/2021 through 01/07/2021 for alcohol detox.? Was originally in the ED for depression, suicidal thoughts and also intoxication. Reports the anniversary of her son's 1 year ago on 12/15/2020 was a major trigger and led to her relapsing from alcohol.? Has been drinking half a handle a day.? Reports he was speaking with her counselor from [facility] who was concerned and 911 was called.? Main concerns around mood and suicidal statements reports things have been extremely difficult since the of her 26-year-old son and she has been getting increasingly depressed recently.? Reports she has guns from many medication changes with her outpatient psychiatrist, but did not want to discuss these in detail and was irritable at times- ? Preferred this case discussed in detail with her primary team who could also communicate with her psychiatrist.? Reports in addition to mood being down, low energy, low concentration, no motivation, sleep broken.? Appetite intermittently disturbed.? Reports that she does want help with her bipolar disorder and especially depression. Past Psychiatric History: ? Diagnosis of bipolar disorder.? Irritable when attempted to explore manic episodes in the past.? Reports last inpatient episode was over 20 years ago.? Denies history of suicide attempts.? Gets treatment through [facility].? Counselor and a prescriber through [facility].? Irritable when asked about medication trials. Medical Evaluation Reviewed: Yes [facility] Medical History?(Updated 01/08/21 @ 17:38 by Kam Corona MD) Bipolar disorder Hypertension Surgical History? History of Social History:? lives in a 3 family.? She lives alone.? Her father lives in [facility] and reports that he is her main support and extremely positive.? in the 1990s after 20 years.? 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 Due to back issues, unable to work.? Utilizes a walker at home.? Has 2 sons, 26-year-old on 12/15/2020 from an overdose and unclear if this was accidental or intentional.? Also has a 30-year-old son, whom she does not have much contact with. Substance History: ? Alcohol dependence.? History of 5-6 years sobriety.? Recent relapse 12/15/2020 per Rebel 01/10 progress note: pt found sleeping in bed mid-morning, states she did not sleep well last night and asks MD to return later.? MD returns after seeing all other patients, around 11:30.? pt is irritable, asking, so are you just going to ask me all the same questions everyone has asked? ? MD attempts to be brief and to the point in order to build rapport with pt.? she c/o anxiety and depression as her most concerning symptoms.? she states she has a Dx of bipolar disorder and is unable to describe any event in her Hx which would be consistent with a manic episode.? she reports numerous medications trials but cannot recall the details.? she reports her prescriber is alhaji romero at [facility].? she reports she has been taking latuda and ativan for the past couple of months.? in addition, per her report she developed a pill-rolling tremor in her right hand about 2 months ago.? she feels her anxiety is the most troubling symptom.? MD informed her he would contact her prescriber alhaji romero for collateral information in order to inform medication management decisions.? per staff, visible, watching TV.? denied SI once sober but had endorsed it while intoxicated.? med-compliant.? c/o depression, insomnia.? c/o back pain in the night, disrupted sleep.? pleasant, social, eating well. per Rebel 01/11 progress note: pt defers MD visit until latest possible in morning, c/o feeling tired and poor sleep.? she is informed B12 is low and supplement will be started.? c/o racing mind causing poor sleep, agrees to increase trazodone to 150 mg at bedtime.? also agrees to add cogentin 0.5 mg BID for tremor.? informs her no call back from [facility], states she [facility].? therapist tobi.? informs her MD will try again to call alhaji kirkpatrick (last name as corrected by teresita ALBA).? per staff, anxious, isolative. per Rebel 01/12 progress note: collateral obtained from alhaji kirkpatrick.? bipolar Dx unclear, has not been on a proper antidepressant recently.? he has been working with her for 2 years.? he DCed ativan at pharmacy after hearing about the alcohol relapse.? he is supportive of starting an anti-depressant.? pt found in her room late morning ordering food via kitchen staff.? she seems in a better humor than recently.? reviews his information from [facility], pt agrees to trial of wellbutrin.? informs pt ativan will be tapered and DCed, which she is reluctant to agree to, feeling concerned about her anxiety and that the ativan is for anxiety.? she is informed she has hydroxyzine available PRN.? pt also expresses poor sleep last night and agrees for trazodone to be increased to 200 mg at bedtime.? per staff, pt is isolative and napping a lot ut is pleasant when up.? eating well.? taking meds.? not attending groups. per Rebel 01/14 progress note: pt reports she is sleeping better on the 20 mg of trazodone.? she remains anxious and depressed, with little energy or motivation.? informs her w ellbutrin being increased to 300 mg daily as of tomorrow.? pt c/o poor leg strength and impaired ability to walk long distances, asks for PT consult to help with strengthening.? per staff, isolative, sleeping in room.? c/o insomnia but per staff observation, pt is sleeping.? anx/dep 10/12.? encouraging shower but pt declined yesterday. per Rebel 01/17 progress note: pt appears in better humor than earlier on in her stay.? mood remains improved, felt she got an adequate amount of sleep last night.? feels her medications are good where they are for the moment, very much endorses attending [facility] PHP after discharge.? she had just attended group when MD met with her.? per staff, beginning to process of her son last year.? sad, isolative.? slept about 5 hours last night.? got the mat out of her hair, took shower over the weekend. Precis: experiencing current depression in the context of significant loss with her 26-year-old son 1 year anniversary on 12/15/2020.? Does have irritability when attempting to discuss current medications, past medication trials and past diagnostic history? to clarify manic episodes. Collateral info gathered from alhaji kirkpatrick per Dr. Luque on 01/13 01/11: trazodone increased from 75 mg qhs to 150 mg qhs. 01/12: wellbutrin XL 150 mg daily started for depression, ativan taper initiated, trazodone increased to 200 mg QHS. 01/13- continue per primary treatment team. pt reports depressed mood, anxious mood, missing son, no SI. 01/14 - ativan decreased to BID. 01/15 - wellbutrin increased to 300 mg daily. 01/16: trazodone increased to 250 mg QHS. 01/17: mood remains improved, sleep better.? declines further med changes.? interested in [facility]. 01/18: remeron started at 15 mg QHS for insomnia. 01/19: remeron increased to 30 mg QHS for insomnia. 01/20: remeron increased to 45 mg QHS for insomnia. 01/21: trazodone increased to 300 mg QHS for insomnia. 01/22 and on: no changes, gradually improving mood. 01/26: discharged to self care. Time Spent with Patient Time attestation: Total time spent providing and/or coordinating discharge services: Discharge Plan Discharge Patient Disposition: Home, Self-Care Discharge Diagnosis: Major Depressive Disorder, Recurrent, Severe Referrals: ALHAJI KIRKPATRICK, PSYCHIATRY [Other] - 01/31/21 10:40 am (TELEHEALTH) ANASTASIIA PUGA, THERAPIST [Other] - 02/02/21 11:45 am (TELEHEALTH) Volunteer Opportunities [Other] (Call or visit the website above to connect with work and volunteer opportunities.) Meals on Wheels [Other] (They currently do not have funding for their meal program for people under 65, but you were placed on the waitlist for when these services are back up and running) [employer] [Other] (They deliver a meal once a month on Tuesdays, otherwise offer more frequent food pickup throughout the week) [facility] - Physical Therapy [Other] - 1 Week (Someone from [facility] will be calling you Sunday or Sunday to set up Physical Therapy appointment.) Physician,Unknown J [Primary Care Provider] - 1 Week (Kayla Dashlane will call the pt to choose a pcp and to make a follow up appt. Their number 1s [phone]) Discharge Medications: New benztropine 0.5 mg Tablet 0.5 mg PO BID 30 Days Qty: 60 0RF dextroamphetamine-amphetamine 10 mg Tablet 30 mg PO BID@0830,1330 30 Days Qty: 180 0RF amlodipine 5 mg Tablet 5 mg PO DAILY 30 Days Qty: 30 0RF Protocol: Hold for SBP< HOLD for SBP < : 90 trazodone 100 mg Tablet 300 mg PO BEDTIME 30 Days Qty: 90 0RF mirtazapine 15 mg Tablet 45 mg PO BEDTIME 30 Days Qty: 90 0RF bupropion HCl 300 mg Tablet Extended Release 24 Hr 300 mg PO DAILY 30 Days Qty: 30 0RF metoprolol tartrate 25 mg Tablet 25 mg PO BID 30 Days Qty: 60 0RF Protocol: Hold for SBP/HR < HOLD for SBP < : 90 HOLD for HR < : 60 cyanocobalamin (vitamin B-12) 500 mcg Tablet 500 mcg PO DAILY 30 Days Qty: 30 0RF thiamine mononitrate (vit B1) 100 mg Tablet 100 mg PO DAILY 30 Days Qty: 30 0RF folic acid 1 mg tablet 1 mg PO DAILY 30 Days Qty: 30 0RF Continued dextroamphetamine-amphetamine 30 mg tablet 1 tab PO BID 0RF lorazepam 0.5 mg tablet 1 tab PO TID PRN (Reason: Anxiety) 0RF Latuda 60 mg tablet 1 tab PO BEDTIME 0RF albuterol sulfate 90 mcg/actuation HFA aerosol inhaler 1 puff inhalation Q4H PRN (Reason: wheezing) 0RF Discharge Orders: Discharge Order (Routine); Ordered 01/26/21 Ordered By: Mae Charles Diet: advance to usual diet Activity on Discharge: As tolerated Stand Alone Forms: Patient Portal Discharge page, Community Support Care Plan Goals: remain safe and stable in outpatient treatment setting Health Concerns: Hypertension Essential Tremor Plan of Treatment: take medications as prescribed, attend appointments as scheduled Assessment: not at imminent risk of harm to self or others Discharge Date/Time: 01/26/21 11:17
--- NOTE | 2021-01-26 11:17 | PC.NURSE ---
Estelle is alert, fully oriented, pleasant and cooperative with discharge process. She denies ideation, plan or intent to harm herself or others. She denies perceptual disturbance. Discharge paperwork reviewed with patient and father. Both denied questions after teaching related to discharge plan, medications and appointments. Patient denies current physical complaint.
== END 2021-01-26 11:17 | disposition home or self-care (01) | DRG 885 ==
PROVIDERS: Admitting Provider Social Worker; Visit Provider Psychiatry & Neurology Psychiatry
DX: F31.9 Bipolar disorder, unspecified (principal); R45.851 Suicidal ideations; F10.239 Alcohol dependence with withdrawal, unspecified; Z87.891 Personal history of nicotine dependence; Z79.899 Other long term (current) drug therapy
CPT/HCPCS: 36415; 80061; 82607; 82746; 83036; 97116; 97161